=== PATIENT | female | born 1995 | race Caucasian/White ===

== ENCOUNTER 2017-10-31 08:31 | Emergency (ER) | payer MEDICAID, OTHER ==
[2017-10-31 08:53] VITALS: BP 102/73
--- NOTE | 2017-10-31 09:10 | ED Physician Documentation ---
History of Present Illness - Stated complaint Stated Complaint: FEVER - Chief complaint Chief Complaint: Heent - Additonal information Additional information: hx from pt 22 f has aspergers fever and sore throat since yesterday no cough NVD Review of Systems Constitutional: reports: Fever Ears: denies: Ear pain Throat: reports: Sore throat Respiratory: denies: Cough GI: denies: Vomiting, Diarrhea Skin: denies: Rash PD PAST MEDICAL HISTORY - Allergies Allergies/Adverse Reactions: Allergies Allergy/AdvReac Type Severity Reaction Status Date / Time No Known Drug Allergies Allergy Verified 10/31/17 08:53 PD ED PE NORMAL - Vitals Vital signs reviewed: Yes - General General: Alert and oriented X 3 - HEENT HEENT: PERRL, Ears normal, Moist mucous membranes, Pharynx benign - Neck Neck: Supple, no meningeal sign - Cardiac Cardiac: RRR - Respiratory Respiratory: No respiratory distress, Clear bilaterally - Abdomen Abdomen: Soft, Non tender, No organomegaly - Derm Derm: Normal color - Neuro Neuro: Alert and oriented X 3 Results - Vitals Vitals: Vital Signs - 24 hr 10/31/17 08:49 Temperature 36.2 C L Heart Rate 111 H Respiratory 20 Rate Blood Pressure 102/73 O2 Saturation 99 Oxygen O2 Source Room air - Labs Labs: Laboratory Tests 10/31/17 09:13 Group A Strep Rapid Negative Departure - Departure Disposition: 01 Home, Self Care Clinical Impression: Pharyngitis Qualifiers: Pharyngitis/tonsillitis etiology: unspecified etiology Qualified Code(s): J02.9 - Acute pharyngitis, unspecified Condition: Good Instructions: ED Pharyngitis Viral Report Pending Comments: The rapid strep test was negative A throat culture will also be run and we will call you if it is positive and antibiotics are needed Otherwise recommend motrin and tylenol for pain and fever Rest Plenty of fluids Forms: Activity restrictions
== END 2017-10-31 09:49 | disposition home or self-care (01) ==
LOC: ED 08:31
DX: J02.9 Acute pharyngitis, unspecified (principal)
CPT/HCPCS: 87070; 87430; 99282

== ENCOUNTER 2018-03-06 09:05 | Emergency (ER) | payer MEDICAID ==
--- NOTE | 2018-03-06 11:40 | ED Physician Documentation ---
PD HPI FEMALE - Stated complaint Stated Complaint: FEMALE - Chief complaint Chief Complaint: Abd Pain - History obtained from History obtained from: Patient - History of Present Illness Timing - onset: How many days ago (few) Timing - duration: Days Timing - details: Gradual onset, Still present Associated symptoms: Vaginal discharge, Dysuria. 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 : None - Present Medications Home Medications: Ambulatory Orders Medication Instructions Recorded Confirmed Fluconazole [Diflucan] 100 mg PO ONCE #2 tablet 03/06/18 Metronidazole [Flagyl] 500 mg PO BID #14 tablet 03/06/18 - Allergies Allergies/Adverse Reactions: Allergies Allergy/AdvReac Type Severity Reaction Status Date / Time No Known Drug Allergies Allergy Verified 03/06/18 09:52 - Social History Does the pt smoke?: No Smoking Status: Never smoker PD ED PE NORMAL - Vitals Vital signs reviewed: Yes - General General: Alert and oriented X 3, Well developed/nourished, Other (a bit anxious) - HEENT HEENT: Pharynx benign - Neck Neck: Supple, no meningeal sign, No adenopathy - Cardiac Cardiac: RRR, No murmur - Respiratory Respiratory: Clear bilaterally - Abdomen Abdomen: Soft, Non tender - 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 Was able to talk her through just vaginal swabs done with slightly parted labia. There was some whitish discharge noted. Labial area normal. ) - Rectal Rectal: Deferred - Back Back: No CVA TTP - Derm Derm: Normal color, Warm and dry Results - Vitals Vitals: Oxygen O2 Source Room air - Labs Labs: Microbiology 03/06/18 13:32 Wet Prep - Final Vaginal Laboratory Tests 03/06/18 03/06/18 03/06/18 12:22 12:22 13:32 Urine Color YELLOW Urine Clarity CLEAR Urine pH 6.0 Ur Specific [place] >=1.030 H >=1.030 H Urine Protein NEGATIVE Urine Glucose (UA) NEGATIVE Urine Ketones NEGATIVE Urine Occult Blood NEGATIVE Urine Nitrite NEGATIVE Urine Bilirubin NEGATIVE Urine Urobilinogen 1 (NORMAL) Ur Leukocyte Esterase NEGATIVE Ur Microscopic Review NOT INDICATED Urine Culture Comments NOT INDICATED Urine HCG, Qual NEGATIVE C.trachomatis RNA (TMA) NOT DETECTED Chlamydia/GC Comment SEE NOTE N.gonorrhoeae RNA (TMA) NOT DETECTED PD MEDICAL DECISION MAKING - ED course Complexity details: considered differential, d/w patient - Sepsis Event Vital Signs: Oxygen O2 Source Room air Departure - Departure Disposition: Home, Self Care Clinical Impression: Vaginal discharge, Bacterial vaginitis Condition: Stable Record reviewed to determine appropriate education?: Yes Instructions: ED Vaginosis Bacterial Prescriptions: Fluconazole [Diflucan] 100 mg PO ONCE #2 tablet Metronidazole [Flagyl] 500 mg PO BID #14 tablet Comments: The initial test of your vaginal discharge shows there to be a bacterial infection. There may be some element of yeast infection as well. We will treated with Flagyl antibiotic twice daily for a week. We will also give you an antifungal tablet to take initially in 2 days and then a repeat one at the end of the week of antibiotics. Drink lots of fluids. Tylenol or ibuprofen if needed for pains or discomfort. Follow-up with your primary care if this is not cleared up over the next several days to week. Discharge Date/Time: 03/06/18 14:30
[2018-03-06 12:31] LABS: BILIRUBIN,URINE NEGATIVE (NEGATIVE); GLUCOSE, URINE (UA) NEGATIVE (NEGATIVE); KETONES,URINE (UA) NEGATIVE (NEGATIVE); LEUKOCYTE ESTERASE, URINE NEGATIVE (NEGATIVE); NITRITE,URINE NEGATIVE (NEGATIVE); OCCULT BLOOD,URINE NEGATIVE (NEGATIVE); PROTEIN,URINE NEGATIVE (NEGATIVE); UROBILINOGEN,URINE 1 (NORMAL) E.U./dL (NORMAL)
[2018-03-06 12:35] LABS: CLARITY,URINE CLEAR (CLEAR); HCG UR QUAL NEGATIVE
[2018-03-06] MEDS ORDERED: metroNIDAZOLE 250 MG TABLET PO STA (14:07)
[2018-03-06 14:33] VITALS: BP 120/88
== END 2018-03-06 14:30 | disposition home or self-care (01) ==
LOC: ED 09:05
DX: N76.0 Acute vaginitis (principal)
CPT/HCPCS: 81003; 81025; 87210; 87491; 87591; 99283; A9270; 81001; 87086

== ENCOUNTER 2018-09-15 14:28 | Emergency (ER) | payer MEDICAID ==
[2018-09-15] MEDS ORDERED: DEXAMETHASONE 10 MG/ML VIAL PO STA (14:52)
[2018-09-15] MEDS ORDERED: guaiFENesin/CODEINE 5 ML UDC PO STA (14:52)
--- NOTE | 2018-09-15 14:53 | ED Physician Documentation ---
PD HPI URI - Stated complaint Stated Complaint: SORE THROAT/FEVER - Chief complaint Chief Complaint: Heent - History obtained from History obtained from: Patient, Family - History of Present Illness Timing - onset: Other (She is been sick for 3 days with cough, low-grade fevers, sore throat and difficulty swallowing. She has had some posttussive emesis. No sick contacts.) Review of Systems Constitutional: reports: Fever, Fatigue Nose: reports: Rhinorrhea / runny nose Throat: reports: Sore throat Respiratory: reports: Cough. 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 : None - Past Surgical History Past Surgical History: No - Present Medications Home Medications: Ambulatory Orders Medication Instructions Recorded Confirmed Fluconazole [Diflucan] 100 mg PO ONCE #2 tablet 03/06/18 Metronidazole [Flagyl] 500 mg PO BID #14 tablet 03/06/18 guaiFENesin/CODEINE [Robitussin AC] 5 - 10 ml PO Q6H PRN #120 ml 09/15/18 - Allergies Allergies/Adverse Reactions: Allergies Allergy/AdvReac Type Severity Reaction Status Date / Time No Known Drug Allergies Allergy Verified 09/15/18 14:35 - Social History Does the pt smoke?: No Smoking Status: Never smoker Does the pt drink ETOH?: Yes Does the pt have substance abuse?: No - Immunizations Immunizations are current?: Yes - POLST Patient has POLST: No PD ED PE NORMAL - Vitals Vital signs reviewed: Yes - General General: Alert and oriented X 3, No acute distress - HEENT HEENT: Pharynx benign - Neck Neck: Supple, no meningeal sign, No bony TTP, No adenopathy - Cardiac Cardiac: RRR, No murmur - Respiratory Respiratory: No respiratory distress, Clear bilaterally - Abdomen Abdomen: Non tender - Psych Psych: Normal mood, Normal affect Results - Vitals Vitals: Vital Signs - 24 hr 09/15/18 14:35 Temperature 36.8 C Heart Rate 98 Respiratory 16 Rate Blood Pressure 132/92 H O2 Saturation 97 Oxygen O2 Source Room air - Labs Labs: Laboratory Tests 09/15/18 09/15/18 14:40 14:40 Influenza A (Rapid) Negative Influenza B (Rapid) Negative Group A Strep Rapid Negative Departure - Departure Disposition: 01 Home, Self Care Clinical Impression: Viral URI with cough Condition: Good Record reviewed to determine appropriate education?: Yes Instructions: ED Upper Resp Infec No Abx Tx Prescriptions: guaiFENesin/CODEINE [Robitussin AC] 5 - 10 ml PO Q6H PRN #120 ml PRN Reason: Cough Comments: Recheck with your doctor midweek if not better, return for new or worsening symptoms. Your blood pressure was elevated today on check into the emergency department. This does not mean that you have hypertension, it is a common phenomenon to come to the emergency department and have elevated blood pressure. I recommend that you see your primary care physician within the week to have it rechecked when you are feeling better.
[2018-09-15 15:19] VITALS: BP 131/75
== END 2018-09-15 15:21 | disposition home or self-care (01) ==
LOC: ED 14:28
DX: J06.9 Acute upper respiratory infection, unspecified (principal); B97.89 Other viral agents as the cause of diseases classified elsewhere
CPT/HCPCS: 87070; 87275; 87276; 87430; 99283; A9270

== ENCOUNTER 2018-09-16 22:53 | Emergency (ER) | payer MEDICAID ==
[2018-09-16] MEDS ORDERED: IBUPROFEN 600 MG TABLET PO STA (23:38)
[2018-09-17] MEDS ORDERED: guaiFENesin/CODEINE 5 ML UDC PO STA (00:20)
[2018-09-17] MEDS ORDERED: BENZONATATE 100 MG CAPSULE PO STA (00:20)
[2018-09-17] MEDS ORDERED: DEXAMETHASONE 10 MG/ML VIAL PO STA (00:20)
[2018-09-17] MEDS ORDERED: ALBUTEROL NEB 2.5 MG/3 ML INH STA (00:20)
[2018-09-17 00:44] VITALS: BP 119/81
--- NOTE | 2018-09-17 00:46 | ED Physician Documentation ---
PD HPI URI - Stated complaint Stated Complaint: FEVER - Chief complaint Chief Complaint: Fever - History obtained from History obtained from: Patient, Family - History of Present Illness Timing - onset: How many days ago (4) Timing duration: Days (4) Timing details: Abrupt onset, Still present Associated symptoms: Fever, Chills, Nasal congestion, Dry cough, Chest pain (with coughing) Contributing factors: No: Sick contact, COPD / asthma Similar symptoms before: Has not had sx before Recently seen: Emergency Dept (yesterday and Dx with URi and given Rx for cough medication. Helps some but feeling some tightness in chest and still with cough that hurts in chest.) Review of Systems Constitutional: reports: Fever, Chills, Myalgias Nose: reports: Rhinorrhea / runny nose, Congestion Throat: denies: Sore throat Cardiac: reports: Chest pain / pressure (with coughing) Respiratory: reports: Dyspnea, Cough, Wheezing GI: denies: Vomiting, Diarrhea Skin: denies: Rash, Lesions Neurologic: reports: Generalized weakness. 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 HEENT: None Psych: Other Musculoskeletal: None Derm: None Other Past Medical History: Autism - Past Surgical History Past Surgical History: No HEENT: Other - Present Medications Home Medications: Ambulatory Orders Medication Instructions Recorded Confirmed guaiFENesin/CODEINE [Robitussin AC] 5 - 10 ml PO Q6H PRN #120 ml 09/15/18 Alprazolam [Xanax] 0.25 mg PO PRN PRN 09/16/18 09/16/18 Albuterol Sulf [Ventolin Hfa 1 - 2 puffs INH Q4HR PRN #1 inhaler 09/17/18 Inhaler] Benzonatate [Tessalon Perle] 100 mg PO TID PRN #20 capsule 09/17/18 Dexamethasone [Decadron] 4 mg PO DAILY #5 tablet 09/17/18 guaiFENesin/CODEINE [Robitussin AC] 7 ml PO Q6H PRN #240 ml 09/17/18 - Allergies Allergies/Adverse Reactions: Allergies Allergy/AdvReac Type Severity Reaction Status Date / Time No Known Drug Allergies Allergy Verified 09/16/18 23:04 - Social History Does the pt smoke?: No Smoking Status: Never smoker Does the pt drink ETOH?: Yes Does the pt have substance abuse?: No - Immunizations Immunizations are current?: Yes - POLST Patient has POLST: No PD ED PE NORMAL - Vitals Vital signs reviewed: Yes - General General: Alert and oriented X 3, No acute distress, Well developed/nourished - HEENT HEENT: Ears normal, Pharynx benign - Neck Neck: Supple, no meningeal sign, No adenopathy - Cardiac Cardiac: RRR, No murmur - Respiratory Respiratory: No: Clear bilaterally (some exp wheezing, more with cough.) - Abdomen Abdomen: Soft, Non tender - Derm Derm: Normal color, Warm and dry, No rash - Neuro Neuro: Alert and oriented X 3, No motor deficit, Normal speech Results - Vitals Vitals: Vital Signs - 24 hr 09/16/18 09/16/18 09/17/18 22:57 23:39 00:42 Temperature 38.6 C H 38.2 C H 38.2 C H Heart Rate 126 H 113 H 105 H Respiratory 22 18 21 Rate Blood Pressure 117/67 119/81 H O2 Saturation 97 96 09/17/18 00:45 Temperature Heart Rate 75 Respiratory 18 Rate Blood Pressure O2 Saturation Oxygen O2 Source Room air PD MEDICAL DECISION MAKING - ED course Complexity details: reviewed old records, considered differential (seems URI. consider flu. Having some wheezing and trouble breathing, so can give MDI and steroids. Dad says pt about out of the cough med, so can give Tessalon and more cough med. ), d/w patient, d/w family Departure - Departure Disposition: 01 Home, Self Care Clinical Impression: Viral URI with cough Condition: Stable Record reviewed to determine appropriate education?: Yes Instructions: ED Upper Resp Infec No Abx Tx Follow-Up: Lydia Siddiqui DO [Primary Care Provider] - Prescriptions: Albuterol Sulf [Ventolin Hfa Inhaler] 1 - 2 puffs INH Q4HR PRN #1 inhaler PRN Reason: Shortness Of Air/Wheezing Benzonatate [Tessalon Perle] 100 mg PO TID PRN #20 capsule PRN Reason: Cough Dexamethasone [Decadron] 4 mg PO DAILY #5 tablet guaiFENesin/CODEINE [Robitussin AC] 7 ml PO Q6H PRN #240 ml PRN Reason: Cough Comments: Stay well-hydrated. Tylenol or ibuprofen if needed for pains and fevers. Use the albuterol inhaler 2 puffs 4 times a day for the next week. Extra times if needed for wheezing and cough. Decadron steroid for inflammation of the bronchials and throat and these will help symptoms. Use is daily for the next 5 days. Tessalon if needed for cough. Add the codeine cough medicine if needed. Recheck if not improving over the next several days. Discharge Date/Time: 09/17/18 01:10
== END 2018-09-17 01:10 | disposition home or self-care (01) ==
LOC: ED 22:53
DX: J06.9 Acute upper respiratory infection, unspecified (principal)
CPT/HCPCS: 94640; 99283; A9270

== ENCOUNTER 2019-01-17 15:48 | Emergency (ER) | payer MEDICAID ==
[2019-01-17 16:30] LABS: BILIRUBIN,URINE NEGATIVE (NEGATIVE); GLUCOSE, URINE (UA) NEGATIVE (NEGATIVE); KETONES,URINE (UA) TRACE mg/dL (NEGATIVE); LEUKOCYTE ESTERASE, URINE NEGATIVE (NEGATIVE); NITRITE,URINE NEGATIVE (NEGATIVE); OCCULT BLOOD,URINE SMALL (NEGATIVE); PROTEIN,URINE TRACE mg/dL (NEGATIVE); UROBILINOGEN,URINE 1 (NORMAL) E.U./dL (NORMAL)
[2019-01-17 16:42] LABS: CLARITY,URINE HAZY (CLEAR); HCG UR QUAL NEGATIVE
[2019-01-17 16:43] LABS: BACTERIA,URINE Many /HPF (None Seen); RBC,URINE 0-5 /HPF (0-5); SQUAMOUS EPITHELIAL CELL,UR MANY Squamous (<= Few)
--- NOTE | 2019-01-17 17:06 | ED Physician Documentation ---
History of Present Illness - Stated complaint Stated Complaint: VOMITING - Chief complaint Chief Complaint: Abd Pain - History obtained from History obtained from: Patient - Additonal information Additional information: Patient is a 23-year-old female with history of autismAsperger's and ADHD presenting with her family with concern for worsening stress and anxiety over the past several days. Patient originally suffered a bug bite to the posterior aspect of her right lower leg that has now resolved. Patient denies pain, skin changes, swelling, or other complaints to the leg. However, her father assisted her with placing hydrocortisone cream on it as he and her mother have done previously. However, this time, the interaction caused anxiety and the patient. Patient and family deny any other inappropriate behavior or being unsafe at home. Patient also reports that she is experience some nausea and vomiting over the past several days without abdominal pain, but admits to little oral intake and otherwise using alcohol. Patient denies fever, urinary changes, stool changes or other complaints. No other improving or worsening factors noted. Review of Systems Constitutional: denies: Fever GI: reports: Nausea, Vomiting. 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 : None HEENT: None Psych: Other Musculoskeletal: None Derm: None - Past Surgical History Past Surgical History: No HEENT: Other - Present Medications Home Medications: Ambulatory Orders Medication Instructions Recorded Confirmed guaiFENesin/CODEINE [Robitussin AC] 5 - 10 ml PO Q6H PRN #120 ml 09/15/18 Alprazolam [Xanax] 0.25 mg PO PRN PRN 09/16/18 09/16/18 Benzonatate [Tessalon Perle] 100 mg PO TID PRN #20 capsule 09/17/18 RX: Albuterol Sulf [Ventolin Hfa 1 - 2 puffs INH Q4HR PRN #1 inhaler 09/17/18 Inhaler] dexAMETHasone [Decadron] 4 mg PO DAILY #5 tablet 09/17/18 guaiFENesin/CODEINE [Robitussin AC] 7 ml PO Q6H PRN #240 ml 09/17/18 - Allergies Allergies/Adverse Reactions: Allergies Allergy/AdvReac Type Severity Reaction Status Date / Time No Known Drug Allergies Allergy Verified 01/17/19 15:58 - Social History Does the pt smoke?: No Smoking Status: Never smoker Does the pt drink ETOH?: Yes Does the pt have substance abuse?: No - Immunizations Immunizations are current?: Yes - POLST Patient has POLST: No PD ED PE NORMAL - Vitals Vital signs reviewed: Yes - General General: Alert and oriented X 3, Well developed/nourished. No: No acute distress (Anxious) - HEENT HEENT: Atraumatic, Moist mucous membranes - Cardiac Cardiac: RRR, No murmur - Respiratory Respiratory: No respiratory distress, Clear bilaterally - Abdomen Abdomen: Normal bowel sounds, Soft, Non tender, Non distended - Derm Derm: Normal color, Warm and dry, No rash - Extremities Extremities: No deformity, No tenderness to palpate - Neuro Neuro: Alert and oriented X 3, No motor deficit, No sensory deficit - Psych Psych: Other (Anxious) Results - Vitals Vitals: Vital Signs - 24 hr 01/17/19 01/17/19 15:54 17:34 Temperature 36.4 C L 36.0 C L Heart Rate 100 88 Respiratory 19 18 Rate Blood Pressure 143/88 H 134/83 H O2 Saturation 96 97 Oxygen O2 Source Room air - Labs Labs: Laboratory Tests 01/17/19 16:17 Urine Color YELLOW Urine Clarity HAZY Urine pH 6.0 Ur Specific [place] >=1.030 H Urine Protein TRACE Urine Glucose (UA) NEGATIVE Urine Ketones TRACE Urine Occult Blood SMALL H Urine Nitrite NEGATIVE Urine Bilirubin NEGATIVE Urine Urobilinogen 1 (NORMAL) Ur Leukocyte Esterase NEGATIVE Urine RBC 0-5 Urine WBC 4-5 Ur Squamous Epith Cells MANY Squamous H Urine Bacteria Many H Ur Microscopic Review INDICATED Urine Culture Comments NOT INDICATED Urine HCG, Qual NEGATIVE PD MEDICAL DECISION MAKING - ED course Complexity details: considered differential, d/w patient, d/w family ED course: Patient appears to be struggling with anxiety at this time. She does admit to nausea and vomiting although has benign abdomen. Certainly, no acute or surgical abdomen present. Feel that the symptoms are likely reflective of her underlying anxiety, as well as her minimal oral intake combined with alcohol intake over the past few days. At this time, do not feel that she is at high risk for other intra-abdominal pathology, ovarian or pelvic pathology, systemic illness or other acute issues. Offered further evaluation, but patient also agrees that this is likely related to anxiety and declines. Do feel this is appropriate. Do not feel she requires screening lab work, urinalysis or other testing. Patient and family also declined anxiety medications. Patient and family feel that she is safe to discharge home. Discussed supportive cares, return precautions, appropriate follow-up. Departure - Departure Disposition: 01 Home, Self Care Clinical Impression: Anxiety Instructions: ED Stress React, ED Panic Attack Follow-Up: your,doctor [Other] - Within 3 Days Comments: Recommend rest, healthy diet, avoidance of alcohol and other drugs. Please follow-up with your primary care physician in next 2 to 3 days and return to ED sooner if experience worsening symptoms or have other concerns. Discharge Date/Time: 01/17/19 17:34
[2019-01-17 17:34] VITALS: BP 134/83
== END 2019-01-17 17:34 | disposition home or self-care (01) ==
LOC: ED 15:48
DX: F41.9 Anxiety disorder, unspecified (principal); F84.5 Asperger's syndrome; F90.9 Attention-deficit hyperactivity disorder, unspecified type
CPT/HCPCS: 80053; 81001; 81003; 81025; 83690; 85025; 87086; 99283

== ENCOUNTER 2019-01-18 05:13 | Emergency (ER) | payer MEDICAID ==
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
[2019-01-18 07:04] LABS: MUDS CUTOFF CONCENTRATIONS CUTOFF CONC BELOW:
[2019-01-18 07:06] LABS: CLARITY,URINE CLEAR (CLEAR); GLUCOSE, URINE (UA) NEGATIVE (NEGATIVE); KETONES,URINE (UA) >=80 mg/dL (NEGATIVE); LEUKOCYTE ESTERASE, URINE NEGATIVE (NEGATIVE); NITRITE,URINE NEGATIVE (NEGATIVE); OCCULT BLOOD,URINE TRACE-INTA (NEGATIVE); PROTEIN,URINE TRACE mg/dL (NEGATIVE); UROBILINOGEN,URINE 1 (NORMAL) E.U./dL (NORMAL)
[2019-01-18 07:09] LABS: BILIRUBIN,URINE NEGATIVE (NEGATIVE); HCG UR QUAL NEGATIVE; ICTOTEST,URINE NEGATIVE
[2019-01-18 07:14] LABS: BASOPHILS # (AUTO) 0.1 10^3/uL (0.0-0.1); BASOPHILS % (AUTO) 0.5 %; EOSINOPHILS # (AUTO) 0.1 10^3/uL (0.0-0.7); EOSINOPHILS % (AUTO) 0.3 %; HGB - HEMOGLOBIN 13.5 g/dL (12.0-16.0); LYMPHOCYTES # (AUTO) 4.8 10^3/uL (1.5-3.5); MEAN CORPUSCULAR HEMOGLOBIN 30.1 pg (27.0-31.0); MEAN CORPUSCULAR HGB CONC 33.8 g/dL (32.0-36.0); MEAN CORPUSCULAR VOLUME 89.3 fL (81.0-99.0); MEAN PLATELET VOLUME 10.1 fL (7.9-10.8); MONOCYTES # (AUTO) 1.1 10^3/uL (0.0-1.0); MONOCYTES % (AUTO) 7.1 %; NEUTROPHILS # (AUTO) 9.8 10^3/uL (1.5-6.6); NEUTROPHILS % (AUTO) 61.6 %; PLT - PLATELET COUNT 340 10^3/uL (130-450); RED BLOOD COUNT 4.48 10^6/uL (4.20-5.40)
[2019-01-18] MEDS ORDERED: LORazepam 0.5 MG TABLET PO STA (07:15)
[2019-01-18 07:16] LABS: AMPHETAMINE SCREEN,URINE NEGATIVE (NEGATIVE); BENZODIAZEPINES SCREEN, URINE POSITIVE (NEGATIVE); COCAINE SCREEN URINE NEGATIVE (NEGATIVE); METHADONE SCREEN, URINE NEGATIVE (NEGATIVE); METHAMPHETAMINES SCREEN, URINE NEGATIVE (NEGATIVE); OPIATE SCREEN, URINE NEGATIVE (NEGATIVE); OXYCODONE SCREEN, URINE NEGATIVE (NEGATIVE); PROPOXYPHENE SCREEN, URINE NEGATIVE (NEGATIVE); TRICYCLIC ANTIDEPRESSANT,URINE NEGATIVE (NEGATIVE)
[2019-01-18 07:29] LABS: ACETAMINOPHEN < 10 ug/mL (10-30); ALBUMIN 4.3 g/dL (3.2-5.5); ALBUMIN/GLOBULIN RATIO 1.1 (1.0-2.2); ALKALINE PHOSPHATASE 59 IU/L (42-121); ALT ALANINE AMINOTRANSFERASE 18 IU/L (10-60); AST ASPARTATE AMINOTRANSFERASE 21 IU/L (10-42); BILIRUBIN,TOTAL 1.1 mg/dL (0.2-1.0); BUN - BLOOD UREA NITROGEN 10 mg/dL (6-20); CALCIUM 9.2 mg/dL (8.5-10.3); CARBON DIOXIDE - CO2 20 mmol/L (21-32); CHLORIDE 104 mmol/L (101-111); CREATININE 0.7 mg/dL (0.4-1.0); GFR - MDRD 105 (>89); GLUCOSE 92 mg/dL (70-100); LIPASE 42 U/L (22-51); SALICYLATE < 6.0 mg/dL; SODIUM 140 mmol/L (135-145); TOTAL PROTEIN 8.1 g/dL (6.7-8.2)
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
[2019-01-18 11:14] VITALS: BP 134/87
== END 2019-01-18 11:00 | disposition home or self-care (01) ==
LOC: ED 05:13
DX: F41.9 Anxiety disorder, unspecified (principal); G47.00 Insomnia, unspecified; F43.10 Post-traumatic stress disorder, unspecified; Z62.810 Personal history of physical and sexual abuse in childhood; F84.5 Asperger's syndrome; F17.200 Nicotine dependence, unspecified, uncomplicated
CPT/HCPCS: 36415; 80053; 80306; 80307; 80320; 80329; 81003; 81025; 83690; 84443; 85025; 99283; A9270; 81001; 87086

== ENCOUNTER 2019-01-18 22:22 | Emergency (ER) | payer MEDICAID ==
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
[2019-01-18] MEDS ORDERED: LORazepam 1 MG TABLET PO STA (23:19)
[2019-01-18 23:32] LABS: GLUCOSE, URINE (UA) NEGATIVE (NEGATIVE); KETONES,URINE (UA) >=80 mg/dL (NEGATIVE); LEUKOCYTE ESTERASE, URINE TRACE (NEGATIVE); NITRITE,URINE NEGATIVE (NEGATIVE); OCCULT BLOOD,URINE TRACE-LYSE (NEGATIVE); PROTEIN,URINE NEGATIVE (NEGATIVE); UROBILINOGEN,URINE 2 E.U./dL (NORMAL)
[2019-01-18 23:33] LABS: CLARITY,URINE CLEAR (CLEAR)
[2019-01-18 23:34] LABS: BILIRUBIN,URINE NEGATIVE (NEGATIVE); HCG UR QUAL NEGATIVE; ICTOTEST,URINE NEGATIVE
[2019-01-18 23:39] LABS: BACTERIA,URINE Moderate /HPF (None Seen); CRYSTALS,URINE 3-5 Calcium Oxalate /LPF; MUCUS,URINE Moderate Strands; RBC,URINE 0-5 /HPF (0-5); SQUAMOUS EPITHELIAL CELL,UR MOD Squamous (<= Few)
[2019-01-18 23:46] LABS: BASOPHILS % (AUTO) 0.4 %; EOSINOPHILS % (AUTO) 0.3 %; LYMPHOCYTES # (AUTO) 2.4 10^3/uL (1.5-3.5); LYMPHOCYTES % (AUTO) 21.7 %; MEAN CORPUSCULAR HGB CONC 33.9 g/dL (32.0-36.0); MEAN CORPUSCULAR VOLUME 88.5 fL (81.0-99.0); MEAN PLATELET VOLUME 9.9 fL (7.9-10.8); MONOCYTES # (AUTO) 0.7 10^3/uL (0.0-1.0); MONOCYTES % (AUTO) 6.3 %; NEUTROPHILS # (AUTO) 7.7 10^3/uL (1.5-6.6); NEUTROPHILS % (AUTO) 70.7 %; PLT - PLATELET COUNT 316 10^3/uL (130-450); RED BLOOD COUNT 4.34 10^6/uL (4.20-5.40); WHITE BLOOD COUNT 10.9 x10^3/uL (4.8-10.8)
[2019-01-19] LABS: ACETAMINOPHEN < 10 ug/mL (10-30); BUN - BLOOD UREA NITROGEN 9 mg/dL (6-20); CALCIUM 9.3 mg/dL (8.5-10.3); CARBON DIOXIDE - CO2 20 mmol/L (21-32); CHLORIDE 104 mmol/L (101-111); CREATININE 0.7 mg/dL (0.4-1.0); GFR - MDRD 105 (>89); GLUCOSE 83 mg/dL (70-100); SALICYLATE < 6.0 mg/dL; SODIUM 139 mmol/L (135-145)
[2019-01-19] MEDS ORDERED: LORazepam 0.5 MG TABLET PO STA ×2 (05:06→05:46)
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
[2019-01-19 07:49] LABS: MUDS CUTOFF CONCENTRATIONS CUTOFF CONC BELOW:
[2019-01-19 08:01] LABS: AMPHETAMINE SCREEN,URINE NEGATIVE (NEGATIVE); BENZODIAZEPINES SCREEN, URINE POSITIVE (NEGATIVE); COCAINE SCREEN URINE NEGATIVE (NEGATIVE); METHADONE SCREEN, URINE NEGATIVE (NEGATIVE); METHAMPHETAMINES SCREEN, URINE NEGATIVE (NEGATIVE); OPIATE SCREEN, URINE NEGATIVE (NEGATIVE); OXYCODONE SCREEN, URINE NEGATIVE (NEGATIVE); PROPOXYPHENE SCREEN, URINE NEGATIVE (NEGATIVE); TRICYCLIC ANTIDEPRESSANT,URINE NEGATIVE (NEGATIVE)
[2019-01-19] MEDS ORDERED: LORazepam 1 MG TABLET PO STA ×2 (13:27→21:27)
--- NOTE | 2019-01-19 18:09 | ED Physician Documentation ---
ED Addendum - Addendum Addendum: 01/19/19 18:08 SW and MARCUS are evaluating the patient. Signed out to oncoming emergency department physician
[2019-01-19 23:27] VITALS: BP 126/85
== END 2019-01-19 23:20 | disposition home or self-care (01) ==
LOC: ED 22:22
DX: F41.9 Anxiety disorder, unspecified (principal); G47.00 Insomnia, unspecified; F43.10 Post-traumatic stress disorder, unspecified; Z62.810 Personal history of physical and sexual abuse in childhood; F84.5 Asperger's syndrome; F17.200 Nicotine dependence, unspecified, uncomplicated
CPT/HCPCS: 36415; 80048; 80053; 80306; 80307; 80320; 80329; 81001; 81003; 81025; 83690; 84443; 85025; 99283; A9270; J8499; 87086

== ENCOUNTER 2019-02-03 06:50 | Emergency (ER) | payer MEDICAID ==
[2019-02-03 06:57] VITALS: BP 119/74
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
== END 2019-02-03 08:32 | disposition home or self-care (01) ==
LOC: ED 06:50
DX: F43.10 Post-traumatic stress disorder, unspecified (principal); F17.200 Nicotine dependence, unspecified, uncomplicated
CPT/HCPCS: 99282; 99283

== ENCOUNTER 2019-02-15 20:32 | Outpatient (CLI) | payer MEDICAID | END 2019-02-15 20:33 | disposition EMS.NT | LOC: EMS 20:32 | PROVIDERS: ATTEND Surgery | DX: R45.89 Other symptoms and signs involving emotional state (principal); F41.9 Anxiety disorder, unspecified ==

== ENCOUNTER 2019-02-15 21:15 | Emergency (ER) | payer MEDICAID ==
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
[2019-02-15 23:07] LABS: BASOPHILS % (AUTO) 0.4 %; EOSINOPHILS # (AUTO) 0.1 10^3/uL (0.0-0.7); HGB - HEMOGLOBIN 13.6 g/dL (12.0-16.0); LYMPHOCYTES % (AUTO) 38.5 %; MEAN CORPUSCULAR HEMOGLOBIN 29.8 pg (27.0-31.0); MEAN CORPUSCULAR VOLUME 90.2 fL (81.0-99.0); MEAN PLATELET VOLUME 10.5 fL (7.9-10.8); MONOCYTES # (AUTO) 0.6 10^3/uL (0.0-1.0); MONOCYTES % (AUTO) 5.5 %; NEUTROPHILS # (AUTO) 5.7 10^3/uL (1.5-6.6); NEUTROPHILS % (AUTO) 54.3 %; PLT - PLATELET COUNT 314 10^3/uL (130-450); RED BLOOD COUNT 4.57 10^6/uL (4.20-5.40); RED CELL DISTRIBUTION WIDTH 12.1 % (12.0-15.0); WHITE BLOOD COUNT 10.5 x10^3/uL (4.8-10.8)
[2019-02-15 23:16] LABS: BILIRUBIN,URINE NEGATIVE (NEGATIVE); GLUCOSE, URINE (UA) NEGATIVE (NEGATIVE); KETONES,URINE (UA) TRACE mg/dL (NEGATIVE); LEUKOCYTE ESTERASE, URINE NEGATIVE (NEGATIVE); NITRITE,URINE NEGATIVE (NEGATIVE); OCCULT BLOOD,URINE NEGATIVE (NEGATIVE); PROTEIN,URINE NEGATIVE (NEGATIVE); UROBILINOGEN,URINE 1 (NORMAL) E.U./dL (NORMAL)
[2019-02-15 23:18] LABS: CLARITY,URINE CLEAR (CLEAR); HCG UR QUAL NEGATIVE; MUDS CUTOFF CONCENTRATIONS CUTOFF CONC BELOW:
[2019-02-15 23:29] LABS: AMPHETAMINE SCREEN,URINE NEGATIVE (NEGATIVE); BENZODIAZEPINES SCREEN, URINE POSITIVE (NEGATIVE); COCAINE SCREEN URINE NEGATIVE (NEGATIVE); METHADONE SCREEN, URINE NEGATIVE (NEGATIVE); METHAMPHETAMINES SCREEN, URINE NEGATIVE (NEGATIVE); OPIATE SCREEN, URINE NEGATIVE (NEGATIVE); OXYCODONE SCREEN, URINE NEGATIVE (NEGATIVE); PROPOXYPHENE SCREEN, URINE NEGATIVE (NEGATIVE); TRICYCLIC ANTIDEPRESSANT,URINE NEGATIVE (NEGATIVE)
[2019-02-15 23:37] LABS: ACETAMINOPHEN < 10 ug/mL (10-30); SALICYLATE < 6.0 mg/dL
[2019-02-15 23:39] LABS: BUN - BLOOD UREA NITROGEN 13 mg/dL (6-20); CALCIUM 9.3 mg/dL (8.5-10.3); CARBON DIOXIDE - CO2 20 mmol/L (21-32); CHLORIDE 106 mmol/L (101-111); CREATININE 0.7 mg/dL (0.4-1.0); GFR - MDRD 105 (>89); GLUCOSE 90 mg/dL (70-100); SODIUM 139 mmol/L (135-145)
[2019-02-16 10:27] VITALS: BP 117/70
== END 2019-02-16 10:27 | disposition home or self-care (01) ==
LOC: ED 21:15
DX: F41.9 Anxiety disorder, unspecified (principal); F43.10 Post-traumatic stress disorder, unspecified; F17.200 Nicotine dependence, unspecified, uncomplicated
CPT/HCPCS: 36415; 80048; 80306; 80307; 80320; 80329; 81001; 81003; 81025; 85025; 87086; 99283; 99284

== ENCOUNTER 2019-02-16 22:28 | Outpatient (CLI) | payer MEDICAID | END 2019-02-16 22:29 | disposition critical access hospital (66) | LOC: EMS 22:28 | PROVIDERS: ATTEND Surgery | DX: R45.89 Other symptoms and signs involving emotional state (principal); F41.9 Anxiety disorder, unspecified | CPT/HCPCS: A0425; A0429; A0999 ==

== ENCOUNTER 2019-02-16 22:44 | Emergency (ER) | payer MEDICAID ==
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
[2019-02-17 00:43] LABS: MUDS CUTOFF CONCENTRATIONS CUTOFF CONC BELOW:
[2019-02-17 01:03] LABS: AMPHETAMINE SCREEN,URINE NEGATIVE (NEGATIVE); BENZODIAZEPINES SCREEN, URINE POSITIVE (NEGATIVE); COCAINE SCREEN URINE NEGATIVE (NEGATIVE); METHADONE SCREEN, URINE NEGATIVE (NEGATIVE); METHAMPHETAMINES SCREEN, URINE NEGATIVE (NEGATIVE); OPIATE SCREEN, URINE NEGATIVE (NEGATIVE); OXYCODONE SCREEN, URINE NEGATIVE (NEGATIVE); PROPOXYPHENE SCREEN, URINE NEGATIVE (NEGATIVE); TRICYCLIC ANTIDEPRESSANT,URINE NEGATIVE (NEGATIVE)
[2019-02-17 01:06] LABS: ACETAMINOPHEN < 10 ug/mL (10-30); SALICYLATE < 6.0 mg/dL
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
[2019-02-17 09:23] VITALS: BP 120/81
[2019-02-17 10:53] LABS: BASOPHILS % (AUTO) 0.1 %; EOSINOPHILS # (AUTO) 0.1 10^3/uL (0.0-0.7); EOSINOPHILS % (AUTO) 1.1 %; HGB - HEMOGLOBIN 12.6 g/dL (12.0-16.0); LYMPHOCYTES # (AUTO) 2.5 10^3/uL (1.5-3.5); MEAN CORPUSCULAR HEMOGLOBIN 29.1 pg (27.0-31.0); MEAN CORPUSCULAR HGB CONC 32.3 g/dL (32.0-36.0); MEAN CORPUSCULAR VOLUME 90.1 fL (81.0-99.0); MEAN PLATELET VOLUME 10.5 fL (7.9-10.8); MONOCYTES # (AUTO) 0.5 10^3/uL (0.0-1.0); MONOCYTES % (AUTO) 6.7 %; NEUTROPHILS # (AUTO) 4.1 10^3/uL (1.5-6.6); NEUTROPHILS % (AUTO) 56.8 %; PLT - PLATELET COUNT 263 10^3/uL (130-450); RED BLOOD COUNT 4.33 10^6/uL (4.20-5.40); RED CELL DISTRIBUTION WIDTH 12.3 % (12.0-15.0); WHITE BLOOD COUNT 7.2 x10^3/uL (4.8-10.8)
[2019-02-17 11:13] LABS: ALBUMIN 3.8 g/dL (3.2-5.5); ALBUMIN/GLOBULIN RATIO 1.2 (1.0-2.2); BILIRUBIN,TOTAL 0.6 mg/dL (0.2-1.0); CREATININE 0.8 mg/dL (0.4-1.0); TOTAL PROTEIN 7.1 g/dL (6.7-8.2)
--- NOTE | 2019-02-17 12:19 | ED Physician Documentation ---
PD HPI MHE - Stated complaint Stated Complaint: ANXIETY - Chief complaint Chief Complaint: MHE - History obtained from History obtained from: Patient - Additional information Additional information: Hx of PTSD wants admission for stabilization feels better now and wants to go home. She has appointment to see provider at [facility] today. 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 : None HEENT: None Psych: Anxiety, Post traumatic stress disorder, Other Musculoskeletal: None Derm: None - Past Surgical History Past Surgical History: Yes General: Other HEENT: Other - Present Medications Home Medications: Ambulatory Orders Medication Instructions Recorded Confirmed Bcp 01/18/19 Lorazepam [Ativan] 1 mg PO TID PRN #10 tablet 01/19/19 02/15/19 FLUoxetine [PROzac] 1 cap PO DAILY 02/03/19 02/15/19 - Allergies Allergies/Adverse Reactions: Allergies Allergy/AdvReac Type Severity Reaction Status Date / Time No Known Drug Allergies Allergy Verified 02/15/19 21:22 - Social History Does the pt smoke?: Yes Smoking Status: Former smoker Does the pt drink ETOH?: No Does the pt have substance abuse?: No - Immunizations Immunizations are current?: Yes - POLST Patient has POLST: No Results - Vitals Vitals: Vital Signs - 24 hr 02/16/19 02/17/19 22:48 09:23 Temperature 36 C L Heart Rate 100 81 Respiratory 22 19 Rate Blood Pressure 135/84 H 120/81 H O2 Saturation 100 99 Oxygen O2 Source Room air - Labs Labs: Laboratory Tests 02/17/19 02/17/19 02/17/19 00:35 00:48 10:28 WBC 7.2 RBC 4.33 Hgb 12.6 Hct 39.0 MCV 90.1 MCH 29.1 MCHC 32.3 RDW 12.3 Plt Count 263 MPV 10.5 Neut # (Auto) 4.1 Lymph # (Auto) 2.5 [place] # (Auto) 0.5 Eos # (Auto) 0.1 Baso # (Auto) 0.0 Absolute Nucleated RBC 0.00 Nucleated RBC % 0.0 Sodium Potassium Chloride Carbon Dioxide Anion Gap BUN Creatinine Estimated GFR (MDRD) Glucose Calcium Total Bilirubin AST ALT Alkaline Phosphatase Total Protein Albumin Globulin Albumin/Globulin Ratio Lipase Salicylates < 6.0 Urine Opiates Screen NEGATIVE Ur Oxycodone Screen NEGATIVE Urine Methadone Screen NEGATIVE Ur Propoxyphene Screen NEGATIVE Acetaminophen < 10 L Ur Barbiturates Screen NEGATIVE Ur Tricyclics Screen NEGATIVE Ur Phencyclidine Scrn NEGATIVE Ur Amphetamine Screen NEGATIVE U Methamphetamines Scrn NEGATIVE U Benzodiazepines Scrn POSITIVE H Urine Cocaine Screen NEGATIVE U Cannabinoids Screen NEGATIVE Ethyl Alcohol < 5.0 02/17/19 10:28 WBC RBC Hgb Hct MCV MCH MCHC RDW Plt Count MPV Neut # (Auto) Lymph # (Auto) [place] # (Auto) Eos # (Auto) Baso # (Auto) Absolute Nucleated RBC Nucleated RBC % Sodium 137 Potassium 3.7 Chloride 103 Carbon Dioxide 21 Anion Gap 13.0 BUN 8 Creatinine 0.8 Estimated GFR (MDRD) 90 Glucose 125 H Calcium 9.0 Total Bilirubin 0.6 AST 21 ALT 23 Alkaline Phosphatase 60 Total Protein 7.1 Albumin 3.8 Globulin 3.3 Albumin/Globulin Ratio 1.2 Lipase 47 Salicylates Urine Opiates Screen Ur Oxycodone Screen Urine Methadone Screen Ur Propoxyphene Screen Acetaminophen Ur Barbiturates Screen Ur Tricyclics Screen Ur Phencyclidine Scrn Ur Amphetamine Screen U Methamphetamines Scrn U Benzodiazepines Scrn Urine Cocaine Screen U Cannabinoids Screen Ethyl Alcohol PD MEDICAL DECISION MAKING - ED course Complexity details: considered differential, d/w patient ED course: 23-year-old female with history of PTSD and Asperger's syndrome has had another visit to the emergency department with a panic attack and symptoms and the tele- psych provider recommended inpatient treatment and this is not available for the patient today. She does have an appointment to see her provider at 2:00 in the afternoon today and after evaluation by the social economist the patient is discharged to home to see her provider at 2 PM and to see a counselor on both Sunday and of this week. Departure - Departure Disposition: Home, Self Care Clinical Impression: Posttraumatic stress disorder, Anxiety Condition: Stable Instructions: ED Stress React, ED Panic Attack Follow-Up: Yamilet Muir PA [Primary Care Provider] - Comments: Follow up with your provider at [facility] today as planned at 2pm
== END 2019-02-17 12:27 | disposition home or self-care (01) ==
LOC: EDUNIT# → ED 22:44
DX: F41.0 Panic disorder [episodic paroxysmal anxiety] (principal); F43.10 Post-traumatic stress disorder, unspecified; Z62.810 Personal history of physical and sexual abuse in childhood; F84.5 Asperger's syndrome; Z87.891 Personal history of nicotine dependence
CPT/HCPCS: 36415; 80053; 80306; 80307; 80320; 80329; 83690; 85025; 99283; 99284

== ENCOUNTER 2019-06-07 09:31 | Emergency (ER) | payer MEDICAID ==
[2019-06-07 10:38] LABS: BILIRUBIN,URINE NEGATIVE (NEGATIVE); GLUCOSE, URINE (UA) NEGATIVE (NEGATIVE); KETONES,URINE (UA) NEGATIVE (NEGATIVE); LEUKOCYTE ESTERASE, URINE TRACE (NEGATIVE); NITRITE,URINE NEGATIVE (NEGATIVE); OCCULT BLOOD,URINE NEGATIVE (NEGATIVE); PH,URINE 5.5 PH (5.0-7.5); PROTEIN,URINE NEGATIVE (NEGATIVE); UROBILINOGEN,URINE 0.2 (NORMAL) E.U./dL (NORMAL)
--- NOTE | 2019-06-07 10:39 | ED Physician Documentation ---
PD HPI FEMALE - Stated complaint Stated Complaint: FEMALE - Chief complaint Chief Complaint: UTI - History obtained from History obtained from: Patient - History of Present Illness Timing - onset: Yesterday Timing - duration: Days (2) Timing - details: Abrupt onset, Still present Associated symptoms: No: Vaginal bleeding, Vaginal discharge (but having redness of labia and itching. Denies sexual activity. No condom use. No lotions nor creams.) Contributing factors: control. No: Condoms, Sexually active Similar symptoms before: Has not had sx before Review of Systems Constitutional: denies: Fever, Chills Nose: denies: Rhinorrhea / runny nose, Congestion Throat: denies: Sore throat Respiratory: denies: Cough GI: denies: Abdominal Pain, Nausea, Vomiting, Diarrhea : denies: Dysuria, Frequency, Vaginal bleeding, Irregular menses PD PAST MEDICAL HISTORY - Past Medical History Cardiovascular: None Respiratory: None Neuro: Other Endocrine/Autoimmune: None GI: None TREATMENT SPECIALIST: None : None HEENT: None Psych: Anxiety, Post traumatic stress disorder, Other Musculoskeletal: None Derm: None - Past Surgical History Past Surgical History: Yes General: Other HEENT: Other - Present Medications Home Medications: Ambulatory Orders Medication Instructions Recorded Confirmed Bcp 01/18/19 Lorazepam [Ativan] 1 mg PO TID PRN #10 tablet 01/19/19 02/15/19 FLUoxetine [PROzac] 1 cap PO DAILY 02/03/19 02/15/19 Clotrimazole/Betamethasone Crm 1 applic TOP BID #15 g 06/07/19 [Lotrisone Cream] Fluconazole [Diflucan] 150 mg PO ONCE #2 tablet 06/07/19 - Allergies Allergies/Adverse Reactions: Allergies Allergy/AdvReac Type Severity Reaction Status Date / Time No Known Drug Allergies Allergy Verified 06/07/19 09:41 - Social History Does the pt smoke?: Yes Smoking Status: Current some day smoker Does the pt drink ETOH?: Yes Does the pt have substance abuse?: No - Immunizations Immunizations are current?: Yes - POLST Patient has POLST: No PD ED PE NORMAL - Vitals Vital signs reviewed: Yes - General General: Alert and oriented X 3, No acute distress, Well developed/nourished - HEENT HEENT: Pharynx benign - Neck Neck: Supple, no meningeal sign, No adenopathy - Cardiac Cardiac: RRR, No murmur - Respiratory Respiratory: Clear bilaterally - Abdomen Abdomen: Soft, Non tender - Female Female : Shot Hole Shooter present, Other (some redness at inner labia. Introitus with some redness as well and tender. The vault has moderate white discharge, thicker, c/w likely yeast vaginitis. No cervical discharge. ) - Rectal Rectal: Deferred - Back Back: No CVA TTP - Derm Derm: Normal color Results - Vitals Vitals: Vital Signs - 24 hr 06/07/19 06/07/19 09:39 11:57 Temperature 36.6 C Heart Rate 80 67 Respiratory 12 16 Rate Blood Pressure 126/70 123/70 O2 Saturation 98 97 Oxygen O2 Source Room air - Labs Labs: Laboratory Tests 06/07/19 06/07/19 06/07/19 10:26 10:26 11:40 Urine Color YELLOW Urine Clarity CLEAR Urine pH 5.5 Ur Specific [place] 1.025 1.025 Urine Protein NEGATIVE Urine Glucose (UA) NEGATIVE Urine Ketones NEGATIVE Urine Occult Blood NEGATIVE Urine Nitrite NEGATIVE Urine Bilirubin NEGATIVE Urine Urobilinogen 0.2 (NORMAL) Ur Leukocyte Esterase TRACE H Urine RBC None Seen Urine WBC 4-5 Ur Squamous Epith Cells FEW Squamous Urine Bacteria Moderate H Urine Mucus Marked Strands Ur Microscopic Review INDICATED Urine Culture Comments INDICATED Urine HCG, Qual NEGATIVE C. glabrata (PCR) C. krusei (PCR) Gela species DNA Chlam trachomat DNA PCR NEGATIVE N.gonorrhoeae DNA (PCR) NEGATIVE T. vaginalis (PCR) NEGATIVE Bact Vaginosis (PCR) 06/07/19 11:40 Urine Color Urine Clarity Urine pH Ur Specific [place] Urine Protein Urine Glucose (UA) Urine Ketones Urine Occult Blood Urine Nitrite Urine Bilirubin Urine Urobilinogen Ur Leukocyte Esterase Urine RBC Urine WBC Ur Squamous Epith Cells Urine Bacteria Urine Mucus Ur Microscopic Review Urine Culture Comments Urine HCG, Qual C. glabrata (PCR) NEGATIVE C. krusei (PCR) NEGATIVE Gela species DNA NEGATIVE Chlam trachomat DNA PCR N.gonorrhoeae DNA (PCR) T. vaginalis (PCR) NEGATIVE Bact Vaginosis (PCR) NEGATIVE PD MEDICAL DECISION MAKING - ED course Complexity details: considered differential (looks like yeast vaginitis. Can get samples for BV and STD. ), d/w patient Departure - Departure Disposition: 01 Home, Self Care Clinical Impression: Yeast vaginitis Condition: Stable Record reviewed to determine appropriate education?: Yes Instructions: ED Vaginal Infec Fungal Gela Follow-Up: Yamilet Muir PA [Primary Care Provider] - Prescriptions: Clotrimazole/Betamethasone Crm [Lotrisone Cream] 1 applic TOP BID #15 g Fluconazole [Diflucan] 150 mg PO ONCE #2 tablet Comments: It does look like a yeast infection on exam. We did some swab cultures that will tell us if there is a bacterial infection as well. This will result in 1 or 2 days and will call you if there is bacterial infection too. Meanwhile we will treated as yeast vaginal infection with antifungal tablets today here and repeated in 3 days and 7 days from now. You can also topically use an antifungal/anti-inflammatory cream that I wrote a prescription for. Tylenol or ibuprofen if needed for pains. Recheck if not improving well over the next few days. Discharge Date/Time: 06/07/19 12:04
[2019-06-07 10:40] LABS: CLARITY,URINE CLEAR (CLEAR); HCG UR QUAL NEGATIVE
[2019-06-07 10:50] LABS: BACTERIA,URINE Moderate /HPF (None Seen); MUCUS,URINE Marked Strands; RBC,URINE None Seen /HPF (0-5); SQUAMOUS EPITHELIAL CELL,UR FEW Squamous (<= Few)
[2019-06-07] MEDS ORDERED: FLUCONAZOLE 100 MG TABLET PO STA (11:03)
[2019-06-07 11:58] VITALS: BP 123/70
[2019-06-07 17:47] LABS: CANDIDA GROUP DNA NEGATIVE (NEGATIVE); CANDIDA KRUSEI DNA NEGATIVE (NEGATIVE); TRICHOMONAS VAGINALIS DNA NEGATIVE (NEGATIVE)
[2019-06-07 21:46] LABS: TRICHOMONAS VAGINALIS DNA NEGATIVE (NEGATIVE)
== END 2019-06-07 12:04 | disposition home or self-care (01) ==
LOC: ED 09:31
DX: B37.3 Candidiasis of vulva and vagina (principal); F17.200 Nicotine dependence, unspecified, uncomplicated
CPT/HCPCS: 81001; 81025; 87086; 87481; 87491; 87591; 87661; 87801; 99283; 99284; A9270; 81003

== ENCOUNTER 2019-07-03 15:41 | Emergency (ER) | payer MEDICAID ==
[2019-07-03 16:05] LABS: RAPID STREP SCREEN Negative (Negative)
--- NOTE | 2019-07-03 16:08 | ED Physician Documentation ---
PD HPI HEENT - Stated complaint Stated Complaint: SORE THROAT - Chief complaint Chief Complaint: Heent - History obtained from History obtained from: Patient, Family - History of Present Illness Timing - onset: Other (2 days of sore throat with chills but no body aches or fever. No other respiratory symptoms.) Review of Systems Constitutional: reports: Chills. 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 : None HEENT: None Psych: Anxiety, Post traumatic stress disorder, Other Musculoskeletal: None Derm: None - Past Surgical History Past Surgical History: Yes General: Other HEENT: Other - Present Medications Home Medications: Ambulatory Orders Medication Instructions Recorded Confirmed Bcp 01/18/19 Lorazepam [Ativan] 1 mg PO TID PRN #10 tablet 01/19/19 02/15/19 FLUoxetine [PROzac] 1 cap PO DAILY 02/03/19 02/15/19 Clotrimazole/Betamethasone Crm 1 applic TOP BID #15 g 06/07/19 [Lotrisone Cream] Fluconazole [Diflucan] 150 mg PO ONCE #2 tablet 06/07/19 - Allergies Allergies/Adverse Reactions: Allergies Allergy/AdvReac Type Severity Reaction Status Date / Time No Known Drug Allergies Allergy Verified 07/03/19 15:44 - Social History Does the pt smoke?: Yes Smoking Status: Current every day smoker Does the pt drink ETOH?: Yes Does the pt have substance abuse?: No - Immunizations Immunizations are current?: Yes - POLST Patient has POLST: No PD ED PE NORMAL - Vitals Vital signs reviewed: Yes - General General: Alert and oriented X 3, No acute distress - HEENT HEENT: Ears normal, Other (Visualized portions of the oropharynx are normal) - Neck Neck: Supple, no meningeal sign, No bony TTP - Derm Derm: No rash Results - Vitals Vitals: Vital Signs - 24 hr 07/03/19 15:44 Temperature 36.6 C Heart Rate 76 Respiratory 16 Rate Blood Pressure 112/60 O2 Saturation 98 Oxygen O2 Source Room air - Labs Labs: Laboratory Tests 07/03/19 15:47 Group A Strep Rapid Negative Departure - Departure Disposition: Home, Self Care Clinical Impression: Viral pharyngitis Condition: Good Record reviewed to determine appropriate education?: Yes Instructions: ED Pharyngitis Viral Report Pending Comments: Ibuprofen as needed for pain, return for new or worsening symptoms. Follow-up with your doctor in 1 week if not better.
[2019-07-03] MEDS ORDERED: CHERRY SYRUP 10 ML UDC PO ONE (16:15)
[2019-07-03] MEDS ORDERED: DEXAMETHASONE 10 MG/ML VIAL PO STA (16:15)
[2019-07-03 16:25] VITALS: BP 116/74
== END 2019-07-03 16:26 | disposition home or self-care (01) ==
LOC: ED 15:41
DX: J02.8 Acute pharyngitis due to other specified organisms (principal); F17.200 Nicotine dependence, unspecified, uncomplicated
CPT/HCPCS: 87070; 87430; 99283; A9270

== ENCOUNTER 2020-04-13 06:07 | Outpatient (CLI) | payer MEDICAID | END 2020-04-13 06:08 | disposition critical access hospital (66) | LOC: EMS 06:07 | PROVIDERS: ATTEND Surgery | DX: R11.2 Nausea with vomiting, unspecified (principal); R19.7 Diarrhea, unspecified; R10.9 Unspecified abdominal pain | CPT/HCPCS: A0425; A0429 ==

== ENCOUNTER 2020-04-13 06:22 | Emergency (ER) | payer MEDICAID ==
[2020-04-13] MEDS ORDERED: LIDOCAINE VISCOUS 2% 15 ML UDC MM STA (06:35)
[2020-04-13] MEDS ORDERED: SODIUM CHLORIDE 0.9% 1,000 ML IV STA (06:35)
[2020-04-13] MEDS ORDERED: MAG HYDROX/AL HYDROX/SIMETH 30 ML UDC PO STA (06:36)
--- NOTE | 2020-04-13 06:39 | ED Physician Documentation ---
PD HPI NVD - Stated complaint Stated Complaint: N/V - Chief complaint Chief Complaint: Abd Pain - History obtained from History obtained from: Patient, EMS - History of Present Illness Timing - onset: How many months ago (1) Timing - duration: Months (1) Timing - details: Gradual onset, Still present, Waxing and waning Associated symptoms: Abdominal pain Contributing factors: Other (ibuprofen use) Improved by: Vomiting Similar symptoms before: Has not had sx before Recently seen: Not recently seen - Additonal information Additional information: 24-year-old female with a history of Asperger's and PTSD with anxiety has had abdominal pain for about 1 month. She has subsequently developed some diarrhea about 1 week ago and also began vomiting last night. She does take ibuprofen she sometimes takes this on an empty stomach. She has not noted any blood in her vomit or stool. She thinks her exposure to Covid is nil and she has no symptoms. 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 : None HEENT: None Psych: Anxiety, Post traumatic stress disorder, Other Musculoskeletal: None Derm: None - Past Surgical History Past Surgical History: Yes General: Other HEENT: Other - Present Medications Home Medications: Ambulatory Orders Medication Instructions Recorded Confirmed Bcp 01/18/19 Lorazepam [Ativan] 1 mg PO TID PRN #10 tablet 01/19/19 02/15/19 FLUoxetine [PROzac] 1 cap PO DAILY 02/03/19 02/15/19 Clotrimazole/Betamethasone Crm 1 applic TOP BID #15 g 06/07/19 [Lotrisone Cream] Fluconazole [Diflucan] 150 mg PO ONCE #2 tablet 06/07/19 - Allergies Allergies/Adverse Reactions: Allergies Allergy/AdvReac Type Severity Reaction Status Date / Time No Known Drug Allergies Allergy Verified 07/03/19 15:44 - Social History Does the pt smoke?: Yes Smoking Status: Current every day smoker Does the pt drink ETOH?: Yes Does the pt have substance abuse?: No - Immunizations Immunizations are current?: Yes - POLST Patient has POLST: No PD ED PE NORMAL - Vitals Vital signs reviewed: Yes (Hypertensive) - General General: Alert and oriented X 3, Well developed/nourished, Other (Anxious appearing) - HEENT HEENT: Atraumatic, PERRL, EOMI - Neck Neck: Supple, no meningeal sign, No bony TTP - Cardiac Cardiac: RRR, No murmur - Respiratory Respiratory: No respiratory distress, Clear bilaterally - Abdomen Abdomen: Normal bowel sounds, Soft, Non distended, No organomegaly, Other (Mild epigastric tenderness to deep palpation without guarding or rebound tenderness.) - Back Back: No CVA TTP, No spinal TTP - Derm Derm: Normal color, Warm and dry, No rash - Extremities Extremities: No deformity, No edema, No calf tenderness / cord - Neuro Neuro: Alert and oriented X 3, 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, No motor deficit, No sensory deficit, Normal speech Eye Opening: Spontaneous Motor: Obeys Commands Verbal: Oriented GCS Score: 15 - Psych Psych: Normal affect, Other (The patient appears anxious) Results - Vitals Vitals: Vital Signs - 24 hr 04/13/20 06:27 Temperature 36.3 C L Heart Rate 97 Respiratory 20 Rate Blood Pressure 139/99 H O2 Saturation 97 Oxygen O2 Source Room air Procedures - IVC sono (time) 0635 Bedside IVC sono: IVC measures (cm) (1.01), IVC collapsed c insp (cm) (complete), Dehydration (est 1-2 liter deficit) PD MEDICAL DECISION MAKING - ED course Complexity details: reviewed old records, reviewed results, re-evaluated patient, considered differential, d/w patient ED course: 24-year-old female with Asperger's syndrome presents to the emergency department this morning with epigastric abdominal pain and diarrhea for a week vomiting for a day and she is dehydrated on interrogation of the inferior vena cava. IV access is established patient is administered saline. She is also administered a GI cocktail consisting of viscous lidocaine 10 mL and Mylanta 30 mils. At shift change care is turned over to Dr. Willams.
[2020-04-13 07:17] LABS: BASOPHILS # (AUTO) 0.1 10^3/uL (0.0-0.1); BASOPHILS % (AUTO) 0.5 %; EOSINOPHILS # (AUTO) 0.1 10^3/uL (0.0-0.7); EOSINOPHILS % (AUTO) 0.9 %; HGB - HEMOGLOBIN 14.1 g/dL (12.0-16.0); LYMPHOCYTES # (AUTO) 4.3 10^3/uL (1.5-3.5); MEAN CORPUSCULAR HEMOGLOBIN 30.1 pg (27.0-31.0); MEAN CORPUSCULAR HGB CONC 34.1 g/dL (32.0-36.0); MEAN CORPUSCULAR VOLUME 88.5 fL (81.0-99.0); MEAN PLATELET VOLUME 9.5 fL (7.9-10.8); MONOCYTES % (AUTO) 7.9 %; NEUTROPHILS # (AUTO) 7.4 10^3/uL (1.5-6.6); PLT - PLATELET COUNT 393 10^3/uL (130-450); RED BLOOD COUNT 4.68 10^6/uL (4.20-5.40); RED CELL DISTRIBUTION WIDTH 13.5 % (12.0-15.0); WHITE BLOOD COUNT 12.9 x10^3/uL (4.8-10.8)
[2020-04-13 07:30] LABS: ALBUMIN 3.9 g/dL (3.2-5.5); BILIRUBIN,TOTAL 0.3 mg/dL (0.2-1.0); CALCIUM 8.7 mg/dL (8.5-10.3); CREATININE 0.7 mg/dL (0.4-1.0); TOTAL PROTEIN 7.8 g/dL (6.7-8.2)
[2020-04-13 08:23] LABS: BILIRUBIN,URINE NEGATIVE (NEGATIVE); CLARITY,URINE CLEAR (CLEAR); GLUCOSE, URINE (UA) NEGATIVE (NEGATIVE); KETONES,URINE (UA) NEGATIVE (NEGATIVE); LEUKOCYTE ESTERASE, URINE NEGATIVE (NEGATIVE); NITRITE,URINE NEGATIVE (NEGATIVE); OCCULT BLOOD,URINE SMALL (NEGATIVE); PROTEIN,URINE NEGATIVE (NEGATIVE); UROBILINOGEN,URINE 0.2 (NORMAL) E.U./dL (NORMAL)
[2020-04-13 08:25] LABS: HCG UR QUAL NEGATIVE
[2020-04-13 08:37] VITALS: BP 129/93
[2020-04-13 08:37] LABS: BACTERIA,URINE Few /HPF (None Seen); RBC,URINE 0-5 /HPF (0-5); SQUAMOUS EPITHELIAL CELL,UR FEW Squamous (<= Few)
== END 2020-04-13 08:58 | disposition home or self-care (01) ==
LOC: EDUNIT# → ED 06:22
DX: K29.70 Gastritis, unspecified, without bleeding (principal); E86.0 Dehydration; F84.5 Asperger's syndrome; F17.200 Nicotine dependence, unspecified, uncomplicated
CPT/HCPCS: 36415; 80053; 81001; 81025; 83690; 85025; 96360; 99283; 99284; A9270; 81003; 87086

== ENCOUNTER 2020-06-07 21:24 | Outpatient (CLI) | payer MEDICAID | END 2020-06-07 21:25 | disposition home or self-care (01) | LOC: COV 21:24 | PROVIDERS: ATTEND Family Medicine | DX: R05 Cough (principal); M79.10 Myalgia, unspecified site; R53.83 Other fatigue; R68.83 Chills (without fever); R07.0 Pain in throat; R09.81 Nasal congestion; J34.89 Other specified disorders of nose and nasal sinuses; R11.2 Nausea with vomiting, unspecified; Z20.828 Contact with and (suspected) exposure to other viral communicable diseases ==

== ENCOUNTER 2020-10-02 22:56 | Outpatient (CLI) | payer MEDICAID | END 2020-10-02 22:57 | disposition EMS.NT | LOC: EMS 22:56 | DX: F41.9 Anxiety disorder, unspecified (principal) ==

== ENCOUNTER 2021-02-10 16:59 | Outpatient (CLI) | payer MEDICAID | END 2021-02-10 17:00 | disposition home or self-care (01) | LOC: COV 16:59 | PROVIDERS: ATTEND Dentist Oral and Maxillofacial Surgery | DX: Z01.812 Encounter for preprocedural laboratory examination (principal); Z20.822 Contact with and (suspected) exposure to COVID-19 ==

== ENCOUNTER 2021-02-20 16:05 | Emergency (ER) | payer MEDICAID ==
--- NOTE | 2021-02-20 17:17 | ED Physician Documentation ---
PD HPI HEENT - Stated complaint Stated Complaint: TOOTH PX - Chief complaint Chief Complaint: Heent - History obtained from History obtained from: Patient, Family - History of Present Illness Timing - onset: How many months ago (2) Timing - duration: Months (2) Timing - details: Gradual onset, Still present, Waxing and waning Location: Tooth Improves: Medication Worsens: Temperatures, Everything Associated symptoms: Facial swelling. 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 She has been in to see the dentist at [facility] and they were unable to pull the tooth with local anesthetic and they attempted later to do this with nitrous and they were not able to do that either. They have set up time for the patient to have her tooth pulled with general anesthesia at the end of April. The patient has persistent pain and this is worse. They have made arrangements to see a local oral surgeon in [place] in 2 weeks. The patient has been taking both ibuprofen and acetaminophen in excessive quantities. 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 : None HEENT: None Psych: Anxiety, Post traumatic stress disorder, Other Musculoskeletal: None Derm: None - Past Surgical History Past Surgical History: Yes General: Other HEENT: Other - Present Medications Home Medications: Ambulatory Orders Medication Instructions Recorded Confirmed Bcp 01/18/19 Lorazepam [Ativan] 1 mg PO TID PRN #10 tablet 01/19/19 02/15/19 FLUoxetine [PROzac] 1 cap PO DAILY 02/03/19 02/15/19 Clotrimazole/Betamethasone Crm 1 applic TOP BID #15 g 06/07/19 [Lotrisone Cream] Fluconazole [Diflucan] 150 mg PO ONCE #2 tablet 06/07/19 Omeprazole 20 mg PO DAILY #30 tab 04/13/20 Ondansetron Odt [Zofran] 4 mg TL Q6H PRN #10 tablet 04/13/20 Amoxicillin 875 mg PO BID #14 tablet 02/20/21 Fluconazole [Diflucan] 1 tablet PO ONCE 1 Days #2 tablet 02/20/21 Oxycodone HCl/Acetaminophen 1 - 2 each PO Q6H PRN #14 tablet 02/20/21 [Percocet 5-325 mg Tablet] - Allergies Allergies/Adverse Reactions: Allergies Allergy/AdvReac Type Severity Reaction Status Date / Time No Known Drug Allergies Allergy Verified 02/20/21 16:17 - Social History Does the pt smoke?: Yes Smoking Status: Current every day smoker Does the pt drink ETOH?: Yes Does the pt have substance abuse?: No - Immunizations Immunizations are current?: Yes - POLST Patient has POLST: No PD ED PE NORMAL - Vitals Vital signs reviewed: Yes (normal ) - General General: Alert and oriented X 3, No acute distress, Well developed/nourished - HEENT HEENT: Atraumatic, PERRL, EOMI (there is a lower molar on the left that is sensitive to touch. there is pain to the buccal fold without fluctuance. Mild swelling over the side of the face. 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, No motor deficit, No sensory deficit, Normal speech Eye Opening: Spontaneous Motor: Obeys Commands Verbal: Oriented GCS Score: 15 - Psych Psych: Normal mood, Normal affect Results - Vitals Vitals: Vital Signs - 24 hr 02/20/21 16:07 Temperature 36.6 C Heart Rate 88 Respiratory 18 Rate Blood Pressure 132/74 H O2 Saturation 100 Oxygen O2 Source Room air PD MEDICAL DECISION MAKING - ED course Complexity details: considered differential, d/w patient, d/w family ED course: 25-year-old female with a bad left lower molar likely has a periosteal infection and she is placed onto amoxicillin we will provide some temporary pain med ication and she has follow-up with a local dentist. Departure - Departure Disposition: 01 Home, Self Care Clinical Impression: Dental abscess Condition: Stable Instructions: ED Abscess Dental Follow-Up: ZOEY PICHARDO ARNP [Primary Care Provider] - Prescriptions: Amoxicillin 875 mg PO BID #14 tablet Fluconazole [Diflucan] 1 tablet PO ONCE 1 Days #2 tablet Oxycodone HCl/Acetaminophen [Percocet 5-325 mg Tablet] 1 - 2 each PO Q6H PRN #14 tablet PRN Reason: pain
[2021-02-20 17:31] VITALS: BP 128/74
== END 2021-02-20 17:31 | disposition home or self-care (01) ==
LOC: ED 16:05
DX: K04.7 Periapical abscess without sinus (principal); F84.0 Autistic disorder; F43.10 Post-traumatic stress disorder, unspecified; F41.9 Anxiety disorder, unspecified; F17.200 Nicotine dependence, unspecified, uncomplicated
CPT/HCPCS: 99283; 99284

== ENCOUNTER 2021-02-26 22:20 | Emergency (ER) | payer MEDICAID ==
--- NOTE | 2021-02-26 22:36 | ED Physician Documentation ---
PD HPI NVD - Stated complaint Stated Complaint: VOMITING/DIARRHEA - Chief complaint Chief Complaint: Abd Pain - History obtained from History obtained from: Patient - History of Present Illness Timing - onset: Last night Timing - details: Gradual onset Pain level now: 3 Associated symptoms: Fever (Tmax 100.6), Abdominal pain, Hematochezia Contributing factors: Recent antibiotics Improved by: Laying still Worsened by: Eating, Palpation Recently seen: Emergency Dept - Additonal information Additional information: c/o increasingly frequent diarrhea since last night associated with cramping, generalized abdominal pain, fever to Tmax 100.6, nausea and vomiting, and small amount of BRBPR. She is not COVID vaccinated. She has had ongoing dental problems over past few months for which she took a course of amoxicillin in November, Clindamycin in December, Amoxicillin mid-January, and then was prescribed another course of amoxicillin last week from this ED; patient and parent say she did not take this most recent antibiotic prescription as she did not perceive any improvement with the previous antibiotics. Review of Systems Constitutional: reports: Fever, Myalgias Ears: reports: Ear pain Throat: reports: Sore throat Respiratory: reports: Reviewed and negative GI: reports: Abdominal Pain, Nausea, Vomiting, Diarrhea, Bloody / black stool. 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 : None HEENT: None Psych: Anxiety, Post traumatic stress disorder, Other Musculoskeletal: None Derm: None - Past Surgical History Past Surgical History: Yes General: Other HEENT: Other - Present Medications Home Medications: Ambulatory Orders Medication Instructions Recorded Confirmed Bcp 01/18/19 Lorazepam [Ativan] 1 mg PO TID PRN #10 tablet 01/19/19 02/15/19 FLUoxetine [PROzac] 1 cap PO DAILY 02/03/19 02/15/19 Clotrimazole/Betamethasone Crm 1 applic TOP BID #15 g 06/07/19 [Lotrisone Cream] Fluconazole [Diflucan] 150 mg PO ONCE #2 tablet 06/07/19 Omeprazole 20 mg PO DAILY #30 tab 04/13/20 Ondansetron Odt [Zofran] 4 mg TL Q6H PRN #10 tablet 04/13/20 Amoxicillin 875 mg PO BID #14 tablet 02/20/21 Fluconazole [Diflucan] 1 tablet PO ONCE 1 Days #2 tablet 02/20/21 Oxycodone HCl/Acetaminophen 1 - 2 each PO Q6H PRN #14 tablet 02/20/21 [Percocet 5-325 mg Tablet] Ondansetron Odt [Zofran] 4 mg TL Q6H PRN #10 tablet 02/27/21 Vancomycin [Vancocin] 125 mg PO QID #39 02/27/21 - Allergies Allergies/Adverse Reactions: Allergies Allergy/AdvReac Type Severity Reaction Status Date / Time No Known Drug Allergies Allergy Verified 02/26/21 22:28 - Social History Does the pt smoke?: Yes Smoking Status: Current every day smoker Does the pt drink ETOH?: Yes Does the pt have substance abuse?: No - Immunizations Immunizations are current?: Yes - POLST Patient has POLST: No PD ED PE NORMAL - Vitals Vital signs reviewed: Yes - General General: Alert and oriented X 3, No acute distress, Well developed/nourished (t) - HEENT HEENT: Other (tacky/pasty mucous membranes) - Cardiac Cardiac: RRR, No murmur - Respiratory Respiratory: No respiratory distress, Clear bilaterally - Abdomen Abdomen: Soft, Non distended, Other (mild/moderate TTP diffusely without rebound or guarding, more prominent across lower abdomen) - Back Back: No CVA TTP - Neuro Neuro: Alert and oriented X 3 Results - Vitals Vitals: Vital Signs - 24 hr 02/26/21 02/27/21 02/27/21 22:23 00:28 02:50 Temperature 36.4 C L 36.4 C L Heart Rate 106 H 82 94 Respiratory 14 18 16 Rate Blood Pressure 144/79 H 135/92 H 117/77 O2 Saturation 97 100 99 Oxygen O2 Source Room air - Labs Labs: Laboratory Tests 02/26/21 02/26/21 02/26/21 23:01 23:19 23:19 WBC 14.7 H RBC 4.48 Hgb 13.5 Hct 40.1 MCV 89.5 MCH 30.1 MCHC 33.7 RDW 12.5 Plt Count 339 MPV 9.5 Neut # (Auto) 12.2 H Lymph # (Auto) 1.5 Moody # (Auto) 0.9 Eos # (Auto) 0.1 Baso # (Auto) 0.1 Absolute Nucleated RBC 0.00 Nucleated RBC % 0.0 Sodium 134 L Potassium 3.6 Chloride 100 L Carbon Dioxide 19 L Anion Gap 15.0 H BUN 11 Creatinine 0.9 Estimated GFR (MDRD) 77 L Glucose 97 Calcium 9.2 Total Bilirubin 1.0 AST 20 ALT 20 Alkaline Phosphatase 93 Total Protein 8.6 H Albumin 4.5 Globulin 4.1 Albumin/Globulin Ratio 1.1 Lipase 40 Nasal Adenovirus (PCR) Nasal B. parapertussis DNA (PCR) Nasal Coronavir 229E PCR Nasal Coronavir HKU1 PCR Nasal Coronavir NL63 PCR Nasal Coronavir OC43 PCR Nasal Enterovir/Rhinovir PCR Nasal Influenza B PCR Nasal Influenza A PCR Nasal Parainfluen 1 PCR Nasal Parainfluen 2 PCR Nasal Parainfluen 3 PCR Nasal Parainfluen 4 PCR Nasal RSV (PCR) Nasal B.pertussis DNA PCR Nasal C.pneumoniae (PCR) Quinten Human Metapneumo PCR Nasal M.pneumoniae (PCR) Nasal SARS-CoV-2 (PCR) Stl C. diff Tox B Gene POSITIVE A* 02/26/21 23:28 WBC RBC Hgb Hct MCV MCH MCHC RDW Plt Count MPV Neut # (Auto) Lymph # (Auto) Moody # (Auto) Eos # (Auto) Baso # (Auto) Absolute Nucleated RBC Nucleated RBC % Sodium Potassium Chloride Carbon Dioxide Anion Gap BUN Creatinine Estimated GFR (MDRD) Glucose Calcium Total Bilirubin AST ALT Alkaline Phosphatase Total Protein Albumin Globulin Albumin/Globulin Ratio Lipase Nasal Adenovirus (PCR) NOT DETECTED Nasal B. parapertussis DNA (PCR) NOT DETECTED Nasal Coronavir 229E PCR NOT DETECTED Nasal Coronavir HKU1 PCR NOT DETECTED Nasal Coronavir NL63 PCR NOT DETECTED Nasal Coronavir OC43 PCR NOT DETECTED Nasal Enterovir/Rhinovir PCR NOT DETECTED Nasal Influenza B PCR NOT DETECTED Nasal Influenza A PCR NOT DETECTED Nasal Parainfluen 1 PCR NOT DETECTED Nasal Parainfluen 2 PCR NOT DETECTED Nasal Parainfluen 3 PCR NOT DETECTED Nasal Parainfluen 4 PCR NOT DETECTED Nasal RSV (PCR) NOT DETECTED Nasal B.pertussis DNA PCR NOT DETECTED Nasal C.pneumoniae (PCR) NOT DETECTED Quinten Human Metapneumo PCR NOT DETECTED Nasal M.pneumoniae (PCR) NOT DETECTED Nasal SARS-CoV-2 (PCR) NOT DETECTED Stl C. diff Tox B Gene - Rads (name of study) CT A/P with IV contrast Radiology: Prelim report reviewed, See rad report PD MEDICAL DECISION MAKING - ED course Complexity details: reviewed old records, reviewed results, re-evaluated patient, considered differential, d/w patient ED course: presents with abdominal pain, bloody stool, low-grade fevers (at home), and diarrhea. She has had three courses of antibiotics over past 3 months and tonights testing reveals mild leukocytosis, mild colitis on CT, and positive for clostridium difficilie. After 1 liter NS IV along with 4mg IV zofran, she reports significant improvement and tolerates PO without difficulty. On reevaluation she is in NAD with moist mucous membranes. She is given PO vancocin and rx for same, and rx for ondansetron. Departure - Departure Disposition: 01 Home, Self Care Clinical Impression: Clostridium difficile colitis Condition: Good Instructions: ED Gastroenteritis Bacterial Follow-Up: ZOEY PICHARDO ARNP [Primary Care Provider] - Prescriptions: Vancomycin [Vancocin] 125 mg PO QID #39 Ondansetron Odt [Zofran] 4 mg TL Q6H PRN #10 tablet PRN Reason: Nausea / Vomiting Discharge Date/Time: 02/27/21 02:51
[2021-02-26] MEDS ORDERED: SODIUM CHLORIDE 0.9% 1,000 ML IV STA (23:01)
[2021-02-26] MEDS ORDERED: ONDANSETRON 4 MG/2 ML VIAL IVP STA (23:01)
[2021-02-26 23:25] LABS: BASOPHILS # (AUTO) 0.1 10^3/uL (0.0-0.1); BASOPHILS % (AUTO) 0.3 %; EOSINOPHILS # (AUTO) 0.1 10^3/uL (0.0-0.7); EOSINOPHILS % (AUTO) 0.5 %; HCT - HEMATOCRIT 40.1 % (37.0-47.0); HGB - HEMOGLOBIN 13.5 g/dL (12.0-16.0); LYMPHOCYTES # (AUTO) 1.5 10^3/uL (1.5-3.5); LYMPHOCYTES % (AUTO) 9.9 %; MEAN CORPUSCULAR HEMOGLOBIN 30.1 pg (27.0-31.0); MEAN CORPUSCULAR HGB CONC 33.7 g/dL (32.0-36.0); MEAN CORPUSCULAR VOLUME 89.5 fL (81.0-99.0); MEAN PLATELET VOLUME 9.5 fL (7.9-10.8); MONOCYTES # (AUTO) 0.9 10^3/uL (0.0-1.0); MONOCYTES % (AUTO) 6.1 %; NEUTROPHILS # (AUTO) 12.2 10^3/uL (1.5-6.6); NEUTROPHILS % (AUTO) 82.9 %; PLT - PLATELET COUNT 339 10^3/uL (130-450); RED BLOOD COUNT 4.48 10^6/uL (4.20-5.40); RED CELL DISTRIBUTION WIDTH 12.5 % (12.0-15.0); WHITE BLOOD COUNT 14.7 x10^3/uL (4.8-10.8)
[2021-02-26 23:36] LABS: ALBUMIN 4.5 g/dL (3.2-5.5); ALBUMIN/GLOBULIN RATIO 1.1 (1.0-2.2); CALCIUM 9.2 mg/dL (8.5-10.3); CREATININE 0.9 mg/dL (0.4-1.0); POTASSIUM 3.6 mmol/L (3.5-5.0); TOTAL PROTEIN 8.6 g/dL (6.7-8.2)
[2021-02-27] MEDS ORDERED: IOPAMIDOL-300 50 ML VIAL ONE (00:03)
[2021-02-27 01:13] LABS: B. PARAPERTUSSIS- RESP PCR PAN NOT DETECTED; B. PERTUSSIS- RESP PCR PANEL NOT DETECTED; C. PNEUMONIAE- RESP PCR PANEL NOT DETECTED; CORONAVIRUS 229E-RESP PCR NOT DETECTED; CORONAVIRUS HKU1-RESP PCR NOT DETECTED; CORONAVIRUS NL63-RESP PCR NOT DETECTED; CORONAVIRUS OC43-RESP PCR NOT DETECTED; HUMAN METAPNEUMOVIRUS NOT DETECTED; INFLUENZA A- RESP PCR PANEL NOT DETECTED; INFLUENZA B - RESP PCR PANEL NOT DETECTED; M. PNEUMONIAE- RESP PCR PANEL NOT DETECTED; PARAINFLUENZA VIRUS 1 NOT DETECTED; PARAINFLUENZA VIRUS 2 NOT DETECTED; PARAINFLUENZA VIRUS 3 NOT DETECTED; PARAINFLUENZA VIRUS 4 NOT DETECTED; RHINOVIRUS/ENTEROVIRUS NOT DETECTED; RSV- RESP PCR PANEL NOT DETECTED; SARS-CoV-2 -RESP PCR PANEL NOT DETECTED
[2021-02-27] MEDS ORDERED: IOPAMIDOL-300 50 ML VIAL IVP ONE (01:29)
[2021-02-27] MEDS ORDERED: VANCOMYCIN 125 MG CAPSULE PO STA (02:27)
[2021-02-27] MEDS ORDERED: ONDANSETRON ODT 4 MG Prepack 2 TL PRN (02:29)
[2021-02-27] MEDS ORDERED: ACETAMINOPHEN 325 MG TABLET PO STA (02:30)
[2021-02-27 02:51] VITALS: BP 117/77
--- NOTE | 2021-02-27 10:50 | CT Report ---
PROCEDURE: Abdomen/Pelvis W INDICATIONS: abdominal pain, fever, tenderness CONTRAST: IV CONTRAST: Isovue 300 ml: 100 PO CONTRAST: *NO PO CONTRAST TECHNIQUE: After the administration of 100 cc Isovue-300 intravenous contrast, 5 mm thick sections acquired from the diaphragms to the symphysis. 5 mm thick coronal and sagittal reformats were acquired. For radi ation dose reduction, the following was used: automated exposure control, adjustment of mA and/or kV according to patient size. COMPARISON: None. FINDINGS: Image quality: Excellent. ABDOMEN: Lung bases: Lung bases are clear. Heart size is normal. Solid organs: Liver and spleen are normal in size and enhancement. Gallbladder normal. Biliary sys tem is non dilated. Pancreas enhances normally. No adrenal nodules. Kidneys demonstrate normal siz e and enhancement, without hydronephrosis. Peritoneum and bowel: Small bowel obstruction. Fluid layers throughout the colon. There is hyperemia and mild mucosal thickening in the sigmoid colon and rectum. No free fluid or air. Nodes and vessels: No retroperitoneal or mesenteric adenopathy by size criteria. Aorta and inferior vena cava are normal in size. Miscellaneous: No ventral hernias. PELVIS: Genitourinary: Bladder wall thickness is normal. Mildly retroverted uterus Miscellaneous: No inguinal hernias or adenopathy. Bones: No suspicious bony lesions. No vertebral body compression fractures. IMPRESSION: Mild infectious or inflammatory proctocolitis. Note: No significant discrepancy in the preliminary report. Reviewed by: Jose Martin Norwood on 02/27/2021 9:48 AM IOANA Approved by: Jose Martin Norwood on 02/27/2021 9:48 AM IOANA Station ID: [id number]
== END 2021-02-27 02:51 | disposition home or self-care (01) ==
LOC: ED 22:20
DX: A04.72 Enterocolitis due to Clostridium difficile, not specified as recurrent (principal); Z20.822 Contact with and (suspected) exposure to COVID-19; F17.200 Nicotine dependence, unspecified, uncomplicated
CPT/HCPCS: 0202U; 36415; 74177; 80053; 83690; 85025; 87493; 96374; 99284; A9270; J8499; Q9967; 81599; 87045; 87046

== ENCOUNTER 2021-02-28 08:13 | Emergency (ER) | payer MEDICAID ==
[2021-02-28 08:27] VITALS: BP 143/87
--- NOTE | 2021-02-28 09:12 | ED Physician Documentation ---
PD HPI NVD - Stated complaint Stated Complaint: BLOODY STOOL - Chief complaint Chief Complaint: Abd Pain - History obtained from History obtained from: Patient - History of Present Illness Timing - onset: Today Timing - duration: Hours Timing - details: Abrupt onset, Still present Associated symptoms: Abdominal pain, Hematochezia Contributing factors: Recent antibiotics Improved by: BM Similar symptoms before: Diagnosis (C. Diff colitis) Recently seen: Emergency Dept - Additonal information Additional information: 25-year-old female has been on a number of courses of antibiotic for a dental infection and she has now developed bloody diarrhea and abdominal cramping. She was seen in the emergency department 2 days ago and diagnosed with C. difficile colitis. Showing up both on the CAT scan and in the stool specimen. The patient has been put on vancomycin and she has a reduction in the amount of diarrhea that she has had but this morning she had a mucousy bloody stool and t his was quite unusual looking to her and her mother and she has come to the emergency department for evaluation. She states that she is otherwise feeling improved. Review of Systems Constitutional: reports: Fever (resolved) Ears: denies: Ear pain Nose: denies: Congestion Throat: denies: Sore throat Cardiac: denies: Chest pain / pressure Respiratory: denies: Cough GI: reports: Abdominal Pain, Diarrhea, Bloody / black stool. 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 HEENT: None Psych: Anxiety, Post traumatic stress disorder, Other Musculoskeletal: None Derm: None - Past Surgical History Past Surgical History: Yes General: Other HEENT: Other - Present Medications Home Medications: Ambulatory Orders Medication Instructions Recorded Confirmed Bcp 01/18/19 Lorazepam [Ativan] 1 mg PO TID PRN #10 tablet 01/19/19 02/15/19 FLUoxetine [PROzac] 1 cap PO DAILY 02/03/19 02/15/19 Clotrimazole/Betamethasone Crm 1 applic TOP BID #15 g 06/07/19 [Lotrisone Cream] Fluconazole [Diflucan] 150 mg PO ONCE #2 tablet 06/07/19 Omeprazole 20 mg PO DAILY #30 tab 04/13/20 Ondansetron Odt [Zofran] 4 mg TL Q6H PRN #10 tablet 04/13/20 Amoxicillin 875 mg PO BID #14 tablet 02/20/21 Fluconazole [Diflucan] 1 tablet PO ONCE 1 Days #2 tablet 02/20/21 Oxycodone HCl/Acetaminophen 1 - 2 each PO Q6H PRN #14 tablet 02/20/21 [Percocet 5-325 mg Tablet] Ondansetron Odt [Zofran] 4 mg TL Q6H PRN #10 tablet 02/27/21 Vancomycin [Vancocin] 125 mg PO QID #39 02/27/21 - Allergies Allergies/Adverse Reactions: Allergies Allergy/AdvReac Type Severity Reaction Status Date / Time No Known Drug Allergies Allergy Verified 02/26/21 22:28 - Social History Does the pt smoke?: Yes Smoking Status: Current every day smoker Does the pt drink ETOH?: Yes Does the pt have substance abuse?: No - Immunizations Immunizations are current?: Yes - POLST Patient has POLST: No PD ED PE NORMAL - Vitals Vital signs reviewed: Yes (hypertensive ) - General General: No acute distress, Well developed/nourished, Other (pleasant 25 y/o female in no distres) - HEENT HEENT: Atraumatic, PERRL, EOMI - Neck Neck: Supple, no meningeal sign, No bony TTP - Cardiac Cardiac: RRR, No murmur - Respiratory Respiratory: No respiratory distress, Clear bilaterally - Abdomen Abdomen: Normal bowel sounds, Soft, Non distended, No organomegaly, Other (mild general tenderness without garding) - Back Back: No CVA TTP, No spinal TTP - Derm Derm: Normal color, Warm and dry, No rash - Extremities Extremities: No deformity, No edema - Neuro Neuro: Alert and oriented X 3, pit recorder 2-12 intact, No motor deficit Eye Opening: Spontaneous Motor: Obeys Commands Verbal: Oriented GCS Score: 15 - Psych Psych: Normal mood, Normal affect Results - Vitals Vitals: Vital Signs - 24 hr 02/28/21 08:23 Temperature 36.5 C Heart Rate 95 Respiratory 16 Rate Blood Pressure 143/87 H O2 Saturation 98 Oxygen O2 Source Room air PD MEDICAL DECISION MAKING - ED course Complexity details: considered differential, d/w patient, d/w family ED course: 25-year-old high functioning autistic female with C. difficile colitis has been placed on vancomycin orally and she is improving. She has had a mucousy bowel movement this morning and this concerned the family she is brought to the emergency department she is otherwise feeling improved. I discussed the case with the mother as well and she would like to take her daughter home. We did not do any further diagnostic testing today. Departure - Departure Disposition: Home, Self Care Clinical Impression: Clostridium difficile colitis Condition: Stable Instructions: Clostridium Difficile Toxin Stool Follow-Up: ZOEY PICHARDO ARNP [Primary Care Provider] - Comments: Symptoms of C. difficile colitis or pseudomembranous colitis will include production of mucousy bloody stool and abdominal cramping. These symptoms should improve day by day. Additional hydration is recommended.
== END 2021-02-28 09:24 | disposition home or self-care (01) ==
LOC: ED 08:13
DX: A04.72 Enterocolitis due to Clostridium difficile, not specified as recurrent (principal); F17.200 Nicotine dependence, unspecified, uncomplicated
CPT/HCPCS: 99281; 99282

== ENCOUNTER 2021-03-28 11:46 | Outpatient (CLI) | payer MEDICARE, MEDICAID | END 2021-03-28 11:47 | disposition EMS.NT | LOC: EMS 11:46 | DX: Z03.89 Encounter for observation for other suspected diseases and conditions ruled out (principal) ==

== ENCOUNTER 2021-03-30 05:29 | Outpatient (CLI) | payer MEDICARE, MEDICAID | END 2021-03-30 05:30 | disposition critical access hospital (66) | LOC: EMS 05:29 | DX: R19.7 Diarrhea, unspecified (principal); R06.02 Shortness of breath; R44.8 Other symptoms and signs involving general sensations and perceptions; Z20.822 Contact with and (suspected) exposure to COVID-19 | CPT/HCPCS: A0425; A0429 ==

== ENCOUNTER 2021-03-30 05:46 | Emergency (ER) | payer MEDICARE, MEDICAID ==
--- NOTE | 2021-03-30 06:41 | ED Physician Documentation ---
History of Present Illness - Stated complaint Stated Complaint: SOA - Chief complaint Chief Complaint: Resp - History obtained from History obtained from: Patient - Additonal information Additional information: 25yF with pmh anxiety, autism, recent bout of colitis s/p antibiotics, PSH dental surgery 2 days ago, p/w acute onset SOA, throat tightness, and R arm tingling this am at about 4:30am. patient states she has day-night reversal right now and slept all day yesterday until 9pm then was awake all night. she had diarrhea while watching television and then became SOA, with chest tightness, sensation that she "was going to ", prompting her to call EMS. patient has had panic attacks in the past but felt this was much worse. Of note, her father has active covid. patient is hoping to get the Chiasma vaccine this upcoming week but would like to have covid test. denies fever, cough, nausea/vomiting. denies leg swelling or hemoptysis. Review of Systems Ten Systems: 10 systems reviewed and negative Constitutional: denies: Fever, Chills, Myalgias Cardiac: reports: Palpitations. denies: Chest pain / pressure Respiratory: reports: Dyspnea. denies: Cough GI: reports: Diarrhea. 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 : None HEENT: None Psych: Anxiety, Post traumatic stress disorder, Other Musculoskeletal: None Derm: None Other Past Medical History: autism - Past Surgical History Past Surgical History: Yes General: Other HEENT: Other - Present Medications Home Medications: Ambulatory Orders Medication Instructions Recorded Confirmed Bcp 01/18/19 Lorazepam [Ativan] 1 mg PO TID PRN #10 tablet 01/19/19 02/15/19 Clotrimazole/Betamethasone Crm 1 applic TOP BID #15 g 06/07/19 [Lotrisone Cream] Omeprazole 20 mg PO DAILY #30 tab 04/13/20 Fluconazole [Diflucan] 1 tablet PO ONCE 1 Days #2 tablet 02/20/21 Oxycodone HCl/Acetaminophen 1 - 2 each PO Q6H PRN #14 tablet 02/20/21 [Percocet 5-325 mg Tablet] Fluoxetine HCl [Prozac] 40 mg PO DAILY 03/30/21 03/30/21 busPIRone [Buspar] 15 mg PO TID 03/30/21 03/30/21 cloNIDine [Catapres] 0.1 mg PO DAILY 03/30/21 03/30/21 - Allergies Allergies/Adverse Reactions: Allergies Allergy/AdvReac Type Severity Reaction Status Date / Time No Known Drug Allergies Allergy Verified 03/30/21 05:52 - Social History Does the pt smoke?: Yes Smoking Status: Current every day smoker Does the pt drink ETOH?: Yes Does the pt have substance abuse?: No - Immunizations Immunizations are current?: Yes - POLST Patient has POLST: No PD ED PE NORMAL - Vitals Vital signs reviewed: Yes - General General: Alert and oriented X 3, No acute distress, Well developed/nourished - HEENT HEENT: Atraumatic, PERRL, EOMI, Moist mucous membranes, Pharynx benign - Neck Neck: Supple, no meningeal sign - Cardiac Cardiac: RRR, No murmur - Respiratory Respiratory: No respiratory distress, Clear bilaterally - Abdomen Abdomen: Non tender, Non distended - Derm Derm: Normal color, Warm and dry - Extremities Extremities: No deformity - Neuro Neuro: Alert and oriented X 3 - Psych Psych: Other (mild pressured speech. anxious affect) Results - Vitals Vitals: Vital Signs - 24 hr 03/30/21 03/30/21 03/30/21 05:52 05:55 06:20 Temperature 36.4 C L 36.4 C L Heart Rate 89 89 88 Respiratory 18 18 16 Rate Blood Pressure 92/52 L 92/52 L 102/61 O2 Saturation 98 98 98 Oxygen O2 Source Room air - EKG (time done) 0642 Rate: Rate (enter#) (97) Rhythm: NSR Briggs: Normal Intervals: Normal DC QRS: Normal Ischemia: Normal ST segments PD MEDICAL DECISION MAKING - ED course ED course: 25yF presents with acute SOA after having diarrhea this morning. Symptoms have resolved here in the emergency department though she is endorsing mild headache but declining tylenol. ekg noncontributory. covid test sent upon request. low suspicion for PE at this time given normal vitals, physical exam, and resolution of symptoms after acute episode. strict return precautions discussed. patient will f/u with her primary doctor. Departure - Departure Disposition: 01 Home, Self Care Clinical Impression: Diarrhea, Shortness of breath Condition: Good Instructions: ED Dyspnea Shortness of Breath Comments: You were seen in the emergency department for diarrhea and shortness of breath. Your vital signs, physical exam, and ekg were normal. A covid test was sent which will result in 2-3 days. You should quarantine at home until the results are back. Please return to the emergency department if you cough up blood, have leg swelling, experience new or worsening symptoms or have other concerns. Plan to f/u with your primary doctor and oral surgeon.
[2021-03-30 07:00] VITALS: BP 102/57
== END 2021-03-30 07:43 | disposition home or self-care (01) ==
LOC: EDUNIT# → EDBD → ED 05:46
DX: R06.02 Shortness of breath (principal); R19.7 Diarrhea, unspecified; R51.9 Headache, unspecified; Z20.822 Contact with and (suspected) exposure to COVID-19; F41.9 Anxiety disorder, unspecified; F84.0 Autistic disorder; Z98.818 Other dental procedure status; F17.200 Nicotine dependence, unspecified, uncomplicated
CPT/HCPCS: 93005; 99283; 99284; U0004

== ENCOUNTER 2021-03-31 20:28 | Emergency (ER) | payer MEDICARE, MEDICAID ==
[2021-03-31 20:43] VITALS: BP 104/64
--- NOTE | 2021-03-31 21:14 | ED Physician Documentation ---
History of Present Illness - Stated complaint Stated Complaint: DIARRHEA - Chief complaint Chief Complaint: Abd Pain - History obtained from History obtained from: Patient - Additonal information Additional information: 25yF with [facility] cdiff presents sent in by pmd for c diff testing. patient had 11 bouts of diarrhea today, and has had abdominal cramping and diarrhea prior to this. nonbloody at present, but did have blood earlier in the week. denies nausea, fever, urinary sx. father has active covid-19 and she is unvaccinated. denies soa or cough. covid test pending. Review of Systems Ten Systems: 10 systems reviewed and negative Constitutional: denies: Fever, Chills Cardiac: denies: Chest pain / pressure Respiratory: denies: Dyspnea, Cough GI: reports: Abdominal Pain, Diarrhea. 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 : None HEENT: None Psych: Anxiety, Post traumatic stress disorder, Other Musculoskeletal: None Derm: None - Past Surgical History Past Surgical History: Yes General: Other HEENT: Other - Present Medications Home Medications: Ambulatory Orders Medication Instructions Recorded Confirmed Bcp 01/18/19 Fluoxetine HCl [Prozac] 40 mg PO DAILY 03/30/21 03/31/21 busPIRone [Buspar] 15 mg PO TID 03/30/21 03/31/21 cloNIDine [Catapres] 0.1 mg PO DAILY 03/30/21 03/31/21 Omeprazole 20 mg PO DAILY PRN 03/31/21 03/31/21 QUEtiapine [SEROquel] 25 mg PO BID 03/31/21 03/31/21 - Allergies Allergies/Adverse Reactions: Allergies Allergy/AdvReac Type Severity Reaction Status Date / Time acetaminophen [From Percocet] AdvReac Respiratory Verified 03/31/21 20:43 diazepam [From Valium] AdvReac Hallucinati Verified 03/31/21 20:43 ons oxycodone [From Percocet] AdvReac Respiratory Verified 03/31/21 20:43 zolpidem [From Ambien] AdvReac Hallucinati Verified 03/31/21 20:43 ons - Social History Does the pt smoke?: Yes Smoking Status: Current every day smoker Does the pt drink ETOH?: Yes Does the pt have substance abuse?: No - Immunizations Immunizations are current?: Yes - POLST Patient has POLST: No PD ED PE NORMAL - Vitals Vital signs reviewed: Yes - General General: Alert and oriented X 3, No acute distress, Well developed/nourished - HEENT HEENT: Atraumatic, PERRL, EOMI - Neck Neck: Supple, no meningeal sign - Cardiac Cardiac: RRR - Respiratory Respiratory: No respiratory distress, Clear bilaterally - Abdomen Abdomen: Non tender, Non distended - Derm Derm: Normal color, Warm and dry - Extremities Extremities: No deformity - Neuro Neuro: Alert and oriented X 3 - Psych Psych: Normal mood, Normal affect Results - Vitals Vitals: Vital Signs - 24 hr 03/31/21 20:38 Temperature 36.4 C L Heart Rate 86 Respiratory 16 Rate Blood Pressure 104/64 O2 Saturation 97 Oxygen O2 Source Room air PD MEDICAL DECISION MAKING - ED course ED course: Well appearing 25-year-old woman presents sent in by her physician for c diff test, however the stool sample she provided was too solid to run. DDX includes covid-19 given she is unvaccinated and her father has active covid. nasal swab pending. return precautions discussed. plan to quarantine until result. symptomatic care discussed. Departure - Departure Disposition: 01 Home, Self Care Clinical Impression: Diarrhea, Abdominal cramping Condition: Good Instructions: ED Diarrhea Viral Comments: You were seen in the emergency department for diarrhea and abdominal pain. If you have a liquid stool then please save the sample so it can be tested for c diff. Please quarantine at home until your covid result comes back. return to the emergency department if you have new or worsening symptoms or other concerns. Discharge Date/Time: 03/31/21 22:22
== END 2021-03-31 22:22 | disposition home or self-care (01) ==
LOC: ED 20:28
DX: R19.7 Diarrhea, unspecified (principal); R10.9 Unspecified abdominal pain; Z87.19 Personal history of other diseases of the digestive system; F17.200 Nicotine dependence, unspecified, uncomplicated
CPT/HCPCS: 87493; 99283

== ENCOUNTER 2021-08-09 19:37 | Outpatient (CLI) | payer MEDICARE, MEDICAID | END 2021-08-09 19:38 | disposition critical access hospital (66) | LOC: EMS 19:37 | DX: K30 Functional dyspepsia (principal); R11.0 Nausea | CPT/HCPCS: A0425; A0429 ==

== ENCOUNTER 2021-08-09 19:54 | Emergency (ER) | payer MEDICARE, MEDICAID ==
[2021-08-09 20:56] LABS: BASOPHILS % (AUTO) 0.5 %; EOSINOPHILS # (AUTO) 0.2 10^3/uL (0.0-0.7); EOSINOPHILS % (AUTO) 2.1 %; HCT - HEMATOCRIT 40.7 % (37.0-47.0); HGB - HEMOGLOBIN 13.3 g/dL (12.0-16.0); LYMPHOCYTES # (AUTO) 3.2 10^3/uL (1.5-3.5); LYMPHOCYTES % (AUTO) 39.6 %; MEAN CORPUSCULAR HEMOGLOBIN 27.5 pg (27.0-31.0); MEAN CORPUSCULAR HGB CONC 32.7 g/dL (32.0-36.0); MEAN CORPUSCULAR VOLUME 84.1 fL (81.0-99.0); MEAN PLATELET VOLUME 9.2 fL (7.9-10.8); MONOCYTES # (AUTO) 0.5 10^3/uL (0.0-1.0); MONOCYTES % (AUTO) 6.4 %; NEUTROPHILS # (AUTO) 4.1 10^3/uL (1.5-6.6); PLT - PLATELET COUNT 390 10^3/uL (130-450); RED BLOOD COUNT 4.84 10^6/uL (4.20-5.40); RED CELL DISTRIBUTION WIDTH 13.6 % (12.0-15.0); WHITE BLOOD COUNT 8.1 x10^3/uL (4.8-10.8)
[2021-08-09 21:17] LABS: ALBUMIN 3.5 g/dL (3.2-5.5); ALBUMIN/GLOBULIN RATIO 0.9 (1.0-2.2); BILIRUBIN,TOTAL 0.2 mg/dL (0.2-1.0); CALCIUM 8.1 mg/dL (8.5-10.3); CREATININE 0.8 mg/dL (0.4-1.0); POTASSIUM 3.7 mmol/L (3.5-5.0); TOTAL PROTEIN 7.3 g/dL (6.7-8.2)
--- NOTE | 2021-08-09 22:42 | ED Physician Documentation ---
PD HPI ABD PAIN - Stated complaint Stated Complaint: HBD/UPSET STOMACH - Chief complaint Chief Complaint: Abd Pain - History obtained from History obtained from: Patient - History of Present Illness Timing - onset: How many days ago (1) Timing - duration: Days (1) Timing - details: Gradual onset Pain level max: 7 Pain level now: 7 Quality: Aching, Pain Radiation: No: Chest, , Lower back, Left flank, Left shoulder, Right flank, Right shoulder, Upper back Improved by: Laying still Worsened by: Palpation Associated symptoms: Nausea. No: Fever, Vomiting, Hematemesis, Diarrhea, Constipation, Melena, Hematochezia, Dysuria - Additional information Additional information: Patient is a 25-year-old female who presents to the emergency department complaining of left lower quadrant abdominal pain. She states that she had a colonoscopy yesterday at [facility] in [place]. She states that they could only complete about half of the colonoscopy. She states that she had reactions to the anesthesia. She states that today she has developed left lower quadrant abdominal pain that radiates to her epigastrium. She states that she has been drinking Peyman's hard lemonade today. Nothing makes the pain better or worse. She had the colonoscopy performed for rectal bleeding. 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 HEENT: None Psych: Anxiety, Post traumatic stress disorder, Other Musculoskeletal: None Derm: None - Past Surgical History Past Surgical History: Yes General: Other HEENT: Other - Present Medications Home Medications: Ambulatory Orders Medication Instructions Recorded Confirmed Bcp 01/18/19 Fluoxetine HCl [Prozac] 40 mg PO DAILY 03/30/21 03/31/21 busPIRone [Buspar] 15 mg PO TID 03/30/21 03/31/21 cloNIDine [Catapres] 0.1 mg PO DAILY 03/30/21 03/31/21 Omeprazole 20 mg PO DAILY PRN 03/31/21 03/31/21 QUEtiapine [SEROquel] 25 mg PO BID 03/31/21 03/31/21 - Allergies Allergies/Adverse Reactions: Allergies Allergy/AdvReac Type Severity Reaction Status Date / Time acetaminophen [From Percocet] AdvReac Respiratory Verified 08/09/21 19:57 diazepam [From Valium] AdvReac Hallucinati Verified 08/09/21 19:57 ons oxycodone [From Percocet] AdvReac Respiratory Verified 08/09/21 19:57 zolpidem [From Ambien] AdvReac Hallucinati Verified 08/09/21 19:57 ons - Living Situation Living Situation: reports: With family Living Arrangement: reports: At home - Social History Does the pt smoke?: Yes Smoking Status: Current every day smoker Does the pt drink ETOH?: Yes Does the pt have substance abuse?: No - Family History Family history: reports: Non contributory - Immunizations Immunizations are current?: Yes - POLST Patient has POLST: No PD ED PE NORMAL - Vitals Vital signs reviewed: Yes - General General: Alert and oriented X 3, No acute distress - HEENT HEENT: Moist mucous membranes - Neck Neck: Supple, no meningeal sign - Cardiac Cardiac: RRR, Strong equal pulses - Respiratory Respiratory: No respiratory distress, Clear bilaterally - Abdomen Abdomen: Soft, Non distended, Other (Tenderness to palpation left lower quadrant without peritoneal signs.) - Back Back: No spinal TTP - Derm Derm: Warm and dry - Extremities Extremities: No edema - Neuro Neuro: Alert and oriented X 3 - Psych Psych: Normal mood, Normal affect Results - Vitals Vitals: Vital Signs - 24 hr 08/09/21 08/09/21 08/09/21 19:57 20:06 22:06 Temperature 36.4 C L Heart Rate 87 91 95 Respiratory 15 15 15 Rate Blood Pressure 125/84 H 123/82 H 130/90 H O2 Saturation 97 98 99 Oxygen O2 Source Room air - Labs Labs: Laboratory Tests 08/09/21 08/09/21 08/09/21 20:52 20:52 20:52 WBC 8.1 RBC 4.84 Hgb 13.3 Hct 40.7 MCV 84.1 MCH 27.5 MCHC 32.7 RDW 13.6 Plt Count 390 MPV 9.2 Neut # (Auto) 4.1 Lymph # (Auto) 3.2 [place] # (Auto) 0.5 Eos # (Auto) 0.2 Baso # (Auto) 0.0 Absolute Nucleated RBC 0.00 Nucleated RBC % 0.0 Sodium 137 Potassium 3.7 Chloride 105 Carbon Dioxide 23 Anion Gap 9.0 BUN 6 Creatinine 0.8 Estimated GFR (MDRD) 88 L Glucose 104 H Calcium 8.1 L Total Bilirubin 0.2 AST 19 ALT 16 Alkaline Phosphatase 107 Total Protein 7.3 Albumin 3.5 Globulin 3.8 Albumin/Globulin Ratio 0.9 L Lipase 53 H Ethyl Alcohol 139.9 PD MEDICAL DECISION MAKING - ED course Complexity details: reviewed results, re-evaluated patient, considered differential, d/w patient ED course: Patient is a 25-year-old female with left lower quadrant and epigastric abdominal pain after colonoscopy yesterday and after alcohol use today. The CT s canner here is down for repairs and was supposed to be up by IR approximately 10 PM, however they have now revised the estimate to after 1 AM. Therefore we will send the patient to [facility] for an outpatient CT scan to rule out perforation. The patient will be signed out to Dr. Johnson, see her note for further care of this patient. If the CT scan is negative, the patient will likely be able to be discharged home. This document was made in part using voice recognition software. While efforts are made to proofread this document, sound alike and grammatical errors may occur. Departure - Departure Clinical Impression: Abdominal pain Qualifiers: Abdominal location: left lower quadrant Qualified Code(s): R10.32 - Left lower quadrant pain Alcohol intoxication Qualifiers: Complication of substance-induced condition: uncomplicated Qualified Code(s): F10.920 - Alcohol use, unspecified with intoxication, uncomplicated Condition: Stable
[2021-08-10 02:10] LABS: BILIRUBIN,URINE NEGATIVE (NEGATIVE); GLUCOSE, URINE (UA) NEGATIVE (NEGATIVE); KETONES,URINE (UA) NEGATIVE (NEGATIVE); LEUKOCYTE ESTERASE, URINE TRACE (NEGATIVE); NITRITE,URINE NEGATIVE (NEGATIVE); OCCULT BLOOD,URINE SMALL (NEGATIVE); PH,URINE 5.5 PH (5.0-7.5); PROTEIN,URINE NEGATIVE (NEGATIVE); UROBILINOGEN,URINE 0.2 (NORMAL) E.U./dL (NORMAL)
[2021-08-10 02:11] LABS: CLARITY,URINE CLEAR (CLEAR)
[2021-08-10 02:18] LABS: BACTERIA,URINE Few /HPF (None Seen); RBC,URINE 0-5 /HPF (0-5); SQUAMOUS EPITHELIAL CELL,UR MANY Squamous (<= Few)
[2021-08-10 03:02] VITALS: BP 120/75
[2021-08-10] MEDS ORDERED: IBUPROFEN 400 MG TABLET PO STA (04:35)
--- NOTE | 2021-08-10 04:35 | ED Physician Documentation ---
ED Addendum - Addendum Addendum: 08/10/21 04:34 Patient now awake, ambulating normally, tolerating po, clinically sober. abdominal pain resolved. CT unremarkable. plan to dc home with return precautions and outpatient f/u with pmd. Disposition home. Condition good Impression 1. alcohol abuse 2. abdominal pain
== END 2021-08-10 05:35 | disposition home or self-care (01) ==
LOC: EDUNIT# → ED 19:54
DX: R10.32 Left lower quadrant pain (principal); F10.10 Alcohol abuse, uncomplicated; Y90.6 Blood alcohol level of 120-199 mg/100 ml; F17.200 Nicotine dependence, unspecified, uncomplicated
CPT/HCPCS: 36415; 80053; 81001; 83690; 85025; 99282; 99284; A9270; G0480; 80320; 81003; 87086

== ENCOUNTER 2021-08-09 23:16 | Outpatient (CLI) | payer MEDICARE, MEDICAID | END 2021-08-09 23:17 | disposition short-term general hospital (02) | LOC: EMS 23:16 | PROVIDERS: ATTEND Emergency Medicine | DX: R10.32 Left lower quadrant pain (principal) | CPT/HCPCS: A0425; A0428 ==

== ENCOUNTER 2021-08-10 00:23 | Outpatient (CLI) | payer MEDICARE, MEDICAID | END 2021-08-10 00:24 | disposition short-term general hospital (02) | LOC: EMS 00:23 | PROVIDERS: ATTEND Emergency Medicine | DX: R10.32 Left lower quadrant pain (principal) | CPT/HCPCS: A0425; A0428 ==

== ENCOUNTER 2022-03-04 12:12 | Outpatient (CLI) | payer MEDICARE, MEDICAID | END 2022-03-04 12:13 | disposition EMS.NT | LOC: EMS 12:12 | DX: R10.9 Unspecified abdominal pain (principal) ==

== ENCOUNTER 2022-05-09 12:02 | Emergency (ER) | payer MEDICARE, MEDICAID ==
--- NOTE | 2022-05-09 14:04 | ED Physician Documentation ---
PD HPI NVD - Stated complaint Stated Complaint: BLOOD IN STOOL - Chief complaint Chief Complaint: Abd Pain - History obtained from History obtained from: Patient - History of Present Illness Timing - onset: How many days ago (few days of mucous "jelly like" stool with blood tinges and causing burning feeling at rectum. Lower abd cramping. Has had this in episodes in the past 2 years with initially C.Diff. and recurrence. These were treated and cleared per patient. Seen by GI for colonoscopy but had sz, so not completed.) Timing - duration: Days (current episode of symptoms for past several days.) Timing - details: Gradual onset, Still present Associated symptoms: Abdominal pain (lower abd cramping), Hematochezia (small streaks of blood with mucous. She took picture of toilet bowl and shows it to me.). No: Fever, Melena, Near syncope / syncope, Loss of appetite Review of Systems Constitutional: denies: Fever, Chills, Myalgias Nose: denies: Rhinorrhea / runny nose, Congestion Throat: denies: Sore throat Respiratory: denies: Cough GI: reports: Abdominal Pain, Nausea, Diarrhea. 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 Estradiol 1 tab PO DAILY 08/10/21 08/10/21 [Nortrel 1-35 28 Tablet] Dicyclomine [Bentyl] 10 mg PO BID PRN #20 cap 05/09/22 L.acid/L.casei/B.bif/B.bethany/Fos 1 each PO BID 15 Days #30 cap 05/09/22 [Probiotic Blend Capsule] Loperamide HCl [Imodium A-D] 2 mg PO Q6H PRN #20 tablet 05/09/22 - Allergies Allergies/Adverse Reactions: Allergies Allergy/AdvReac Type Severity Reaction Status Date / Time acetaminophen [From Percocet] AdvReac Respiratory Verified 05/09/22 12:14 diazepam [From Valium] AdvReac Hallucinati Verified 05/09/22 12:14 ons oxycodone [From Percocet] AdvReac Respiratory Verified 05/09/22 12:14 zolpidem [From Ambien] AdvReac Hallucinati Verified 05/09/22 12:14 ons - Social History Does the pt smoke?: Yes Smoking Status: Current every day smoker Does the pt drink ETOH?: Yes Does the pt have substance abuse?: No - Immunizations Immunizations are current?: Yes - POLST Patient has POLST: No PD ED PE NORMAL - Vitals Vital signs reviewed: Yes - General General: Alert and oriented X 3, No acute distress (mostly anxious and not in pain perse. ), Well developed/nourished - Neck Neck: Supple, no meningeal sign, No adenopathy - Cardiac Cardiac: RRR, No murmur - Respiratory Respiratory: Clear bilaterally - Abdomen Abdomen: Normal bowel sounds, Soft, Non distended, No organomegaly, Other (mild tender lower abd without guarding nor percussion tenderness. ) - Female Female : Deferred - Rectal Rectal: Deferred - Derm Derm: Normal color, Warm and dry - Extremities Extremities: Normal ROM s pain - Neuro Neuro: Alert and oriented X 3, Normal speech Results - Vitals Vitals: Vital Signs - 24 hr 05/09/22 05/09/22 05/09/22 12:09 14:24 16:00 Temperature 37.2 C Heart Rate 54 L 102 H 86 Respiratory 18 19 16 Rate Blood Pressure 150/103 H 154/112 H 150/97 H O2 Saturation 94 99 99 Oxygen O2 Source Room air - Labs Labs: Laboratory Tests 05/09/22 05/09/22 05/09/22 12:26 12:26 15:05 WBC 15.9 H RBC 4.85 Hgb 13.7 Hct 41.5 MCV 85.6 MCH 28.2 MCHC 33.0 RDW 12.3 Plt Count 427 MPV 9.6 Neut # (Auto) 10.5 H Lymph # (Auto) 4.4 H [place] # (Auto) 0.8 Eos # (Auto) 0.1 Baso # (Auto) 0.0 Absolute Nucleated RBC 0.00 Nucleated RBC % 0.0 Sodium Potassium Chloride Carbon Dioxide Anion Gap BUN Creatinine Estimated GFR (MDRD) Glucose Calcium Total Bilirubin AST ALT Alkaline Phosphatase C-Reactive Protein Total Protein Albumin Globulin Albumin/Globulin Ratio Lipase Urine Color Urine Clarity Urine pH Ur Specific [place] Urine Protein Urine Glucose (UA) Urine Ketones Urine Occult Blood Urine Nitrite Urine Bilirubin Urine Urobilinogen Ur Leukocyte Esterase Urine RBC Urine WBC Ur Squamous Epith Cells Urine Bacteria Urine Mucus Ur Microscopic Review Urine Culture Comments Urine HCG, Qual Stool Leukocytes, Qual NEGATIVE Stl C. diff Tox B Gene NEGATIVE 05/09/22 05/09/22 15:05 15:21 WBC RBC Hgb Hct MCV MCH MCHC RDW Plt Count MPV Neut # (Auto) Lymph # (Auto) [place] # (Auto) Eos # (Auto) Baso # (Auto) Absolute Nucleated RBC Nucleated RBC % Sodium 136 Potassium 3.5 Chloride 105 Carbon Dioxide 20 L Anion Gap 11.0 BUN 8 Creatinine 0.8 Estimated GFR (MDRD) 87 L Glucose 94 Calcium 9.0 Total Bilirubin 0.5 AST 18 ALT 17 Alkaline Phosphatase 119 C-Reactive Protein 1.5 H Total Protein 8.1 Albumin 4.0 Globulin 4.1 Albumin/Globulin Ratio 1.0 Lipase 44 Urine Color YELLOW Urine Clarity HAZY Urine pH 6.0 Ur Specific [place] >=1.030 H Urine Protein NEGATIVE Urine Glucose (UA) NEGATIVE Urine Ketones NEGATIVE Urine Occult Blood MODERATE H Urine Nitrite NEGATIVE Urine Bilirubin NEGATIVE Urine Urobilinogen 0.2 (NORMAL) Ur Leukocyte Esterase TRACE H Urine RBC 6-10 H Urine WBC 11-25 H Ur Squamous Epith Cells MOD Squamous H Urine Bacteria Moderate H Urine Mucus Few Strands Ur Microscopic Review INDICATED Urine Culture Comments NOT INDICATED Urine HCG, Qual NEGATIVE Stool Leukocytes, Qual Stl C. diff Tox B Gene PD MEDICAL DECISION MAKING - ED course Complexity details: reviewed results, considered differential (colitis sounding symptoms. prior c.Diff so will test for that and stool culture. Also consider crohns/UC, as did not have complete colonscopy for diagnosis in the past. consider malabsoprtion as well. ), d/w patient Departure - Departure Disposition: 01 Home, Self Care Clinical Impression: Abdominal cramping Diarrhea Qualifiers: Diarrhea type: unspecified type Qualified Code(s): R19.7 - Diarrhea, unspecified Condition: Stable Record reviewed to determine appropriate education?: Yes Prescriptions: Dicyclomine [Bentyl] 10 mg PO BID PRN #20 cap PRN Reason: Abdominal Pain Loperamide HCl [Imodium A-D] 2 mg PO Q6H PRN #20 tablet PRN Reason: Diarrhea L.acid/L.casei/B.bif/B.bethany/Fos [Probiotic Blend Capsule] 1 each PO BID 15 Days #30 cap Comments: We are doing some stool culture and tests to look for signs of infection such as C. difficile or inflammatory causes such as colitis. These tests are still pending and should result either later today or within the next 1 to 2 days. We can try to call you with the positive test. Follow-up with your primary care regarding recheck and reevaluate in a few days, call for an appointment. For now we will treat with medication to help with the diarrhea and cramps. This will include a probiotic medication twice daily as well as medication for antidiarrhea called Imodium. You can also use dicyclomine which is an antispasmodic for the intestine to reduce cramping. This can be taken twice daily if needed. Can also use Tylenol every 4-6 hours if needed for pains. Again the stool study results should come back in a day or so and will help decide if there is an infection or inflammatory process that we can target better. I sent your prescriptions to [email or web address] in [place]. Discharge Date/Time: 05/09/22 16:32
[2022-05-09] MEDS ORDERED: LOPERAMIDE 2 MG CAPSULE PO STA (14:56)
[2022-05-09] MEDS ORDERED: ACETAMINOPHEN 325 MG TABLET PO STA (14:56)
[2022-05-09 15:18] LABS: BASOPHILS % (AUTO) 0.3 %; EOSINOPHILS # (AUTO) 0.1 10^3/uL (0.0-0.7); EOSINOPHILS % (AUTO) 0.8 %; HCT - HEMATOCRIT 41.5 % (37.0-47.0); HGB - HEMOGLOBIN 13.7 g/dL (12.0-16.0); LYMPHOCYTES # (AUTO) 4.4 10^3/uL (1.5-3.5); LYMPHOCYTES % (AUTO) 27.5 %; MEAN CORPUSCULAR HEMOGLOBIN 28.2 pg (27.0-31.0); MEAN CORPUSCULAR VOLUME 85.6 fL (81.0-99.0); MEAN PLATELET VOLUME 9.6 fL (7.9-10.8); MONOCYTES # (AUTO) 0.8 10^3/uL (0.0-1.0); MONOCYTES % (AUTO) 5.2 %; NEUTROPHILS # (AUTO) 10.5 10^3/uL (1.5-6.6); NEUTROPHILS % (AUTO) 65.9 %; PLT - PLATELET COUNT 427 10^3/uL (130-450); RED BLOOD COUNT 4.85 10^6/uL (4.20-5.40); RED CELL DISTRIBUTION WIDTH 12.3 % (12.0-15.0); WHITE BLOOD COUNT 15.9 x10^3/uL (4.8-10.8)
[2022-05-09 15:36] LABS: BILIRUBIN,TOTAL 0.5 mg/dL (0.2-1.0); CREATININE 0.8 mg/dL (0.4-1.0); CRP - C-REACTIVE PROTEIN 1.5 mg/dL (0-1.0); POTASSIUM 3.5 mmol/L (3.5-5.0); TOTAL PROTEIN 8.1 g/dL (6.7-8.2)
[2022-05-09 15:40] LABS: BILIRUBIN,URINE NEGATIVE (NEGATIVE); GLUCOSE, URINE (UA) NEGATIVE (NEGATIVE); KETONES,URINE (UA) NEGATIVE (NEGATIVE); LEUKOCYTE ESTERASE, URINE TRACE (NEGATIVE); NITRITE,URINE NEGATIVE (NEGATIVE); OCCULT BLOOD,URINE MODERATE (NEGATIVE); PROTEIN,URINE NEGATIVE (NEGATIVE); UROBILINOGEN,URINE 0.2 (NORMAL) E.U./dL (NORMAL)
[2022-05-09 15:43] LABS: CLARITY,URINE HAZY (CLEAR); HCG UR QUAL NEGATIVE
[2022-05-09 15:50] LABS: BACTERIA,URINE Moderate /HPF (None Seen); MUCUS,URINE Few Strands; SQUAMOUS EPITHELIAL CELL,UR MOD Squamous (<= Few)
[2022-05-09 16:20] VITALS: BP 150/97
== END 2022-05-09 16:32 | disposition home or self-care (01) ==
LOC: ED 12:02
DX: R10.9 Unspecified abdominal pain (principal); R19.7 Diarrhea, unspecified; F17.200 Nicotine dependence, unspecified, uncomplicated
CPT/HCPCS: 36415; 80053; 81001; 81025; 82705; 83630; 83690; 83993; 85025; 86140; 87045; 87046; 87427; 87493; 99283; 99284; A9270; 81003; 87086

== ENCOUNTER 2022-05-25 09:46 | Outpatient (CLI) | payer MEDICARE, MEDICAID | END 2022-05-25 09:47 | disposition critical access hospital (66) | LOC: EMS 09:46 | DX: R10.11 Right upper quadrant pain (principal); R11.10 Vomiting, unspecified; R19.7 Diarrhea, unspecified | CPT/HCPCS: A0425; A0429 ==

== ENCOUNTER 2022-05-25 10:03 | Emergency (ER) | payer MEDICARE, MEDICAID ==
[2022-05-25 10:48] LABS: BASOPHILS # (AUTO) 0.1 10^3/uL (0.0-0.1); BASOPHILS % (AUTO) 0.5 %; EOSINOPHILS # (AUTO) 0.1 10^3/uL (0.0-0.7); EOSINOPHILS % (AUTO) 1.2 %; HCT - HEMATOCRIT 39.5 % (37.0-47.0); HGB - HEMOGLOBIN 13.1 g/dL (12.0-16.0); LYMPHOCYTES # (AUTO) 3.5 10^3/uL (1.5-3.5); LYMPHOCYTES % (AUTO) 32.2 %; MEAN CORPUSCULAR HEMOGLOBIN 28.6 pg (27.0-31.0); MEAN CORPUSCULAR HGB CONC 33.2 g/dL (32.0-36.0); MEAN CORPUSCULAR VOLUME 86.2 fL (81.0-99.0); MEAN PLATELET VOLUME 9.7 fL (7.9-10.8); MONOCYTES # (AUTO) 0.7 10^3/uL (0.0-1.0); MONOCYTES % (AUTO) 6.5 %; NEUTROPHILS # (AUTO) 6.5 10^3/uL (1.5-6.6); NEUTROPHILS % (AUTO) 59.2 %; PLT - PLATELET COUNT 395 10^3/uL (130-450); RED BLOOD COUNT 4.58 10^6/uL (4.20-5.40); RED CELL DISTRIBUTION WIDTH 12.4 % (12.0-15.0); WHITE BLOOD COUNT 10.9 x10^3/uL (4.8-10.8)
[2022-05-25 11:02] LABS: ALBUMIN 3.8 g/dL (3.2-5.5); BILIRUBIN,TOTAL 0.3 mg/dL (0.2-1.0); CALCIUM 8.9 mg/dL (8.5-10.3); CREATININE 0.7 mg/dL (0.4-1.0); POTASSIUM 3.6 mmol/L (3.5-5.0); TOTAL PROTEIN 7.7 g/dL (6.7-8.2)
[2022-05-25] MEDS ORDERED: DICYCLOMINE 10 MG CAPSULE PO STA (11:13)
[2022-05-25] MEDS ORDERED: PANTOPRAZOLE 40 MG VIAL IVP STA (11:14)
[2022-05-25] MEDS ORDERED: KETOROLAC 30 MG/ML VIAL IVP STA (11:14)
[2022-05-25] MEDS ORDERED: ONDANSETRON 4 MG/2 ML VIAL IVP STA (11:14)
--- NOTE | 2022-05-25 11:15 | ED Physician Documentation ---
History of Present Illness - Stated complaint Stated Complaint: ABD PX - Chief complaint Chief Complaint: Abd Pain - History obtained from History obtained from: Patient - History of Present Illness Pain level max: 7 Pain level now: 6 - Additonal information Additional information: Patient is a 26-year-old female who has had ongoing abdominal issues for the past several months. No clear cause found. She states that this pain started a few days ago and is continued despite ibuprofen. Worse with eating and drinking. Nothing makes it better. Had vomiting x1. Has had nausea as well. No fevers. Cough, congestion. She had a colonoscopy several months ago but was limited, it sounds like the patient may have had a seizure during the colonoscopy. Review of Systems Constitutional: denies: Fever, Chills Respiratory: denies: Cough GI: reports: Nausea, Vomiting. 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 Estradiol 1 tab PO DAILY 08/10/21 08/10/21 [Nortrel 1-35 28 Tablet] Dicyclomine [Bentyl] 10 mg PO BID PRN #20 cap 05/09/22 L.acid/L.casei/B.bif/B.bethany/Fos 1 each PO BID 15 Days #30 cap 05/09/22 [Probiotic Blend Capsule] Loperamide HCl [Imodium A-D] 2 mg PO Q6H PRN #20 tablet 05/09/22 - Allergies Allergies/Adverse Reactions: Allergies Allergy/AdvReac Type Severity Reaction Status Date / Time acetaminophen [From Percocet] AdvReac Respiratory Verified 05/25/22 10:10 diazepam [From Valium] AdvReac Hallucinati Verified 05/25/22 10:10 ons oxycodone [From Percocet] AdvReac Respiratory Verified 05/25/22 10:10 zolpidem [From Ambien] AdvReac Hallucinati Verified 05/25/22 10:10 ons - Social History Does the pt smoke?: Yes Smoking Status: Current every day smoker Does the pt drink ETOH?: Yes Does the pt have substance abuse?: No - Immunizations Immunizations are current?: Yes - POLST Patient has POLST: No PD ED PE NORMAL - Vitals Vital signs reviewed: Yes - General General: Alert and oriented X 3, No acute distress - HEENT HEENT: PERRL, Moist mucous membranes - Neck Neck: Supple, no meningeal sign - Cardiac Cardiac: RRR, Strong equal pulses - Respiratory Respiratory: No respiratory distress, Clear bilaterally - Abdomen Abdomen: Soft, Non distended, Other (Tender palpation right upper quadrant and right lower quadrant. No peritoneal signs.) - Back Back: No CVA TTP - Derm Derm: Warm and dry, No rash - Extremities Extremities: No edema, No calf tenderness / cord - Neuro Neuro: Alert and oriented X 3 - Psych Psych: Normal mood, Normal affect Results - Vitals Vitals: Vital Signs - 24 hr 05/25/22 05/25/22 05/25/22 10:06 12:10 14:00 Temperature 36.6 C 36.6 C Heart Rate 79 80 82 Respiratory 16 16 16 Rate Blood Pressure 120/75 120/72 122/74 O2 Saturation 99 100 98 05/25/22 15:53 Temperature 36.6 C Heart Rate 88 Respiratory 16 Rate Blood Pressure 123/78 O2 Saturation 96 Oxygen O2 Source Room air - Labs Labs: Laboratory Tests 05/25/22 05/25/22 05/25/22 10:42 10:42 11:45 WBC 10.9 H RBC 4.58 Hgb 13.1 Hct 39.5 MCV 86.2 MCH 28.6 MCHC 33.2 RDW 12.4 Plt Count 395 MPV 9.7 Neut # (Auto) 6.5 Lymph # (Auto) 3.5 [place] # (Auto) 0.7 Eos # (Auto) 0.1 Baso # (Auto) 0.1 Absolute Nucleated RBC 0.00 Nucleated RBC % 0.0 Sodium 140 Potassium 3.6 Chloride 105 Carbon Dioxide 24 Anion Gap 11.0 BUN 9 Creatinine 0.7 Estimated GFR (MDRD) 102 Glucose 88 Calcium 8.9 Total Bilirubin 0.3 AST 15 ALT 19 Alkaline Phosphatase 101 Total Protein 7.7 Albumin 3.8 Globulin 3.9 Albumin/Globulin Ratio 1.0 Lipase 42 Urine Color YELLOW Urine Clarity HAZY Urine pH 6.0 Ur Specific [place] 1.020 Urine Protein NEGATIVE Urine Glucose (UA) NEGATIVE Urine Ketones NEGATIVE Urine Occult Blood MODERATE H Urine Nitrite NEGATIVE Urine Bilirubin NEGATIVE Urine Urobilinogen 0.2 (NORMAL) Ur Leukocyte Esterase SMALL H Urine RBC 0-5 Urine WBC 6-10 H Ur Squamous Epith Cells MANY Squamous H Urine Bacteria Rare Ur Microscopic Review INDICATED Urine Culture Comments NOT INDICATED Urine HCG, Qual NEGATIVE - Rads (name of study) RUQ US Radiology: Final report received, EMP read contemporaneously, See rad report Ct abd pelvis Radiology: Final report received, EMP read contemporaneously, See rad report PD MEDICAL DECISION MAKING - ED course Complexity details: reviewed results, re-evaluated patient (Soft nontender nondistended on serial exam), considered differential, d/w patient ED course: Patient with a 2 cm gallstone on ultrasound. No evidence of cholecystitis. No acute findings on abdomen pelvis CT. Eating and drinking without difficulty. Pain well controlled. Unclear etiology of her symptoms. Possible biliary colic? We will have her follow-up with her doctor for further care. Patient is well-appearing, nontoxic. Afebrile. Patient counseled regarding signs and symptoms for which I believe and urgent re-evaluation would be necessary. Patient with good understanding of and agreement to plan and is comfortable going home at this time This document was made in part using voice recognition software. While efforts are made to proofread this document, sound alike and grammatical errors may occur. Departure - Departure Disposition: 01 Home, Self Care Clinical Impression: Abdominal pain Qualifiers: Abdominal location: unspecified location Qualified Code(s): R10.9 - Unspecified abdominal pain Gallstone Qualifiers: Cholecystitis presence: without cholecystitis Biliary obstruction: without biliary obstruction Qualified Code(s): K80.20 - Calculus of gallbladder without cholecystitis without obstruction Condition: Good Instructions: ED Abdominal Pain Female Non-Specific Abdominal Pain, ED Gallstone W Biliary Colic Follow-Up: your,doctor in 1 week [Other] Comments: The cause of your pain is unclear today. You do have a 2 cm gallstone, but this is not obstructed or infected. Please follow-up with your doctor for further testing such as a HIDA scan to see if this is potentially causing your symptoms. If it is causing your symptoms, your doctor will need to refer you to a surgeon for cholecystectomy. Return if you worsen. Your CT scan does not show any acute abnormalities. Discharge Date/Time: 05/25/22 15:53
[2022-05-25] MEDS ORDERED: SUCRALFATE 1 GM/10 ML UDC PO STA (11:36)
[2022-05-25] MEDS ORDERED: MAG HYDROX/AL HYDROX/SIMETH 30 ML UDC PO STA (11:36)
[2022-05-25] MEDS ORDERED: ONDANSETRON ODT 4 MG TABLET TL STA ×2 (11:36→15:43)
[2022-05-25] MEDS ORDERED: PANTOPRAZOLE 40 MG TABLET PO STA (11:36)
[2022-05-25 11:55] LABS: BILIRUBIN,URINE NEGATIVE (NEGATIVE); GLUCOSE, URINE (UA) NEGATIVE (NEGATIVE); KETONES,URINE (UA) NEGATIVE (NEGATIVE); LEUKOCYTE ESTERASE, URINE SMALL (NEGATIVE); NITRITE,URINE NEGATIVE (NEGATIVE); OCCULT BLOOD,URINE MODERATE (NEGATIVE); PROTEIN,URINE NEGATIVE (NEGATIVE); UROBILINOGEN,URINE 0.2 (NORMAL) E.U./dL (NORMAL)
[2022-05-25 11:56] LABS: CLARITY,URINE HAZY (CLEAR); HCG UR QUAL NEGATIVE
[2022-05-25 12:07] LABS: RBC,URINE 0-5 /HPF (0-5); SQUAMOUS EPITHELIAL CELL,UR MANY Squamous (<= Few)
[2022-05-25 12:08] LABS: BACTERIA,URINE Rare /HPF (None Seen)
--- NOTE | 2022-05-25 13:02 | Ultrasound Report ---
PROCEDURE: Abdomen Limited INDICATIONS: RUQ abd pain TECHNIQUE: Real-time focused scanning was performed of the abdomen, with image documentation. COMPARISON: Correlation is made with the prior abdomen and pelvis CT, 02/27/2021. FINDINGS: The liver demonstrates normal size. The liver demonstrates moderately increased echogeni city, which limits ultrasound sensitivity for detection of masses. There is a 2 cm gallstone seen. The gallbladder wall does not appear thickened. There is no specific pericholecystic fluid. The sonographic Kong's sign is negative. No biliary ductal dilatation is seen. The common bile duct measures 4 mm. The pancreas is not seen. The visualized right kidney is unremarkable. IMPRESSION: A gallstone can be seen within the gallbladder, without additional sonographic signs of cholecystitis . No biliary dilatation is seen. Increased liver echogenicity is seen. This is nonspecific, yet it is most commonly attributed to fatt y infiltration. Note: Concordant preliminary findings given by the corporate staff accountant upon the completion of the examination to Dr. Shell at 12:50 PM Reviewed by: Dae Cole MD on 05/25/2022 12:01 PM [place] Approved by: Dae Cole MD on 05/25/2022 12:01 PM [facility] Station ID: [id number]
[2022-05-25] MEDS ORDERED: iohexoL-300 100 ML VIAL ONE (13:13)
[2022-05-25] MEDS ORDERED: NALBUPHINE 10 MG/ML AMP IVP STA (13:26)
[2022-05-25] MEDS ORDERED: iohexoL-300 100 ML VIAL IVP ONE (14:44)
--- NOTE | 2022-05-25 14:54 | CT Report ---
PROCEDURE: ABDOMEN/PELVIS W INDICATIONS: diffuse abd pain CONTRAST: Omni 300 100ml TECHNIQUE: After the administration of IV contrast, 5 mm thick sections acquired from the diaphragms to the symp hysis. 5 mm thick coronal and sagittal reformats were acquired. For radiation dose reduction, the f ollowing was used: automated exposure control, adjustment of mA and/or kV according to patient size. COMPARISON: 02/27/2021. Correlation is also made with the accompanying abdominal ultrasound, 05/25/20. FINDINGS: Image quality: Excellent. ABDOMEN: Lung bases: Lung bases are clear. Heart size is normal. Solid organs: Liver and spleen are normal in size and enhancement. An accessory splenule is inciden tally noted along the hilum of the primary spleen. Gallbladder wall does not appear thickened. The known gallstone that is seen by ultrasound is now seen by CT. Biliary system is non dilated. Panc reas enhances normally. No adrenal nodules. Kidneys demonstrate normal size and enhancement, withou t hydronephrosis. Peritoneum and bowel: Bowel loops demonstrate normal wall thickness and caliber. No free fluid or a ir. A normal appendix is seen. Nodes and vessels: No retroperitoneal or mesenteric adenopathy by size criteria. Aorta and inferior vena cava are normal in size. Miscellaneous: No ventral hernias. PELVIS: Genitourinary: Bladder wall thickness is normal. The uterus demonstrates an unremarkable appearance for age. No adnexal masses are seen. Miscellaneous: No inguinal hernias or adenopathy. Bones: No suspicious bony lesions. No vertebral body compression fractures. IMPRESSION: No acute abnormality is identified. Normal appendix. Nonvisualization of the known gallstone. Additional findings: Accessory splenule Reviewed by: Dae Cole MD on 05/25/2022 1:53 PM [facility] Approved by: Dae Cole MD on 05/25/2022 1:53 PM [facility] Station ID: [id number]
[2022-05-25 15:54] VITALS: BP 123/78
== END 2022-05-25 15:53 | disposition home or self-care (01) ==
LOC: EDUNIT# → ED 10:03
DX: R10.9 Unspecified abdominal pain (principal); K80.20 Calculus of gallbladder without cholecystitis without obstruction; F17.200 Nicotine dependence, unspecified, uncomplicated
CPT/HCPCS: 36415; 74177; 76705; 80053; 81001; 81025; 83690; 85025; 96374; 99282; 99284; A9270; J2300; Q0162; Q9967; 81003; 87086

== ENCOUNTER 2022-09-10 22:37 | Outpatient (CLI) | payer MEDICARE, MEDICAID | END 2022-09-10 23:59 | disposition EMS.NT | LOC: EMS 22:37 | DX: R19.7 Diarrhea, unspecified (principal) ==

== ENCOUNTER 2022-09-11 10:37 | Emergency (ER) | payer MEDICARE, MEDICAID ==
[2022-09-11 10:45] VITALS: BP 120/53
--- OUTSIDE RECORDS SUMMARY | 2022-09-11 11:06 | EXTERNAL MEDICAL SUMMARY RPT | Continuity of Care Document ---
:1995 Author Organization [facility] Address [address] [place] [address] Phone Care Team Providers Name Role Phone Unavailable Unavailable Unavailable Yesi Barrios Unavailable Unavailable Allergies No information. Encounters No information. Functional Status No information. Immunizations No information. Medications No information. Problems No information. Procedures No information. Results/Labs test date author facility value unit interpret ation Result panel 1 (unknown) (no (unknown) (unknown) (no value) (units (unk nown) date) unknown) (unknown) (no (unknown) (unknown) 07/04/22 (units (unkno wn) date) unknown) (unknown) (no (unknown) (unknown) [id number] (units (unkno wn) date) unknown) (unknown) (no (unknown) (unknown) Age/Sex: 26 / F (units (unknown) date) Date of Service: unknown) (unknown) (no (unknown) (unknown) Allergic (units (unkno wn) date) rhinitis (2007) unknown) (unknown) (no (unknown) (unknown) Allergies (units (unkn own) date) unknown) (unknown) (no (unknown) (unknown) [place], [place] (units ( unknown) date) [id number] unknown) (unknown) (no (unknown) (unknown) Anxiety () (units (unknown) date) unknown) (unknown) (no (unknown) (unknown) Asperger's (units (unk nown) date) disorder unknown) (09/19/16) (unknown) (no (unknown) (unknown) Attending Dr: (units ( unknown) date) Jonna Payne unknown) (unknown) (no (unknown) (unknown) Autism () (units (unknown) date) unknown) (unknown) (no (unknown) (unknown) C. difficile (units (u nknown) date) colitis (01/2021) unknown) (unknown) (no (unknown) (unknown) Chickenpox (units (unk nown) date) (1996) unknown) (unknown) (no (unknown) (unknown) : 1995 (units (unknown) date) Acct:[id number] unknown) (unknown) (no (unknown) (unknown) Dept at (units (unkno wn) date) . unknown) (unknown) (no (unknown) (unknown) Diarrhea (units (unkno wn) date) unknown) (unknown) (no (unknown) (unknown) Documented By: (units (unknown) date) Jonna Payne unknownJessica BRUNSON 07/04/22 1304 (unknown) (no (unknown) (unknown) Draft (units (unkno wn) date) unknown) (unknown) (no (unknown) (unknown) Family History (units (unknown) date) (Reviewed unknown) 08/08/21 @ 08:02 by Mateo Arboleda MD) (unknown) (no (unknown) (unknown) Father No (units (unkn own) date) problems noted. unknown) (unknown) (no (unknown) (unknown) Grandfather (units (un known) date) Cancer unknown) (unknown) (no (unknown) (unknown) Hallucinating (units ( unknown) date) unknown) (unknown) (no (unknown) (unknown) Hallucinations (units (unknown) date) and sleep walking unknown) (unknown) (no (unknown) (unknown) History of (units (unk nown) date) Clostridioides unknown) difficile colitis (unknown) (no (unknown) (unknown) History of oral (units (unknown) date) surgery (2007) unknown) (unknown) (no (unknown) (unknown) Intake Clinical (units (unknown) date) Staff unknown) (unknown) (no (unknown) (unknown) Intake performed (units (unknown) date) by: Suzy Kerr unknown) (unknown) (no (unknown) (unknown) Intake (units (unkno wn) date) unknown) (unknown) (no (unknown) (unknown) [facility] (units (unknown) date) unknown) (unknown) (no (unknown) (unknown) Loc: [facility] (units (unkno wn) date) unknown) (unknown) (no (unknown) (unknown) Medical History (units (unknown) date) (Reviewed unknown) 08/08/21 @ 08:02 by Mateo Arboleda MD) (unknown) (no (unknown) (unknown) Mother No (units (unkn own) date) problems noted. unknown) (unknown) (no (unknown) (unknown) Mucous in stools (units (unknown) date) unknown) (unknown) (no (unknown) (unknown) PFSH (units (unkno wn) date) unknown) (unknown) (no (unknown) (unknown) PTSD (units (unkno wn) date) (post-traumatic unknown) stress disorder) (unknown) (no (unknown) (unknown) Patient: (units (unkno wn) date) Samantha Donnelly R unknown) MR#: [id number] (unknown) (no (unknown) (unknown) Reason For Visit (units (unknown) date) unknown) (unknown) (no (unknown) (unknown) Signed By: (units (unk nown) date) unknown) (unknown) (no (unknown) (unknown) Smoking Status: (units (unknown) date) Former smoker unknown) (unknown) (no (unknown) (unknown) Social History (units (unknown) date) unknown) (unknown) (no (unknown) (unknown) Surgery Office (units (unknown) date) Visit unknown) (unknown) (no (unknown) (unknown) Surgical History (units (unknown) date) (Reviewed unknown) 08/08/21 @ 08:02 by Mateo Arboleda MD) (unknown) (no (unknown) (unknown) This note may (units ( unknown) date) have been all or unknown) partially generated using voice recognition (unknown) (no (unknown) (unknown) Tobacco Status (units (unknown) date) unknown) (unknown) (no (unknown) (unknown) Tobacco: How (units (u nknown) date) many years used: unknown) 1 (very occasional) (unknown) (no (unknown) (unknown) Visit Reasons: (units (unknown) date) [employer]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 (units (unknown) date) If there are any unknown) questions, please contact the Medical Records (unknown) (no (unknown) (unknown) household (units (unkn own) date) members: family unknown) (unknown) (no (unknown) (unknown) may occur. (units (unk nown) date) Occasional unknown) wrong-word or 'sound-alike' substitutions may have (unknown) (no (unknown) (unknown) occurred due to (units (unknown) date) the inherent unknown) limitations of voice recognition software. Please (unknown) (no (unknown) (unknown) read the note (units ( unknown) date) carefully and unknown) recognize, using context, where these substitutions (unknown) (no (unknown) (unknown) second hand (units (un known) date) exposure: Yes unknown) (unknown) (no (unknown) (unknown) software. (units (unkn own) date) Although every unknown) effort is made to edit content, surgical instruments inspector errors (unknown) (no (unknown) (unknown) substance use (units ( unknown) date) type: does not unknown) use (unknown) (no (unknown) (unknown) zolpidem [From (units (unknown) date) Ambien] Adverse unknown) Reaction (Severe, Verified 05/29/22 09:13) Result panel 2 (unknown) (no (unknown) (unknown) (no value) (units (unk nown) date) unknown) (unknown) (no (unknown) (unknown) #60 caps (units (unkno wn) date) 05/29/22 [Rx unknown) Confirmed 07/04/22] (unknown) (no (unknown) (unknown) 07/04/22 (units (unkno wn) date) unknown) (unknown) (no (unknown) (unknown) 13:14 (units (unkno wn) date) unknown) (unknown) (no (unknown) (unknown) [id number] (units (unkno wn) date) unknown) (unknown) (no (unknown) (unknown) Age/Sex: 26 / F (units (unknown) date) Date of Service: unknown) (unknown) (no (unknown) (unknown) Allergic (units (unkno wn) date) rhinitis (2007) unknown) (unknown) (no (unknown) (unknown) Allergies (units (unkn own) date) unknown) (unknown) (no (unknown) (unknown) [place], [place] (units ( unknown) date) [id number] unknown) (unknown) (no (unknown) (unknown) Anxiety () (units (unknown) date) unknown) (unknown) (no (unknown) (unknown) Asperger's (units (unk nown) date) disorder unknown) (09/19/16) (unknown) (no (unknown) (unknown) Attending Dr: (units ( unknown) date) Jonna Payne unknown) (unknown) (no (unknown) (unknown) Autism () (units (unknown) date) unknown) (unknown) (no (unknown) (unknown) BMI 32.2 (units (unkno wn) date) unknown) (unknown) (no (unknown) (unknown) BP 118/76 (units (unkn own) date) unknown) (unknown) (no (unknown) (unknown) Blood Pressure (units (unknown) date) Location Lt unknown) brachial (unknown) (no (unknown) (unknown) C. difficile (units (u nknown) date) colitis (01/2021) unknown) (unknown) (no (unknown) (unknown) Chickenpox (units (unk nown) date) (1996) unknown) (unknown) (no (unknown) (unknown) Confirmed (units (unkn own) date) 07/04/22] unknown) (unknown) (no (unknown) (unknown) : 1995 (units (unknown) date) Acct:[id number] unknown) (unknown) (no (unknown) (unknown) Dept at (units (unkno wn) date) . unknown) (unknown) (no (unknown) (unknown) Diarrhea (units (unkno wn) date) unknown) (unknown) (no (unknown) (unknown) Documented By: (units (unknown) date) Jonna Payne unknownJessica BRUNSON 07/04/22 1304 (unknown) (no (unknown) (unknown) Draft (units (unkno wn) date) unknown) (unknown) (no (unknown) (unknown) Family History (units (unknown) date) (Reviewed unknown) 07/04/22 @ 13:15 by Suzy Kerr RN) (unknown) (no (unknown) (unknown) Father No (units (unkn own) date) problems noted. unknown) (unknown) (no (unknown) (unknown) Grandfather (units (un known) date) Cancer unknown) (unknown) (no (unknown) (unknown) Hallucinating (units ( unknown) date) unknown) (unknown) (no (unknown) (unknown) Hallucinations (units (unknown) date) and sleep walking unknown) (unknown) (no (unknown) (unknown) Height 5 ft 4 in (units (unknown) date) unknown) (unknown) (no (unknown) (unknown) History of (units (unk nown) date) Clostridioides unknown) difficile colitis (unknown) (no (unknown) (unknown) History of oral (units (unknown) date) surgery (2007) unknown) (unknown) (no (unknown) (unknown) Intake Clinical (units (unknown) date) Staff unknown) (unknown) (no (unknown) (unknown) Intake performed (units (unknown) date) by: Suzy Kerr unknown) (unknown) (no (unknown) (unknown) Intake (units (unkno wn) date) unknown) (unknown) (no (unknown) (unknown) [facility] (units (unknown) date) unknown) (unknown) (no (unknown) (unknown) Loc: [facility] (units (unkno wn) date) unknown) (unknown) (no (unknown) (unknown) Medical History (units (unknown) date) (Reviewed unknown) 07/04/22 @ 13:15 by Suzy Kerr RN) (unknown) (no (unknown) (unknown) Medications (units (un known) date) unknown) (unknown) (no (unknown) (unknown) Mother No (units (unkn own) date) problems noted. unknown) (unknown) (no (unknown) (unknown) Mucous in stools (units (unknown) date) unknown) (unknown) (no (unknown) (unknown) Oxygen Delivery (units (unknown) date) Method room air unknown) (unknown) (no (unknown) (unknown) PFSH (units (unkno wn) date) unknown) (unknown) (no (unknown) (unknown) PTSD (units (unkno wn) date) (post-traumatic unknown) stress disorder) (unknown) (no (unknown) (unknown) Patient: (units (unkno wn) date) Samantha Donnelly R unknown) MR#: [id number] (unknown) (no (unknown) (unknown) Position Sitting (units (unknown) date) unknown) (unknown) (no (unknown) (unknown) Pulse 97 H (units (unk nown) date) unknown) (unknown) (no (unknown) (unknown) Pulse Oximetry (units (unknown) date) (%) 99 unknown) (unknown) (no (unknown) (unknown) Pulse Source (units (u nknown) date) Monitor unknown) (unknown) (no (unknown) (unknown) Reason For Visit (units (unknown) date) unknown) (unknown) (no (unknown) (unknown) Signed By: (units (unk nown) date) unknown) (unknown) (no (unknown) (unknown) Smoking Status: (units (unknown) date) Former smoker unknown) (unknown) (no (unknown) (unknown) Social History (units (unknown) date) (Reviewed unknown) 07/04/22 @ 13:15 by Suzy Kerr RN) (unknown) (no (unknown) (unknown) Surgery Office (units (unknown) date) Visit unknown) (unknown) (no (unknown) (unknown) Surgical History (units (unknown) date) (Reviewed unknown) 07/04/22 @ 13:15 by Suzy Kerr RN) (unknown) (no (unknown) (unknown) Temp 98.0 F (units (un known) date) unknown) (unknown) (no (unknown) (unknown) Temp Source (units (un known) date) Temporal Artery unknown) Scan (unknown) (no (unknown) (unknown) This note may (units ( unknown) date) have been all or unknown) partially generated using voice recognition (unknown) (no (unknown) (unknown) Tobacco Status (units (unknown) date) unknown) (unknown) (no (unknown) (unknown) Tobacco: How (units (u nknown) date) many years used: unknown) 1 (very occasional) (unknown) (no (unknown) (unknown) Visit Reasons: (units (unknown) date) [employer]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 unknown) by Izabella (unknown) (no (unknown) (unknown) Vitals (units (unkno wn) date) unknown) (unknown) (no (unknown) (unknown) Weight 188 lb (units ( unknown) date) unknown) (unknown) (no (unknown) (unknown) alcohol intake: (units (unknown) date) current unknown) (unknown) (no (unknown) (unknown) constipation (units (u nknown) date) #238 grams unknown) 05/29/22 [Rx Confirmed 07/04/22] (unknown) (no (unknown) (unknown) diazepam [From (units (unknown) date) Valium] Allergy unknown) (Intermediate, Verified 07/04/22 13:07) (unknown) (no (unknown) (unknown) docusate sodium (units (unknown) date) 100 mg capsule unknown) (Colace) 100 - 200 mg PO DAILY PRN constipation (unknown) (no (unknown) (unknown) have occurred. (units (unknown) date) If there are any unknown) questions, please contact the Medical Records (unknown) (no (unknown) (unknown) household (units (unkn own) date) members: family unknown) (unknown) (no (unknown) (unknown) ibuprofen 200 mg (units (unknown) date) tablet 200 mg PO unknown) Q6H PRN 05/29/22 [History Confirmed 07/04/22] (unknown) (no (unknown) (unknown) may occur. (units (unk nown) date) Occasional unknown) wrong-word or 'sound-alike' substitutions may have (unknown) (no (unknown) (unknown) occurred due to (units (unknown) date) the inherent unknown) limitations of voice recognition software. Please (unknown) (no (unknown) (unknown) ondansetron HCl (units (unknown) date) 4 mg tablet 4 mg unknown) PO DAILY PRN nausea #30 tabs 05/29/22 [Rx (unknown) (no (unknown) (unknown) polyethylene (units (u nknown) date) glycol 3350 17 unknown) gram/dose oral powder (Miralax) 17 g PO DAILY PRN (unknown) (no (unknown) (unknown) read the note (units ( unknown) date) carefully and unknown) recognize, using context, where these substitutions (unknown) (no (unknown) (unknown) second hand (units (un known) date) exposure: Yes unknown) (unknown) (no (unknown) (unknown) software. (units (unkn own) date) Although every unknown) effort is made to edit content, surgical instruments inspector errors (unknown) (no (unknown) (unknown) substance use (units ( unknown) date) type: does not unknown) use (unknown) (no (unknown) (unknown) zolpidem [From (units (unknown) date) Ambien] Adverse unknown) Reaction (Severe, Verified 07/04/22 13:07) Result panel 3 (unknown) (no (unknown) (unknown) (no value) (units (unk nown) date) unknown) (unknown) (no (unknown) (unknown) #60 caps 05/29/22 (units (unknown) date) [Rx Confirmed unknown) 07/04/22] (unknown) (no (unknown) (unknown) (1) Calculus of (units (unknown) date) gallbladder: unknown) (unknown) (no (unknown) (unknown) 07/04/22 (units (unkno wn) date) unknown) (unknown) (no (unknown) (unknown) 13:14 (units (unkno wn) date) unknown) (unknown) (no (unknown) (unknown) [id number] (units (unkno wn) date) unknown) (unknown) (no (unknown) (unknown) Age/Sex: 26 / F (units (unknown) date) Date of Service: unknown) (unknown) (no (unknown) (unknown) Allergic rhinitis (units (unknown) date) (2007) unknown) (unknown) (no (unknown) (unknown) Allergies (units (unkn own) date) unknown) (unknown) (no (unknown) (unknown) [place], [place] (units ( unknown) date) [id number] unknown) (unknown) (no (unknown) (unknown) Anxiety (-1998) (units (unknown) date) unknown) (unknown) (no (unknown) (unknown) Asperger's (units (unk nown) date) disorder unknown) (03/21/17) (unknown) (no (unknown) (unknown) Assessment + Plan (units (unknown) date) unknown) (unknown) (no (unknown) (unknown) At this time it (units (unknown) date) is not totally unknown) clear that any of her pains are actually related (unknown) (no (unknown) (unknown) Attending Dr: (units ( unknown) date) Jonna Payne unknown) (unknown) (no (unknown) (unknown) Autism (-1998) (units (unknown) date) unknown) (unknown) (no (unknown) (unknown) BMI 32.2 (units (unkno wn) date) unknown) (unknown) (no (unknown) (unknown) BP 118/76 (units (unkn own) date) unknown) (unknown) (no (unknown) (unknown) Blood Pressure (units (unknown) date) Location Lt unknown) brachial (unknown) (no (unknown) (unknown) C. difficile (units (u nknown) date) colitis (01/2021) unknown) (unknown) (no (unknown) (unknown) Chickenpox (1996) (units (unknown) date) unknown) (unknown) (no (unknown) (unknown) Cholecystitis (units ( unknown) date) presence: without unknown) cholecystitis Biliary obstruction: (unknown) (no (unknown) (unknown) Confirmed (units (unkn own) date) 07/04/22] unknown) (unknown) (no (unknown) (unknown) : 1995 (units (unknown) date) Acct:[id number] unknown) (unknown) (no (unknown) (unknown) Dept at (units (unkno wn) date) . unknown) (unknown) (no (unknown) (unknown) Diarrhea (units (unkno wn) date) unknown) (unknown) (no (unknown) (unknown) Documented By: (units (unknown) date) Jonna Payne unknownJessica BRUNSON 07/04/22 1304 (unknown) (no (unknown) (unknown) Draft (units (unkno wn) date) unknown) (unknown) (no (unknown) (unknown) Family History (units (unknown) date) (Reviewed 07/04/22 unknown) @ 13:15 by Suzy Kerr RN) (unknown) (no (unknown) (unknown) Father No (units (unkn own) date) problems noted. unknown) (unknown) (no (unknown) (unknown) Grandfather (units (un known) date) Cancer unknown) (unknown) (no (unknown) (unknown) Hallucinating (units ( unknown) date) unknown) (unknown) (no (unknown) (unknown) Hallucinations (units (unknown) date) and sleep walking unknown) (unknown) (no (unknown) (unknown) Height 5 ft 4 in (units (unknown) date) unknown) (unknown) (no (unknown) (unknown) History of (units (unk nown) date) Clostridioides unknown) difficile colitis (unknown) (no (unknown) (unknown) History of oral (units (unknown) date) surgery (2007) unknown) (unknown) (no (unknown) (unknown) I did discuss and (units (unknown) date) encouraged Bailey unknown) to continue to try to take the fiber. I (unknown) (no (unknown) (unknown) Intake Clinical (units (unknown) date) Staff unknown) (unknown) (no (unknown) (unknown) Intake performed (units (unknown) date) by: Suzy Kerr unknown) (unknown) (no (unknown) (unknown) Intake (units (unkno wn) date) unknown) (unknown) (no (unknown) (unknown) [facility] (units (unknown) date) unknown) (unknown) (no (unknown) (unknown) Loc: [facility] (units (unkno wn) date) unknown) (unknown) (no (unknown) (unknown) Medical History (units (unknown) date) (Reviewed 07/04/22 unknown) @ 13:15 by Suzy Kerr RN) (unknown) (no (unknown) (unknown) Medications (units (un known) date) unknown) (unknown) (no (unknown) (unknown) Mother No (units (unkn own) date) problems noted. unknown) (unknown) (no (unknown) (unknown) Mucous in stools (units (unknown) date) unknown) (unknown) (no (unknown) (unknown) Oxygen Delivery (units (unknown) date) Method room air unknown) (unknown) (no (unknown) (unknown) PFSH (units (unkno wn) date) unknown) (unknown) (no (unknown) (unknown) PTSD (units (unkno wn) date) (post-traumatic unknown) stress disorder) (unknown) (no (unknown) (unknown) Patient: (units (unkno wn) date) Samantha Donnelly R unknown) MR#: [id number] (unknown) (no (unknown) (unknown) Plan (units (unkno wn) date) unknown) (unknown) (no (unknown) (unknown) Position Sitting (units (unknown) date) unknown) (unknown) (no (unknown) (unknown) Pulse 97 H (units (unk nown) date) unknown) (unknown) (no (unknown) (unknown) Pulse Oximetry (units (unknown) date) (%) 99 unknown) (unknown) (no (unknown) (unknown) Pulse Source (units (u nknown) date) Monitor unknown) (unknown) (no (unknown) (unknown) Qualifiers: (units (un known) date) unknown) (unknown) (no (unknown) (unknown) Reason For Visit (units (unknown) date) unknown) (unknown) (no (unknown) (unknown) Signed By: (units (unk nown) date) unknown) (unknown) (no (unknown) (unknown) Smoking Status: (units (unknown) date) Former smoker unknown) (unknown) (no (unknown) (unknown) Social History (units (unknown) date) (Reviewed 07/04/22 unknown) @ 13:15 by Suzy Kerr RN) (unknown) (no (unknown) (unknown) Status: Acute (units ( unknown) date) unknown) (unknown) (no (unknown) (unknown) Surgery Office (units (unknown) date) Visit unknown) (unknown) (no (unknown) (unknown) Surgical History (units (unknown) date) (Reviewed 07/04/22 unknown) @ 13:15 by Suzy Kerr RN) (unknown) (no (unknown) (unknown) Temp 98.0 F (units (un known) date) unknown) (unknown) (no (unknown) (unknown) Temp Source (units (un known) date) Temporal Artery unknown) Scan (unknown) (no (unknown) (unknown) This note may (units ( unknown) date) have been all or unknown) partially generated using voice recognition (unknown) (no (unknown) (unknown) Tobacco Status (units (unknown) date) unknown) (unknown) (no (unknown) (unknown) Tobacco: How many (units (unknown) date) years used: 1 unknown) (very occasional) (unknown) (no (unknown) (unknown) Visit Reasons: [employer] (units (unknown) date)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 by unknown) Salari (unknown) (no (unknown) (unknown) Vitals (units (unkno wn) date) unknown) (unknown) (no (unknown) (unknown) Weight 188 lb (units ( unknown) date) unknown) (unknown) (no (unknown) (unknown) able to do that (units (unknown) date) and becomes unknown) confident that the gallstone is causing her symptoms (unknown) (no (unknown) (unknown) alcohol intake: (units (unknown) date) current unknown) (unknown) (no (unknown) (unknown) an onset later in (units (unknown) date) the day but she is unknown) not able to correlate any certain types of (unknown) (no (unknown) (unknown) clear that the (units (unknown) date) pain she is unknown) experiencing is related to her gallstone. However (unknown) (no (unknown) (unknown) constipation #238 (units (unknown) date) grams 05/29/22 [Rx unknown) Confirmed 07/04/22] (unknown) (no (unknown) (unknown) continue to (units (un known) date) monitor the pain unknown) and see if she can start to correlate some of the (unknown) (no (unknown) (unknown) diazepam [From (units (unknown) date) Valium] Allergy unknown) (Intermediate, Verified 07/04/22 13:07) (unknown) (no (unknown) (unknown) docusate sodium (units (unknown) date) 100 mg capsule unknown) (Colace) 100 - 200 mg PO DAILY PRN constipation (unknown) (no (unknown) (unknown) education and (units ( unknown) date) some handouts I unknown) think the best course of action is for Bailey to (unknown) (no (unknown) (unknown) food or any (units (un known) date) really specific unknown) timing surrounding the pain. Given this and the (unknown) (no (unknown) (unknown) gallbladder (units (un known) date) symptoms. Her pain unknown) is in the right upper quadrant and tends to have (unknown) (no (unknown) (unknown) going to be due (units (unknown) date) to a gallstone but unknown) it is possible that the right upper quadrant (unknown) (no (unknown) (unknown) have occurred. If (units (unknown) date) there are any unknown) questions, please contact the Medical Records (unknown) (no (unknown) (unknown) household (units (unkn own) date) members: family unknown) (unknown) (no (unknown) (unknown) ibuprofen 200 mg (units (unknown) date) tablet 200 mg PO unknown) Q6H PRN 05/29/22 [History Confirmed 07/04/22] (unknown) (no (unknown) (unknown) lack of any sign (units (unknown) date) of cholecystitis unknown) on her imaging studies it is simply not 100% (unknown) (no (unknown) (unknown) may occur. (units (unk nown) date) Occasional unknown) wrong-word or 'sound-alike' substitutions may have (unknown) (no (unknown) (unknown) occurred due to (units (unknown) date) the inherent unknown) limitations of voice recognition software. Please (unknown) (no (unknown) (unknown) ondansetron HCl 4 (units (unknown) date) mg tablet 4 mg PO unknown) DAILY PRN nausea #30 tabs 05/29/22 [Rx (unknown) (no (unknown) (unknown) pain that she (units ( unknown) date) felt around the unknown) time of Thanksgiving is related. After providing (unknown) (no (unknown) (unknown) polyethylene (units (u nknown) date) glycol 3350 17 unknown) gram/dose oral powder (Miralax) 17 g PO DAILY PRN (unknown) (no (unknown) (unknown) read the note (units ( unknown) date) carefully and unknown) recognize, using context, where these substitutions (unknown) (no (unknown) (unknown) second hand (units (un known) date) exposure: Yes unknown) (unknown) (no (unknown) (unknown) she can return to (units (unknown) date) the office and unknown) discuss laparoscopic cholecystectomy at that (unknown) (no (unknown) (unknown) software. 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 I do not think all of her symptoms (unknown) (no (unknown) (unknown) think this will (units (unknown) date) help with bowel unknown) movements and other various pains. (unknown) (no (unknown) (unknown) time. She and her (units (unknown) date) mom are okay with unknown) that plan. (unknown) (no (unknown) (unknown) to the gallstone. (units (unknown) date) I did spend a good unknown) amount of time discussing typical (unknown) (no (unknown) (unknown) typical (units (unkno wn) date) gallbladder unknown) symptoms with the pain that she is experiencing. If she is (unknown) (no (unknown) (unknown) with the bowel (units (unknown) date) movements in the unknown) mucus and other various abdominal pains are (unknown) (no (unknown) (unknown) without biliary (units (unknown) date) obstruction unknown) Qualified Code(s): K80.20 - Calculus of gallbladder (unknown) (no (unknown) (unknown) without (units (unkno wn) date) cholecystitis unknown) without obstruction (unknown) (no (unknown) (unknown) zolpidem [From (units (unknown) date) Ambien] Adverse unknown) Reaction (Severe, Verified 07/04/22 13:07) Result panel 4 (unknown) (no (unknown) (unknown) (no value) (units (unk nown) date) unknown) (unknown) (no (unknown) (unknown) #60 caps 05/29/22 (units (unknown) date) [Rx Confirmed unknown) 07/04/22] (unknown) (no (unknown) (unknown) (1) Calculus of (units (unknown) date) gallbladder: unknown) (unknown) (no (unknown) (unknown) 07/04/22 (units (unkno wn) date) unknown) (unknown) (no (unknown) (unknown) 13:14 (units (unkno wn) date) unknown) (unknown) (no (unknown) (unknown) [id number] (units (unkno wn) date) unknown) (unknown) (no (unknown) (unknown) Age/Sex: 26 / F (units (unknown) date) Date of Service: unknown) (unknown) (no (unknown) (unknown) Allergic rhinitis (units (unknown) date) (2007) unknown) (unknown) (no (unknown) (unknown) Allergies (units (unkn own) date) unknown) (unknown) (no (unknown) (unknown) [place], [place] (units ( unknown) date) [id number] unknown) (unknown) (no (unknown) (unknown) Anxiety () (units (unknown) date) unknown) (unknown) (no (unknown) (unknown) Asperger's (units (unk nown) date) disorder unknown) (09/19/16) (unknown) (no (unknown) (unknown) Assessment + Plan (units (unknown) date) unknown) (unknown) (no (unknown) (unknown) At this time it (units (unknown) date) is not totally unknown) clear that any of her pains are actually related (unknown) (no (unknown) (unknown) Attending Dr: (units ( unknown) date) Jonna Payne unknown) (unknown) (no (unknown) (unknown) Autism () (units (unknown) date) unknown) (unknown) (no (unknown) (unknown) BMI 32.2 (units (unkno wn) date) unknown) (unknown) (no (unknown) (unknown) BP 118/76 (units (unkn own) date) unknown) (unknown) (no (unknown) (unknown) Blood Pressure (units (unknown) date) Location Lt unknown) brachial (unknown) (no (unknown) (unknown) C. difficile (units (u nknown) date) colitis (01/2021) unknown) (unknown) (no (unknown) (unknown) Chickenpox (1996) (units (unknown) date) unknown) (unknown) (no (unknown) (unknown) Cholecystitis (units ( unknown) date) presence: without unknown) cholecystitis Biliary obstruction: (unknown) (no (unknown) (unknown) Confirmed (units (unkn own) date) 07/04/22] unknown) (unknown) (no (unknown) (unknown) : 1995 (units (unknown) date) Acct:[id number] unknown) (unknown) (no (unknown) (unknown) Dept at (units (unkno wn) date) . unknown) (unknown) (no (unknown) (unknown) Diarrhea (units (unkno wn) date) unknown) (unknown) (no (unknown) (unknown) Documented By: (units (unknown) date) Jonna Payne unknownJessica BRUNSON 07/04/22 1304 (unknown) (no (unknown) (unknown) Draft (units (unkno wn) date) unknown) (unknown) (no (unknown) (unknown) Family History (units (unknown) date) (Reviewed 07/04/22 unknown) @ 13:15 by Suzy Kerr RN) (unknown) (no (unknown) (unknown) Father No (units (unkn own) date) problems noted. unknown) (unknown) (no (unknown) (unknown) Grandfather (units (un known) date) Cancer unknown) (unknown) (no (unknown) (unknown) Hallucinating (units ( unknown) date) unknown) (unknown) (no (unknown) (unknown) Hallucinations (units (unknown) date) and sleep walking unknown) (unknown) (no (unknown) (unknown) Height 5 ft 4 in (units (unknown) date) unknown) (unknown) (no (unknown) (unknown) History of (units (unk nown) date) Clostridioides unknown) difficile colitis (unknown) (no (unknown) (unknown) History of oral (units (unknown) date) surgery (2007) unknown) (unknown) (no (unknown) (unknown) I did discuss and (units (unknown) date) encouraged Samantha unknown) to continue to try to take the fiber. I (unknown) (no (unknown) (unknown) Intake Clinical (units (unknown) date) Staff unknown) (unknown) (no (unknown) (unknown) Intake performed (units (unknown) date) by: Suzy Kerr unknown) (unknown) (no (unknown) (unknown) Intake (units (unkno wn) date) unknown) (unknown) (no (unknown) (unknown) [facility] (units (unknown) date) unknown) (unknown) (no (unknown) (unknown) Loc: [facility] (units (unkno wn) date) unknown) (unknown) (no (unknown) (unknown) Medical History (units (unknown) date) (Reviewed 07/04/22 unknown) @ 13:15 by Suzy Kerr RN) (unknown) (no (unknown) (unknown) Medications (units (un known) date) unknown) (unknown) (no (unknown) (unknown) Mother No (units (unkn own) date) problems noted. unknown) (unknown) (no (unknown) (unknown) Mucous in stools (units (unknown) date) unknown) (unknown) (no (unknown) (unknown) Oxygen Delivery (units (unknown) date) Method room air unknown) (unknown) (no (unknown) (unknown) PFSH (units (unkno wn) date) unknown) (unknown) (no (unknown) (unknown) PTSD (units (unkno wn) date) (post-traumatic unknown) stress disorder) (unknown) (no (unknown) (unknown) Patient: (units (unkno wn) date) Samantha Donnelly R unknown) MR#: [id number] (unknown) (no (unknown) (unknown) Plan (units (unkno wn) date) unknown) (unknown) (no (unknown) (unknown) Position Sitting (units (unknown) date) unknown) (unknown) (no (unknown) (unknown) Pulse 97 H (units (unk nown) date) unknown) (unknown) (no (unknown) (unknown) Pulse Oximetry (units (unknown) date) (%) 99 unknown) (unknown) (no (unknown) (unknown) Pulse Source (units (u nknown) date) Monitor unknown) (unknown) (no (unknown) (unknown) Qualifiers: (units (un known) date) unknown) (unknown) (no (unknown) (unknown) Reason For Visit (units (unknown) date) unknown) (unknown) (no (unknown) (unknown) Signed By: (units (unk nown) date) unknown) (unknown) (no (unknown) (unknown) Smoking Status: (units (unknown) date) Former smoker unknown) (unknown) (no (unknown) (unknown) Social History (units (unknown) date) (Reviewed 07/04/22 unknown) @ 13:15 by Suzy Kerr RN) (unknown) (no (unknown) (unknown) Status: Acute (units ( unknown) date) unknown) (unknown) (no (unknown) (unknown) Surgery Office (units (unknown) date) Visit unknown) (unknown) (no (unknown) (unknown) Surgical History (units (unknown) date) (Reviewed 07/04/22 unknown) @ 13:15 by Suzy Kerr RN) (unknown) (no (unknown) (unknown) Temp 98.0 F (units (un known) date) unknown) (unknown) (no (unknown) (unknown) Temp Source (units (un known) date) Temporal Artery unknown) Scan (unknown) (no (unknown) (unknown) This note may (units ( unknown) date) have been all or unknown) partially generated using voice recognition (unknown) (no (unknown) (unknown) Tobacco Status (units (unknown) date) unknown) (unknown) (no (unknown) (unknown) Tobacco: How many (units (unknown) date) years used: 1 unknown) (very occasional) (unknown) (no (unknown) (unknown) Visit Reasons: [facility] (units (unknown) date)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 by unknown) Izabella (unknown) (no (unknown) (unknown) Vitals (units (unkno wn) date) unknown) (unknown) (no (unknown) (unknown) Weight 188 lb (units ( unknown) date) unknown) (unknown) (no (unknown) (unknown) able to do that (units (unknown) date) and becomes unknown) confident that the gallstone is causing her symptoms (unknown) (no (unknown) (unknown) alcohol intake: (units (unknown) date) current unknown) (unknown) (no (unknown) (unknown) an onset later in (units (unknown) date) the day but she is unknown) not able to correlate any certain types of (unknown) (no (unknown) (unknown) clear that the (units (unknown) date) pain she is unknown) experiencing is related to her gallstone. However (unknown) (no (unknown) (unknown) constipation #238 (units (unknown) date) grams 05/29/22 [Rx unknown) Confirmed 07/04/22] (unknown) (no (unknown) (unknown) continue to (units (un known) date) monitor the pain unknown) and see if she can start to correlate some of the (unknown) (no (unknown) (unknown) diazepam [From (units (unknown) date) Valium] Allergy unknown) (Intermediate, Verified 07/04/22 13:07) (unknown) (no (unknown) (unknown) docusate sodium (units (unknown) date) 100 mg capsule unknown) (Colace) 100 - 200 mg PO DAILY PRN constipation (unknown) (no (unknown) (unknown) education and (units ( unknown) date) some handouts I unknown) think the best course of action is for Bailey to (unknown) (no (unknown) (unknown) food or any (units (un known) date) really specific unknown) timing surrounding the pain. Given this and the (unknown) (no (unknown) (unknown) gallbladder (units (un known) date) symptoms. Her pain unknown) is in the right upper quadrant and tends to have (unknown) (no (unknown) (unknown) going to be due (units (unknown) date) to a gallstone but unknown) it is possible that the right upper quadrant (unknown) (no (unknown) (unknown) have occurred. If (units (unknown) date) there are any unknown) questions, please contact the Medical Records (unknown) (no (unknown) (unknown) household (units (unkn own) date) members: family unknown) (unknown) (no (unknown) (unknown) ibuprofen 200 mg (units (unknown) date) tablet 200 mg PO unknown) Q6H PRN 05/29/22 [History Confirmed 07/04/22] (unknown) (no (unknown) (unknown) lack of any sign (units (unknown) date) of cholecystitis unknown) on her imaging studies it is simply not 100% (unknown) (no (unknown) (unknown) may occur. (units (unk nown) date) Occasional unknown) wrong-word or 'sound-alike' substitutions may have (unknown) (no (unknown) (unknown) occurred due to (units (unknown) date) the inherent unknown) limitations of voice recognition software. Please (unknown) (no (unknown) (unknown) ondansetron HCl 4 (units (unknown) date) mg tablet 4 mg PO unknown) DAILY PRN nausea #30 tabs 05/29/22 [Rx (unknown) (no (unknown) (unknown) pain that she (units ( unknown) date) felt around the unknown) time of Thanksgiving is related. After providing (unknown) (no (unknown) (unknown) polyethylene (units (u nknown) date) glycol 3350 17 unknown) gram/dose oral powder (Miralax) 17 g PO DAILY PRN (unknown) (no (unknown) (unknown) read the note (units ( unknown) date) carefully and unknown) recognize, using context, where these substitutions (unknown) (no (unknown) (unknown) second hand (units (un known) date) exposure: Yes unknown) (unknown) (no (unknown) (unknown) she can return to (units (unknown) date) the office and unknown) discuss laparoscopic cholecystectomy at that (unknown) (no (unknown) (unknown) software. 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 I do not think all of her symptoms (unknown) (no (unknown) (unknown) think this will (units (unknown) date) help with bowel unknown) movements and other various pains. (unknown) (no (unknown) (unknown) time. She and her (units (unknown) date) mom are okay with unknown) that plan. (unknown) (no (unknown) (unknown) to the gallstone. (units (unknown) date) I did spend a good unknown) amount of time discussing typical (unknown) (no (unknown) (unknown) typical (units (unkno wn) date) gallbladder unknown) symptoms with the pain that she is experiencing. If she is (unknown) (no (unknown) (unknown) with the bowel (units (unknown) date) movements in the unknown) mucus and other various abdominal pains are (unknown) (no (unknown) (unknown) without biliary (units (unknown) date) obstruction unknown) Qualified Code(s): K80.20 - Calculus of gallbladder (unknown) (no (unknown) (unknown) without (units (unkno wn) date) cholecystitis unknown) without obstruction (unknown) (no (unknown) (unknown) zolpidem [From (units (unknown) date) Ambien] Adverse unknown) Reaction (Severe, Verified 07/04/22 13:07) Result panel 5 (unknown) (no (unknown) (unknown) (no value) (units (unk nown) date) unknown) (unknown) (no (unknown) (unknown) #60 caps 05/29/22 (units (unknown) date) [Rx Confirmed unknown) 07/04/22] (unknown) (no (unknown) (unknown) (1) Calculus of (units (unknown) date) gallbladder: unknown) (unknown) (no (unknown) (unknown) 07/04/22 (units (unkno wn) date) unknown) (unknown) (no (unknown) (unknown) 13:14 (units (unkno wn) date) unknown) (unknown) (no (unknown) (unknown) [id number] (units (unkno wn) date) unknown) (unknown) (no (unknown) (unknown) Age/Sex: 26 / F (units (unknown) date) Date of Service: unknown) (unknown) (no (unknown) (unknown) Allergic rhinitis (units (unknown) date) (2007) unknown) (unknown) (no (unknown) (unknown) Allergies (units (unkn own) date) unknown) (unknown) (no (unknown) (unknown) Bailey is a (units (un known) date) 26-year-old unknown) autistic female who presents to my office today having (unknown) (no (unknown) (unknown) [place], [place] (units ( unknown) date) [id number] unknown) (unknown) (no (unknown) (unknown) Anxiety (-1998) (units (unknown) date) unknown) (unknown) (no (unknown) (unknown) Asperger's (units (unk nown) date) disorder unknown) (09/19/16) (unknown) (no (unknown) (unknown) Assessment + Plan (units (unknown) date) unknown) (unknown) (no (unknown) (unknown) At this time it (units (unknown) date) is not totally unknown) clear that any of her pains are actually related (unknown) (no (unknown) (unknown) Attending Dr: (units ( unknown) date) Jonna Payne unknown) (unknown) (no (unknown) (unknown) Autism (-1998) (units (unknown) date) unknown) (unknown) (no (unknown) (unknown) BMI 32.2 (units (unkno wn) date) unknown) (unknown) (no (unknown) (unknown) BP 118/76 (units (unkn own) date) unknown) (unknown) (no (unknown) (unknown) Blood Pressure (units (unknown) date) Location Lt unknown) brachial (unknown) (no (unknown) (unknown) C. difficile (units (u nknown) date) colitis (01/2021) unknown) (unknown) (no (unknown) (unknown) Chickenpox (1996) (units (unknown) date) unknown) (unknown) (no (unknown) (unknown) Chief Complaint (units (unknown) date) unknown) (unknown) (no (unknown) (unknown) Chief Complaint: (units (unknown) date) Abdominal pain, unknown) gallstone (unknown) (no (unknown) (unknown) Cholecystitis (units ( unknown) date) presence: without unknown) cholecystitis Biliary obstruction: (unknown) (no (unknown) (unknown) Confirmed (units (unkn own) date) 07/04/22] unknown) (unknown) (no (unknown) (unknown) : 1995 (units (unknown) date) Acct:[id number] unknown) (unknown) (no (unknown) (unknown) Dept at (units (unkno wn) date) . unknown) (unknown) (no (unknown) (unknown) Details: (units (unkno wn) date) unknown) (unknown) (no (unknown) (unknown) Diarrhea (units (unkno wn) date) unknown) (unknown) (no (unknown) (unknown) Documented By: (units (unknown) date) Jonna Payne MD 07/04/22 1304 (unknown) (no (unknown) (unknown) Draft (units (unkno wn) date) unknown) (unknown) (no (unknown) (unknown) Family History (units (unknown) date) (Reviewed 07/04/22 unknown) @ 13:15 by Suzy Kerr RN) (unknown) (no (unknown) (unknown) Father No (units (unkn own) date) problems noted. unknown) (unknown) (no (unknown) (unknown) August 2021 by (units (unknown) date) Dr. Randolph unknown) (unknown) (no (unknown) (unknown) Grandfather (units (un known) date) Cancer unknown) (unknown) (no (unknown) (unknown) HPI (units (unkno wn) date) unknown) (unknown) (no (unknown) (unknown) Hallucinating (units ( unknown) date) unknown) (unknown) (no (unknown) (unknown) Hallucinations (units (unknown) date) and sleep walking unknown) (unknown) (no (unknown) (unknown) Height 5 ft 4 in (units (unknown) date) unknown) (unknown) (no (unknown) (unknown) History of (units (unk nown) date) Clostridioides unknown) difficile colitis (unknown) (no (unknown) (unknown) History of oral (units (unknown) date) surgery (2007) unknown) (unknown) (no (unknown) (unknown) I did discuss and (units (unknown) date) encouraged Samantha unknown) to continue to try to take the fiber. I (unknown) (no (unknown) (unknown) Intake Clinical (units (unknown) date) Staff unknown) (unknown) (no (unknown) (unknown) Intake performed (units (unknown) date) by: Suzy Kerr unknown) (unknown) (no (unknown) (unknown) Intake (units (unkno wn) date) unknown) (unknown) (no (unknown) (unknown) [facility] (units (unknown) date) unknown) (unknown) (no (unknown) (unknown) Loc: [facility] (units (unkno wn) date) unknown) (unknown) (no (unknown) (unknown) Medical History (units (unknown) date) (Reviewed 07/04/22 unknown) @ 13:15 by Suzy Kerr RN) (unknown) (no (unknown) (unknown) Medications (units (un known) date) unknown) (unknown) (no (unknown) (unknown) Mother No (units (unkn own) date) problems noted. unknown) (unknown) (no (unknown) (unknown) Mucous in stools (units (unknown) date) unknown) (unknown) (no (unknown) (unknown) Oxygen Delivery (units (unknown) date) Method room air unknown) (unknown) (no (unknown) (unknown) PFSH (units (unkno wn) date) unknown) (unknown) (no (unknown) (unknown) PTSD (units (unkno wn) date) (post-traumatic unknown) stress disorder) (unknown) (no (unknown) (unknown) Patient: (units (unkno wn) date) Samantha Donnelly R unknown) MR#: [id number] (unknown) (no (unknown) (unknown) Plan (units (unkno wn) date) unknown) (unknown) (no (unknown) (unknown) Position Sitting (units (unknown) date) unknown) (unknown) (no (unknown) (unknown) Pulse 97 H (units (unk nown) date) unknown) (unknown) (no (unknown) (unknown) Pulse Oximetry (units (unknown) date) (%) 99 unknown) (unknown) (no (unknown) (unknown) Pulse Source (units (u nknown) date) Monitor unknown) (unknown) (no (unknown) (unknown) Qualifiers: (units (un known) date) unknown) (unknown) (no (unknown) (unknown) Reason For Visit (units (unknown) date) unknown) (unknown) (no (unknown) (unknown) Signed By: (units (unk nown) date) unknown) (unknown) (no (unknown) (unknown) Smoking Status: (units (unknown) date) Former smoker unknown) (unknown) (no (unknown) (unknown) Social History (units (unknown) date) (Reviewed 07/04/22 unknown) @ 13:15 by Suzy Kerr RN) (unknown) (no (unknown) (unknown) Status: Acute (units ( unknown) date) unknown) (unknown) (no (unknown) (unknown) Surgery Office (units (unknown) date) Visit unknown) (unknown) (no (unknown) (unknown) Surgical History (units (unknown) date) (Reviewed 07/04/22 unknown) @ 13:15 by Suzy Kerr RN) (unknown) (no (unknown) (unknown) Temp 98.0 F (units (un known) date) unknown) (unknown) (no (unknown) (unknown) Temp Source (units (un known) date) Temporal Artery unknown) Scan (unknown) (no (unknown) (unknown) This note may (units ( unknown) date) have been all or unknown) partially generated using voice recognition (unknown) (no (unknown) (unknown) Tobacco Status (units (unknown) date) unknown) (unknown) (no (unknown) (unknown) Tobacco: How many (units (unknown) date) years used: 1 unknown) (very occasional) (unknown) (no (unknown) (unknown) Visit Reasons: [facility] [facility]OUGHER (units (unknown) date)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 by unknown) Salari (unknown) (no (unknown) (unknown) Vitals (units (unkno wn) date) unknown) (unknown) (no (unknown) (unknown) Weight 188 lb (units ( unknown) date) unknown) (unknown) (no (unknown) (unknown) able to do that (units (unknown) date) and becomes unknown) confident that the gallstone is causing her symptoms (unknown) (no (unknown) (unknown) addition her neck (units (unknown) date) and her head and unknown) back was hurting as well she was having (unknown) (no (unknown) (unknown) alcohol intake: (units (unknown) date) current unknown) (unknown) (no (unknown) (unknown) an onset later in (units (unknown) date) the day but she is unknown) not able to correlate any certain types of (unknown) (no (unknown) (unknown) at being said it (units (unknown) date) most certainly unknown) could be. I do not think all of her symptoms (unknown) (no (unknown) (unknown) been referred by (units (unknown) date) her primary care unknown) physician. Three days before Thanksgiving she (unknown) (no (unknown) (unknown) bloody stools but (units (unknown) date) this is not new unknown) for her. In fact she had a colonoscopy in (unknown) (no (unknown) (unknown) clear that the (units (unknown) date) pain she is unknown) experiencing is related to her gallstone. However th (unknown) (no (unknown) (unknown) constipation #238 (units (unknown) date) grams 05/29/22 [Rx unknown) Confirmed 07/04/22] (unknown) (no (unknown) (unknown) continue to (units (un known) date) monitor the pain unknown) and see if she can start to correlate some of the (unknown) (no (unknown) (unknown) diazepam [From (units (unknown) date) Valium] Allergy unknown) (Intermediate, Verified 07/04/22 13:07) (unknown) (no (unknown) (unknown) docusate sodium (units (unknown) date) 100 mg capsule unknown) (Colace) 100 - 200 mg PO DAILY PRN constipation (unknown) (no (unknown) (unknown) education and (units ( unknown) date) some handouts I unknown) think the best course of action is for Bailey to (unknown) (no (unknown) (unknown) experienced (units (un known) date) severe abdominal unknown) pain on her right side. She relates that in (unknown) (no (unknown) (unknown) food or any (units (un known) date) really specific unknown) timing surrounding the pain. Given this and the (unknown) (no (unknown) (unknown) gallbladder (units (un known) date) symptoms. Her pain unknown) is in the right upper quadrant and tends to have (unknown) (no (unknown) (unknown) going to be due (units (unknown) date) to a gallstone but unknown) it is possible that the right upper quadrant (unknown) (no (unknown) (unknown) have occurred. If (units (unknown) date) there are any unknown) questions, please contact the Medical Records (unknown) (no (unknown) (unknown) household (units (unkn own) date) members: family unknown) (unknown) (no (unknown) (unknown) ibuprofen 200 mg (units (unknown) date) tablet 200 mg PO unknown) Q6H PRN 05/29/22 [History Confirmed 07/04/22] (unknown) (no (unknown) (unknown) lack of any sign (units (unknown) date) of cholecystitis unknown) on her imaging studies it is simply not 100% (unknown) (no (unknown) (unknown) may occur. (units (unk nown) date) Occasional unknown) wrong-word or 'sound-alike' substitutions may have (unknown) (no (unknown) (unknown) occurred due to (units (unknown) date) the inherent unknown) limitations of voice recognition software. Please (unknown) (no (unknown) (unknown) ondansetron HCl 4 (units (unknown) date) mg tablet 4 mg PO unknown) DAILY PRN nausea #30 tabs 05/29/22 [Rx (unknown) (no (unknown) (unknown) pain that she (units ( unknown) date) felt around the unknown) time of Thanksgiving is related. After providing (unknown) (no (unknown) (unknown) polyethylene (units (u nknown) date) glycol 3350 17 unknown) gram/dose oral powder (Miralax) 17 g PO DAILY PRN (unknown) (no (unknown) (unknown) read the note (units ( unknown) date) carefully and unknown) recognize, using context, where these substitutions (unknown) (no (unknown) (unknown) second hand (units (un known) date) exposure: Yes unknown) (unknown) (no (unknown) (unknown) she can return to (units (unknown) date) the office and unknown) discuss laparoscopic cholecystectomy at that (unknown) (no (unknown) (unknown) software. (units (unkn own) date) Although every unknown) effort is made to edit content, surgical instruments inspector errors (unknown) (no (unknown) (unknown) substance use (units ( unknown) date) type: does not use unknown) (unknown) (no (unknown) (unknown) think this will (units (unknown) date) help with bowel unknown) movements and other various abdominal pains. (unknown) (no (unknown) (unknown) time. She and her (units (unknown) date) mom are okay with unknown) that plan. (unknown) (no (unknown) (unknown) to the gallstone. (units (unknown) date) I did spend a good unknown) amount of time discussing typical (unknown) (no (unknown) (unknown) typical (units (unkno wn) date) gallbladder unknown) symptoms with the pain that she is experiencing. If she is (unknown) (no (unknown) (unknown) with the bowel (units (unknown) date) movements in the unknown) mucus and other various abdominal pains are (unknown) (no (unknown) (unknown) without biliary (units (unknown) date) obstruction unknown) Qualified Code(s): K80.20 - Calculus of gallbladder (unknown) (no (unknown) (unknown) without (units (unkno wn) date) cholecystitis unknown) without obstruction (unknown) (no (unknown) (unknown) zolpidem [From (units (unknown) date) Ambien] Adverse unknown) Reaction (Severe, Verified 07/04/22 13:07) Result panel 6 (unknown) (no (unknown) (unknown) (no value) (units (unk nown) date) unknown) (unknown) (no (unknown) (unknown) #60 caps 05/29/22 (units (unknown) date) [Rx Confirmed unknown) 07/04/22] (unknown) (no (unknown) (unknown) (1) Calculus of (units (unknown) date) gallbladder: unknown) (unknown) (no (unknown) (unknown) 07/04/22 1500 (units ( unknown) date) unknown) (unknown) (no (unknown) (unknown) 07/04/22 (units (unkno wn) date) unknown) (unknown) (no (unknown) (unknown) 13:14 (units (unkno wn) date) unknown) (unknown) (no (unknown) (unknown) [id number] (units (unkno wn) date) unknown) (unknown) (no (unknown) (unknown) After providing (units (unknown) date) education and some unknown) handouts I think the best course of action is (unknown) (no (unknown) (unknown) Age/Sex: 26 / F (units (unknown) date) Date of Service: unknown) (unknown) (no (unknown) (unknown) Samantha is a (units (unk nown) date) 26-year-old autistic unknown) female who presents to my office today with her (unknown) (no (unknown) (unknown) Allergic rhinitis (units (unknown) date) (2008) unknown) (unknown) (no (unknown) (unknown) Allergies (units (unkn own) date) unknown) (unknown) (no (unknown) (unknown) [place] [address] (unit s (unknown) date) unknown) (unknown) (no (unknown) (unknown) Anxiety () (units (unknown) date) unknown) (unknown) (no (unknown) (unknown) Asperger's disorder (unit s (unknown) date) (09/19/16) unknown) (unknown) (no (unknown) (unknown) Assessment + Plan (units (unknown) date) unknown) (unknown) (no (unknown) (unknown) At this time it is (units (unknown) date) not totally clear unknown) that any of her pains are actually related (unknown) (no (unknown) (unknown) Attending Dr: (units ( unknown) date) Jonna Payne MD unknown) (unknown) (no (unknown) (unknown) Attitude: avoids (units (unknown) date) eye contact unknown) (unknown) (no (unknown) (unknown) Autism () (units (unknown) date) unknown) (unknown) (no (unknown) (unknown) BMI 32.2 (units (unkno wn) date) unknown) (unknown) (no (unknown) (unknown) BP 118/76 (units (unkn own) date) unknown) (unknown) (no (unknown) (unknown) Blood Pressure (units (unknown) date) Location Lt brachial unknown) (unknown) (no (unknown) (unknown) C. difficile (units (u nknown) date) colitis (01/2021) unknown) (unknown) (no (unknown) (unknown) Cardio (units (unkno wn) date) unknown) (unknown) (no (unknown) (unknown) Chickenpox (1996) (units (unknown) date) unknown) (unknown) (no (unknown) (unknown) Chief Complaint (units (unknown) date) unknown) (unknown) (no (unknown) (unknown) Chief Complaint: (units (unknown) date) Abdominal pain, unknown) gallstone (unknown) (no (unknown) (unknown) Cholecystitis (units ( unknown) date) presence: without unknown) cholecystitis Biliary obstruction: (unknown) (no (unknown) (unknown) Confirmed 07/04/22] (unit s (unknown) date) unknown) (unknown) (no (unknown) (unknown) Const (units (unkno wn) date) unknown) (unknown) (no (unknown) (unknown) : 1995 (units (unknown) date) Acct:[id number] unknown) (unknown) (no (unknown) (unknown) Dept at (units (unkno wn) date) . unknown) (unknown) (no (unknown) (unknown) Details: (units (unkno wn) date) unknown) (unknown) (no (unknown) (unknown) Diarrhea (units (unkno wn) date) unknown) (unknown) (no (unknown) (unknown) Documented By: (units (unknown) date) Jonna Payne MD unknown) 07/04/22 1304 (unknown) (no (unknown) (unknown) Effort + (units (unkno wn) date) Inspection: normal unknown) respiratory effort and able to speak in complete (unknown) (no (unknown) (unknown) Exam (units (unkno wn) date) unknown) (unknown) (no (unknown) (unknown) Family History (units (unknown) date) (Reviewed 07/04/22 @ unknown) 13:15 by Suzy Kerr RN) (unknown) (no (unknown) (unknown) Father No problems (units (unknown) date) noted. unknown) (unknown) (no (unknown) (unknown) GI (units (unkno wn) date) unknown) (unknown) (no (unknown) (unknown) General: (units (unkno wn) date) cooperative, healthy unknown) appearing, comfortable and no acute distress (unknown) (no (unknown) (unknown) Grandfather (units (un known) date) Cancer unknown) (unknown) (no (unknown) (unknown) HENMT (units (unkno wn) date) unknown) (unknown) (no (unknown) (unknown) HPI (units (unkno wn) date) unknown) (unknown) (no (unknown) (unknown) Hallucinating (units ( unknown) date) unknown) (unknown) (no (unknown) (unknown) Hallucinations and (units (unknown) date) sleep walking unknown) (unknown) (no (unknown) (unknown) Head: normal to (units (unknown) date) inspection unknown) (unknown) (no (unknown) (unknown) Height 5 ft 4 in (units (unknown) date) unknown) (unknown) (no (unknown) (unknown) History of (units (unk nown) date) Clostridioides unknown) difficile colitis (unknown) (no (unknown) (unknown) History of oral (units (unknown) date) surgery (2008) unknown) (unknown) (no (unknown) (unknown) However, that being (unit s (unknown) date) said it most unknown) certainly could be. I do not think all of her (unknown) (no (unknown) (unknown) I did discuss and (units (unknown) date) encouraged Samantha to unknown) continue to try to take the fiber. I (unknown) (no (unknown) (unknown) If she is able to (units (unknown) date) do that and becomes unknown) confident that the gallstone is causing (unknown) (no (unknown) (unknown) Intake Clinical (units (unknown) date) Staff unknown) (unknown) (no (unknown) (unknown) Intake performed (units (unknown) date) by: Suzy Kerr unknown) (unknown) (no (unknown) (unknown) Intake (units (unkno wn) date) unknown) (unknown) (no (unknown) (unknown) [facility] (units (unknown) date) unknown) (unknown) (no (unknown) (unknown) Limitations: (units (u nknown) date) behavioral unknown) limitations (autism) (unknown) (no (unknown) (unknown) Loc: [facility] (units (unkno wn) date) unknown) (unknown) (no (unknown) (unknown) Medical History (units (unknown) date) (Reviewed 07/04/22 @ unknown) 13:15 by Suzy Kerr RN) (unknown) (no (unknown) (unknown) Medications (units (un known) date) unknown) (unknown) (no (unknown) (unknown) Mood: anxious mood (units (unknown) date) unknown) (unknown) (no (unknown) (unknown) Mother No problems (units (unknown) date) noted. unknown) (unknown) (no (unknown) (unknown) Mucous in stools (units (unknown) date) unknown) (unknown) (no (unknown) (unknown) Musc (units (unkno wn) date) unknown) (unknown) (no (unknown) (unknown) Nutritional (units (un known) date) Appearance: obese unknown) and overweight (unknown) (no (unknown) (unknown) Orientation: alert, (unit s (unknown) date) awake and oriented unknown) x3 (unknown) (no (unknown) (unknown) Other: (units (unkno wn) date) unknown) (unknown) (no (unknown) (unknown) Oxygen Delivery (units (unknown) date) Method room air unknown) (unknown) (no (unknown) (unknown) PFSH (units (unkno wn) date) unknown) (unknown) (no (unknown) (unknown) PTSD (units (unkno wn) date) (post-traumatic unknown) stress disorder) (unknown) (no (unknown) (unknown) Palpation: soft and (unit s (unknown) date) tender (there is unknown) tenderness in all four quadrants. ) (unknown) (no (unknown) (unknown) Patient: (units (unkno wn) date) Samantha Donnelly MR#: unknown) M000 (unknown) (no (unknown) (unknown) Plan (units (unkno wn) date) unknown) (unknown) (no (unknown) (unknown) Position Sitting (units (unknown) date) unknown) (unknown) (no (unknown) (unknown) Psych (units (unkno wn) date) unknown) (unknown) (no (unknown) (unknown) Pulse 97 H (units (unk nown) date) unknown) (unknown) (no (unknown) (unknown) Pulse Oximetry (%) (units (unknown) date) 99 unknown) (unknown) (no (unknown) (unknown) Pulse Source (units (u nknown) date) Monitor unknown) (unknown) (no (unknown) (unknown) Pulses: radial (units (unknown) date) pulses present unknown) (unknown) (no (unknown) (unknown) Qualifiers: (units (un known) date) unknown) (unknown) (no (unknown) (unknown) Reason For Visit (units (unknown) date) unknown) (unknown) (no (unknown) (unknown) Resp (units (unkno wn) date) unknown) (unknown) (no (unknown) (unknown) She had been on (units (unknown) date) some antibiotics for unknown) her teeth when she had had 16 cavities. (unknown) (no (unknown) (unknown) She relates that (units (unknown) date) she continues to unknown) have some blood and 'orange slime' in her (unknown) (no (unknown) (unknown) She says on (units (un known) date) occasion pain will unknown) wake her up from sleep maybe 2 or 3 times in the (unknown) (no (unknown) (unknown) Signed By: (units (unk nown) date) <Electronically unknown) signed by Jonna Payne MD> (unknown) (no (unknown) (unknown) Signed (units (unkno wn) date) unknown) (unknown) (no (unknown) (unknown) Smoking Status: (units (unknown) date) Former smoker unknown) (unknown) (no (unknown) (unknown) Social History (units (unknown) date) (Reviewed 07/04/22 @ unknown) 13:15 by Suzy Kerr RN) (unknown) (no (unknown) (unknown) Speech and (units (unk nown) date) Movement: pressured unknown) speech (unknown) (no (unknown) (unknown) Status: Acute (units ( unknown) date) unknown) (unknown) (no (unknown) (unknown) Surgery Office (units (unknown) date) Visit unknown) (unknown) (no (unknown) (unknown) Surgical History (units (unknown) date) (Reviewed 07/04/22 @ unknown) 13:15 by Suzy Kerr RN) (unknown) (no (unknown) (unknown) Temp 98.0 F (units (un known) date) unknown) (unknown) (no (unknown) (unknown) Temp Source (units (un known) date) Temporal Artery Scan unknown) (unknown) (no (unknown) (unknown) Thanksgiving got (units (unknown) date) progressively worse unknown) until she went to the emergency room (unknown) (no (unknown) (unknown) Thanksgiving she (units (unknown) date) experienced severe unknown) abdominal pain worse on her right side. She (unknown) (no (unknown) (unknown) Thanksgiving, (units (u nknown) date) although she is had unknown) several various aches and pains in her abdomen (unknown) (no (unknown) (unknown) This is what was (units (unknown) date) tagged as the unknown) inciting factor for the C diff colitis. She was (unknown) (no (unknown) (unknown) This note may have (units (unknown) date) been all or unknown) partially generated using voice recognition (unknown) (no (unknown) (unknown) Thought Process: (units (unknown) date) loose association unknown) (unknown) (no (unknown) (unknown) Tobacco Status (units (unknown) date) unknown) (unknown) (no (unknown) (unknown) Tobacco: How many (units (unknown) date) years used: 1 (very unknown) occasional) (unknown) (no (unknown) (unknown) Visit Reasons: [employer] (units (unknown) date)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 by unknown) Salari (unknown) (no (unknown) (unknown) Vitals (units (unkno wn) date) unknown) (unknown) (no (unknown) (unknown) Weight 188 lb (units ( unknown) date) unknown) (unknown) (no (unknown) (unknown) alcohol intake: (units (unknown) date) current unknown) (unknown) (no (unknown) (unknown) an onset later in (units (unknown) date) the day but she is unknown) not able to correlate any certain types of (unknown) (no (unknown) (unknown) any alleviating or (units (unknown) date) aggravating factors; unknown) however, the IV pain medicine she was (unknown) (no (unknown) (unknown) at night. She is (units (unknown) date) unable to relate any unknown) correlation with this particular pain to (unknown) (no (unknown) (unknown) because 'she (units (u nknown) date) couldn't take it unknown) anymore.' She still is having that right upper (unknown) (no (unknown) (unknown) can ask a second (units (unknown) date) opinion on this unknown) issue there as well. (unknown) (no (unknown) (unknown) certain types of (units (unknown) date) food or timing unknown) related to food. She is very particular about (unknown) (no (unknown) (unknown) constipation #238 (units (unknown) date) grams 05/29/22 [Rx unknown) Confirmed 07/04/22] (unknown) (no (unknown) (unknown) diazepam [From (units (unknown) date) Valium] Allergy unknown) (Intermediate, Verified 07/04/22 13:07) (unknown) (no (unknown) (unknown) diff colitis as (units (unknown) date) well. Her mother has unknown) psoriasis. (unknown) (no (unknown) (unknown) docusate sodium 100 (unit s (unknown) date) mg capsule (Colace) unknown) 100 - 200 mg PO DAILY PRN constipation (unknown) (no (unknown) (unknown) dry rash on wrist (units (unknown) date) flexor side and unknown) Metacarpel joints. There is a lesion on the (unknown) (no (unknown) (unknown) experiencing is (units (unknown) date) related to her unknown) gallstone. (unknown) (no (unknown) (unknown) fact she had a (units (unknown) date) colonoscopy less unknown) than a year ago in August [address] Arboleda (unknown) (no (unknown) (unknown) food or any really (units (unknown) date) specific timing unknown) surrounding the pain. Given this and the (unknown) (no (unknown) (unknown) for Samantha to (units (u nknown) date) continue to monitor unknown) the pain and see if she can start to correlate (unknown) (no (unknown) (unknown) gallbladder (units (un known) date) symptoms. Her pain unknown) is in the right upper quadrant and tends to have (unknown) (no (unknown) (unknown) given in the (units (un known) date) emergency room unknown) caused her to throw up and become very nauseated and (unknown) (no (unknown) (unknown) have occurred. If (units (unknown) date) there are any unknown) questions, please contact the Medical Records (unknown) (no (unknown) (unknown) here at [facility] (units (unknown) date) [facility]. The left unknown) part of the colon was able to be examined (unknown) (no (unknown) (unknown) household members: (units (unknown) date) family unknown) (unknown) (no (unknown) (unknown) however during the (units (unknown) date) colonoscopy she had unknown) a ?seizure? and he was unable to finish. (unknown) (no (unknown) (unknown) hurting as well. (units (unknown) date) She was having unknown) bloody stools but this is not new for her. In (unknown) (no (unknown) (unknown) ibuprofen 200 mg (units (unknown) date) tablet 200 mg PO Q6H unknown) PRN 05/29/22 [History Confirmed 07/04/22] (unknown) (no (unknown) (unknown) interphalangeal (units (unknown) date) joint she says is unknown) from 'chewing' on her finger. (unknown) (no (unknown) (unknown) lack of any sign of (unit s (unknown) date) cholecystitis on her unknown) imaging studies, as well as non (unknown) (no (unknown) (unknown) laparoscopic (units (u nknown) date) cholecystectomy at unknown) that time. She and her mom understand are okay (unknown) (no (unknown) (unknown) last month. (units (un known) date) Otherwise the pain unknown) occurs about 4 times a week she does not relate (unknown) (no (unknown) (unknown) like the taste of (units (unknown) date) it. She has a follow unknown) up with gastroenterology in the next few (unknown) (no (unknown) (unknown) localized pain on (units (unknown) date) her exam, it is unknown) simply not 100% clear that the pain she is (unknown) (no (unknown) (unknown) may occur. (units (unk nown) date) Occasional unknown) wrong-word or 'sound-alike' substitutions may have (unknown) (no (unknown) (unknown) mother having been (units (unknown) date) referred by her unknown) primary care physician. Three days before (unknown) (no (unknown) (unknown) occurred due to the (unit s (unknown) date) inherent limitations unknown) of voice recognition software. Please (unknown) (no (unknown) (unknown) ondansetron HCl 4 (units (unknown) date) mg tablet 4 mg PO unknown) DAILY PRN nausea #30 tabs 05/29/22 [Rx (unknown) (no (unknown) (unknown) ongoing. She calls (units (unknown) date) them her ?gastro unknown) problems?. These seemed to have gotten (unknown) (no (unknown) (unknown) pains are going to (units (unknown) date) be due to a unknown) gallstone, but it is possible that the right (unknown) (no (unknown) (unknown) polyethylene glycol (unit s (unknown) date) 3350 17 gram/dose unknown) oral powder (Miralax) 17 g PO DAILY PRN (unknown) (no (unknown) (unknown) portion of her (units (unknown) date) metacarpal joints on unknown) both hands since around the time of the C (unknown) (no (unknown) (unknown) quadrant pain: it (units (unknown) date) comes and goes. She unknown) says that it is worse in the afternoon or (unknown) (no (unknown) (unknown) read the note (units ( unknown) date) carefully and unknown) recognize, using context, where these substitutions (unknown) (no (unknown) (unknown) recommended to take (unit s (unknown) date) Metamucil which she unknown) sometimes does take but does not really (unknown) (no (unknown) (unknown) relates emesis and (units (unknown) date) aching all over. She unknown) said that episode started 3 days before (unknown) (no (unknown) (unknown) relates that in (units (unknown) date) addition to unknown) abdominal pain, her neck, and her head and back were (unknown) (no (unknown) (unknown) second hand (units (un known) date) exposure: Yes unknown) (unknown) (no (unknown) (unknown) sentences (units (unkn own) date) unknown) (unknown) (no (unknown) (unknown) sharp abdominal (units (unknown) date) pains and slimy and unknown) bloody bowel movements. She has been (unknown) (no (unknown) (unknown) she will eat is (units (unknown) date) mushrooms and unknown) spinach. And she likes candy. (unknown) (no (unknown) (unknown) sick. She says that (unit s (unknown) date) she never had the unknown) right upper quadrant pain before (unknown) (no (unknown) (unknown) software. Although (units (unknown) date) every effort is made unknown) to edit content, surgical instruments inspector errors (unknown) (no (unknown) (unknown) some of the typical (units (unknown) date) gallbladder symptoms unknown) with the pain that she is experiencing. (unknown) (no (unknown) (unknown) some subset of her (units (unknown) date) symptoms, she can unknown) return to the office and discuss (unknown) (no (unknown) (unknown) stools. On the (units (unknown) date) episode of pain unknown) where she went to the emergency room she also (unknown) (no (unknown) (unknown) substance use type: (unit s (unknown) date) does not use unknown) (unknown) (no (unknown) (unknown) symptoms with the (units (unknown) date) bowel movements and unknown) the mucus and other various abdominal (unknown) (no (unknown) (unknown) think this will (units (unknown) date) help with bowel unknown) movements and other various abdominal pains. (unknown) (no (unknown) (unknown) to the gallstone. I (unit s (unknown) date) did spend a good unknown) amount of time discussing typical (unknown) (no (unknown) (unknown) treated for the (units (unknown) date) colitis and the unknown) severe diarrhea improved but she is still having (unknown) (no (unknown) (unknown) upper quadrant pain (unit s (unknown) date) that she felt around unknown) the time of Thanksgiving is related. (unknown) (no (unknown) (unknown) weeks. She also (units (unknown) date) relates that she has unknown) had a rash on her wrists and the flexor (unknown) (no (unknown) (unknown) what she eats and (units (unknown) date) really will only eat unknown) a few things: frozen breakfast burritos (unknown) (no (unknown) (unknown) with ham egg and (units (unknown) date) cheese, block of unknown) cheese, macaroni and cheese; the only fiber (unknown) (no (unknown) (unknown) with that plan. (units (unknown) date) They will be seeing unknown) a operations director in follow up soon and (unknown) (no (unknown) (unknown) without biliary (units (unknown) date) obstruction unknown) Qualified Code(s): K80.20 - Calculus of gallbladder (unknown) (no (unknown) (unknown) without (units (unkno wn) date) cholecystitis unknown) without obstruction (unknown) (no (unknown) (unknown) worse since an (units (unknown) date) episode of C diff unknown) colitis that she had in January of last year. (unknown) (no (unknown) (unknown) zolpidem [From (units (unknown) date) Ambien] Adverse unknown) Reaction (Severe, Verified 07/04/22 13:07) Social History date description facility 2022-07-04 00:00 Ex-smoker ([facility] Vital Signs date measurement value units 2022-07-04 00:00 BMI 32.2 kg/m2 2022-07-04 00:00 BP_diastolic 76 mmHg 2022-07-04 00:00 BP_systolic 118 mmHg 2022-07-04 00:00 heart_rate 97 /min 2022-07-04 00:00 height_metric 162.56 cm 2022-07-04 00:00 height_standard 64 in 2022-07-04 00:00 o2_saturation 99 % 2022-07-04 00:00 temperature_metric 36.67 C 2022-07-04 00:00 temperature_standard 98 F 2022-07-04 00:00 weight_metric 85.27 kg 2022-07-04 00:00 weight_standard 187.99 lb
[2022-09-11 11:17] LABS: BASOPHILS % (AUTO) 0.2 %; EOSINOPHILS # (AUTO) 0.1 10^3/uL (0.0-0.7); EOSINOPHILS % (AUTO) 0.9 %; HCT - HEMATOCRIT 42.3 % (37.0-47.0); HGB - HEMOGLOBIN 13.8 g/dL (12.0-16.0); LYMPHOCYTES # (AUTO) 2.3 10^3/uL (1.5-3.5); LYMPHOCYTES % (AUTO) 17.7 %; MEAN CORPUSCULAR HEMOGLOBIN 28.6 pg (27.0-31.0); MEAN CORPUSCULAR HGB CONC 32.6 g/dL (32.0-36.0); MEAN CORPUSCULAR VOLUME 87.6 fL (81.0-99.0); MONOCYTES # (AUTO) 0.7 10^3/uL (0.0-1.0); MONOCYTES % (AUTO) 5.6 %; NEUTROPHILS # (AUTO) 9.6 10^3/uL (1.5-6.6); NEUTROPHILS % (AUTO) 75.2 %; PLT - PLATELET COUNT 380 10^3/uL (130-450); RED BLOOD COUNT 4.83 10^6/uL (4.20-5.40); RED CELL DISTRIBUTION WIDTH 12.6 % (12.0-15.0); WHITE BLOOD COUNT 12.8 x10^3/uL (4.8-10.8)
[2022-09-11 11:29] LABS: ALBUMIN 3.9 g/dL (3.2-5.5); ALBUMIN/GLOBULIN RATIO 0.9 (1.0-2.2); BILIRUBIN,TOTAL 0.4 mg/dL (0.2-1.0); CALCIUM 8.8 mg/dL (8.5-10.3); CREATININE 0.7 mg/dL (0.4-1.0); POTASSIUM 4.2 mmol/L (3.5-5.0); TOTAL PROTEIN 8.1 g/dL (6.7-8.2)
[2022-09-11 12:25] LABS: B. PARAPERTUSSIS- RESP PCR PAN NOT DETECTED; B. PERTUSSIS- RESP PCR PANEL NOT DETECTED; C. PNEUMONIAE- RESP PCR PANEL NOT DETECTED; CORONAVIRUS 229E-RESP PCR NOT DETECTED; CORONAVIRUS HKU1-RESP PCR NOT DETECTED; CORONAVIRUS NL63-RESP PCR NOT DETECTED; CORONAVIRUS OC43-RESP PCR NOT DETECTED; HUMAN METAPNEUMOVIRUS NOT DETECTED; INFLUENZA A- RESP PCR PANEL NOT DETECTED; INFLUENZA B - RESP PCR PANEL NOT DETECTED; M. PNEUMONIAE- RESP PCR PANEL NOT DETECTED; PARAINFLUENZA VIRUS 1 NOT DETECTED; PARAINFLUENZA VIRUS 2 NOT DETECTED; PARAINFLUENZA VIRUS 3 NOT DETECTED; PARAINFLUENZA VIRUS 4 NOT DETECTED; RHINOVIRUS/ENTEROVIRUS DETECTED; RSV- RESP PCR PANEL NOT DETECTED; SARS-CoV-2 -RESP PCR PANEL NOT DETECTED
== END 2022-09-11 12:14 | disposition left against medical advice (07) ==
LOC: ED 10:37
DX: Z53.29 Procedure and treatment not carried out because of patient's decision for other reasons (principal)
CPT/HCPCS: 36415; 80053; 83690; 85025; 87633

== ENCOUNTER 2022-09-11 12:20 | Outpatient (CLI) | payer MEDICARE, MEDICAID | END 2022-09-11 12:21 | disposition EMS.NT | LOC: EMS 12:20 | DX: M54.50 Low back pain, unspecified (principal); R19.7 Diarrhea, unspecified ==

== ENCOUNTER 2022-09-11 12:30 | Emergency (ER) | payer MEDICARE, MEDICAID ==
[2022-09-11 12:39] VITALS: BP 131/73
[2022-09-11 13:08] LABS: MUDS CUTOFF CONCENTRATIONS CUTOFF CONC BELOW:
--- OUTSIDE RECORDS SUMMARY | 2022-09-11 13:09 | EXTERNAL MEDICAL SUMMARY RPT | Continuity of Care Document ---
:1995 Author Organization [facility] Address [address] [place] [address] Phone Care Team Providers Name Role Phone [...] wn) date) unknown) (unknown) (no (unknown) (unknown) [id number] (units (unkno wn) date) unknown) (unknown) (no (unknown) (unknown) Age/Sex: 26 / F (units (unknown) date) Date of Service: unknown) (unknown) (no (unknown) (unknown) Allergic (units (unkno wn) date) rhinitis (2007) unknown) (unknown) (no (unknown) (unknown) Allergies (units (unkn own) date) unknown) (unknown) (no (unknown) (unknown) [place], [place] (units ( unknown) date) [id number] unknown) (unknown) (no (unknown) (unknown) Anxiety () [...] (unknown) (unknown) : 1995 (units (unknown) date) Acct:[id number] unknown) (unknown) (no (unknown) (unknown) Dept at [...] (unknown) (unknown) Visit Reasons: (units (unknown) 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) by Izabella (unknown) (no [...] unknown) effort is made to edit content, vice president errors (unknown) (no (unknown) (unknown) substance use [...] wn) date) unknown) (unknown) (no (unknown) (unknown) [id number] (units (unkno wn) date) unknown) (unknown) (no (unknown) (unknown) Age/Sex: 26 / F (units (unknown) date) Date of Service: unknown) (unknown) (no (unknown) (unknown) Allergic (units (unkno wn) date) rhinitis (2007) unknown) (unknown) (no (unknown) (unknown) Allergies (units (unkn own) date) unknown) (unknown) (no (unknown) (unknown) [place], [place] (units ( unknown) date) [id number] unknown) (unknown) (no (unknown) (unknown) Anxiety () [...] (unknown) (unknown) : 1995 (units (unknown) date) Acct:[id number] unknown) (unknown) (no (unknown) (unknown) Dept at [...] (unknown) (unknown) Visit Reasons: (units (unknown) 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) by Izabella (unknown) (no [...] unknown) effort is made to edit content, vice president errors (unknown) (no (unknown) (unknown) substance use [...] wn) date) unknown) (unknown) (no (unknown) (unknown) [id number] (units (unkno wn) date) unknown) (unknown) (no (unknown) (unknown) Age/Sex: 26 / F (units (unknown) date) Date of Service: unknown) (unknown) (no (unknown) (unknown) Allergic rhinitis (units (unknown) date) (2007) unknown) (unknown) (no (unknown) (unknown) Allergies (units (unkn own) date) unknown) (unknown) (no (unknown) (unknown) [place], [place] (units ( unknown) date) [id number] unknown) (unknown) (no (unknown) (unknown) Anxiety (-1998) [...] (unknown) (unknown) : 1995 (units (unknown) date) Acct:[id number] unknown) (unknown) (no (unknown) (unknown) Dept at [...] occasional) (unknown) (no (unknown) (unknown) 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 by unknown) [...] unknown) effort is made to edit content, vice president errors (unknown) (no (unknown) (unknown) substance use [...] wn) date) unknown) (unknown) (no (unknown) (unknown) [id number] (units (unkno wn) date) unknown) (unknown) (no (unknown) (unknown) Age/Sex: 26 / F (units (unknown) date) Date of Service: unknown) (unknown) (no (unknown) (unknown) Allergic rhinitis (units (unknown) date) (2007) unknown) (unknown) (no (unknown) (unknown) Allergies (units (unkn own) date) unknown) (unknown) (no (unknown) (unknown) [place], [place] (units ( unknown) date) [id number] unknown) (unknown) (no (unknown) (unknown) Anxiety () [...] (unknown) (unknown) : 1995 (units (unknown) date) Acct:[id number] unknown) (unknown) (no (unknown) (unknown) Dept at [...] occasional) (unknown) (no (unknown) (unknown) 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 by unknown) [...] unknown) effort is made to edit content, vice president errors (unknown) (no (unknown) (unknown) substance use [...] wn) date) unknown) (unknown) (no (unknown) (unknown) [id number] (units (unkno wn) date) unknown) (unknown) (no [...] office today having (unknown) (no (unknown) (unknown) [place], [place] (units ( unknown) date) [id number] unknown) (unknown) (no (unknown) (unknown) Anxiety (-1998) [...] (unknown) (unknown) : 1995 (units (unknown) date) Acct:[id number] unknown) (unknown) (no (unknown) (unknown) Dept at [...] occasional) (unknown) (no (unknown) (unknown) 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 by unknown) [...] unknown) effort is made to edit content, vice president errors (unknown) (no (unknown) (unknown) substance use [...] wn) date) unknown) (unknown) (no (unknown) (unknown) [id number] (units (unkno wn) date) unknown) (unknown) (no [...] own) date) unknown) (unknown) (no (unknown) (unknown) [place] [address] (unit s (unknown) date) unknown) (unknown) (no [...] (unknown) (unknown) : 1995 (units (unknown) date) Acct:[id number] unknown) (unknown) (no (unknown) (unknown) Dept at [...] occasional) (unknown) (no (unknown) (unknown) 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 The [...] effort is made unknown) to edit content, vice president errors (unknown) (no (unknown) (unknown) some of [...] date) They will be seeing unknown) a student activities director in follow up soon and (unknown) [...] History date description facility 2022-07-04 00:00 Ex-smoker ([facility] Vital Signs date measurement value units 2022-07-04 [...]
[2022-09-11 13:14] LABS: GLUCOSE, URINE (UA) NEGATIVE (NEGATIVE); KETONES,URINE (UA) 15 mg/dL (NEGATIVE); LEUKOCYTE ESTERASE, URINE TRACE (NEGATIVE); NITRITE,URINE NEGATIVE (NEGATIVE); OCCULT BLOOD,URINE SMALL (NEGATIVE); PH,URINE 5.5 PH (5.0-7.5); PROTEIN,URINE 30 mg/dL (NEGATIVE); UROBILINOGEN,URINE 2 E.U./dL (NORMAL)
[2022-09-11 13:15] LABS: CLARITY,URINE HAZY (CLEAR); HCG UR QUAL NEGATIVE
[2022-09-11 13:18] LABS: BILIRUBIN,URINE NEGATIVE (NEGATIVE); ICTOTEST,URINE NEGATIVE
[2022-09-11 13:21] LABS: BENZODIAZEPINES SCREEN, URINE POSITIVE (NEGATIVE); METHAMPHETAMINES SCREEN, URINE POSITIVE (NEGATIVE)
[2022-09-11 13:22] LABS: AMPHETAMINE SCREEN,URINE NEGATIVE (NEGATIVE); BARBITURATE SCREEN,UR NEGATIVE (NEGATIVE); COCAINE SCREEN URINE NEGATIVE (NEGATIVE); METHADONE SCREEN, URINE NEGATIVE (NEGATIVE); OPIATE SCREEN, URINE NEGATIVE (NEGATIVE); OXYCODONE SCREEN, URINE NEGATIVE (NEGATIVE); PROPOXYPHENE SCREEN, URINE NEGATIVE (NEGATIVE); THC CANNABINOID SCREEN, URINE NEGATIVE (NEGATIVE); TRICYCLIC ANTIDEPRESSANT,URINE NEGATIVE (NEGATIVE)
[2022-09-11 13:24] LABS: ACETAMINOPHEN 11 ug/mL (10-30); ALBUMIN/GLOBULIN RATIO 0.9 (1.0-2.2); ALKALINE PHOSPHATASE 126 IU/L (42-121); ALT ALANINE AMINOTRANSFERASE 23 IU/L (10-60); AST ASPARTATE AMINOTRANSFERASE 27 IU/L (10-42); BILIRUBIN,TOTAL 0.3 mg/dL (0.2-1.0); BUN - BLOOD UREA NITROGEN 10 mg/dL (6-20); CALCIUM 8.9 mg/dL (8.5-10.3); CARBON DIOXIDE - CO2 23 mmol/L (21-32); CHLORIDE 105 mmol/L (101-111); CK- CREATINE KINASE 73 IU/L (22-269); CREATININE 0.8 mg/dL (0.4-1.0); ETOH - ETHANOL < 5.0 mg/dL; GFR - MDRD 87 (>89); GLUCOSE 95 mg/dL (70-100); LIPASE 31 U/L (22-51); MAGNESIUM 2.1 mg/dL (1.7-2.8); POTASSIUM 3.6 mmol/L (3.5-5.0); SALICYLATE < 6.0 mg/dL; SODIUM 137 mmol/L (135-145); TOTAL PROTEIN 8.4 g/dL (6.7-8.2)
[2022-09-11 13:28] LABS: BASOPHILS # (AUTO) 0.1 10^3/uL (0.0-0.1); BASOPHILS % (AUTO) 0.4 %; EOSINOPHILS # (AUTO) 0.1 10^3/uL (0.0-0.7); EOSINOPHILS % (AUTO) 0.4 %; HCT - HEMATOCRIT 42.7 % (37.0-47.0); HGB - HEMOGLOBIN 13.6 g/dL (12.0-16.0); LYMPHOCYTES % (AUTO) 14.8 %; MEAN CORPUSCULAR HEMOGLOBIN 28.3 pg (27.0-31.0); MEAN CORPUSCULAR HGB CONC 31.9 g/dL (32.0-36.0); MEAN CORPUSCULAR VOLUME 88.8 fL (81.0-99.0); MEAN PLATELET VOLUME 10.2 fL (7.9-10.8); MONOCYTES # (AUTO) 0.7 10^3/uL (0.0-1.0); MONOCYTES % (AUTO) 5.3 %; NEUTROPHILS # (AUTO) 10.8 10^3/uL (1.5-6.6); NEUTROPHILS % (AUTO) 78.8 %; PLT - PLATELET COUNT 387 10^3/uL (130-450); RED BLOOD COUNT 4.81 10^6/uL (4.20-5.40); RED CELL DISTRIBUTION WIDTH 12.5 % (12.0-15.0); WHITE BLOOD COUNT 13.7 x10^3/uL (4.8-10.8)
[2022-09-11 13:35] LABS: RBC,URINE 0-5 /HPF (0-5); SQUAMOUS EPITHELIAL CELL,UR MOD Squamous (<= Few); WBC CLUMPS,URINE PRESENT
[2022-09-11] MEDS ORDERED: ONDANSETRON 4 MG/2 ML VIAL IVP STA (13:35)
[2022-09-11] MEDS ORDERED: KETOROLAC 15 MG/ML VIAL IVP STA (13:35)
[2022-09-11] MEDS ORDERED: SODIUM CHLORIDE 0.9% 1,000 ML IV STA (13:35)
[2022-09-11 13:36] LABS: BACTERIA,URINE Moderate /HPF (None Seen)
--- NOTE | 2022-09-11 13:36 | ED Physician Documentation ---
PD HPI MHE - Stated complaint Stated Complaint: MHE - Chief complaint Chief Complaint: MHE - History obtained from History obtained from: Patient - Additional information Additional information: 25-year-old woman with chronic GI issues and mental health issues has been sick for the last 4 days with vomiting and diarrhea. She says she just cannot take it anymore and she does not have any coping skills to deal with illness and because of that she became suicidal thinking about drowning herself at with speech. She vacillates as to whether she is still suicidal or not. She does not remember using methamphetamines recently. 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 Estradiol 1 tab PO DAILY 08/10/21 08/10/21 [Nortrel 1-35 28 Tablet] Dicyclomine [Bentyl] 10 mg PO BID PRN #20 cap 05/09/22 L.acid/L.casei/B.bif/B.bethany/Fos 1 each PO BID 15 Days #30 cap 05/09/22 [Probiotic Blend Capsule] Loperamide HCl [Imodium A-D] 2 mg PO Q6H PRN #20 tablet 05/09/22 - Allergies Allergies/Adverse Reactions: Allergies Allergy/AdvReac Type Severity Reaction Status Date / Time acetaminophen [From Percocet] AdvReac Respiratory Verified 09/11/22 12:39 diazepam [From Valium] AdvReac Hallucinati Verified 09/11/22 12:39 ons oxycodone [From Percocet] AdvReac Respiratory Verified 09/11/22 12:39 zolpidem [From Ambien] AdvReac Hallucinati Verified 09/11/22 12:39 ons - Social History Does the pt smoke?: Yes Smoking Status: Current every day smoker Does the pt drink ETOH?: Yes Does the pt have substance abuse?: No - Immunizations Immunizations are current?: Yes - POLST Patient has POLST: No PD ED PE NORMAL - Vitals Vital signs reviewed: Yes - General General: Alert and oriented X 3, No acute distress, Other (Mildly pressured speech but cooperative) - HEENT HEENT: PERRL, EOMI - Neck Neck: Supple, no meningeal sign, No bony TTP - Cardiac Cardiac: RRR, No murmur - Respiratory Respiratory: No respiratory distress, Clear bilaterally - Abdomen Abdomen: Normal bowel sounds, Soft, Non tender - Back Back: No CVA TTP, No spinal TTP - Derm Derm: Normal color, Warm and dry - Neuro Neuro: Alert and oriented X 3, Normal speech Results - Vitals Vitals: Vital Signs - 24 hr 09/11/22 12:34 Temperature 37.0 C Heart Rate 93 Respiratory 20 Rate Blood Pressure 131/73 H O2 Saturation 96 Oxygen O2 Source Room air - Labs Labs: Laboratory Tests 09/11/22 09/11/22 09/11/22 12:45 13:02 13:02 WBC 13.7 H RBC 4.81 Hgb 13.6 Hct 42.7 MCV 88.8 MCH 28.3 MCHC 31.9 L RDW 12.5 Plt Count 387 MPV 10.2 Neut # (Auto) 10.8 H Lymph # (Auto) 2.0 [place] # (Auto) 0.7 Eos # (Auto) 0.1 Baso # (Auto) 0.1 Absolute Nucleated RBC 0.00 Nucleated RBC % 0.0 Sodium 137 Potassium 3.6 Chloride 105 Carbon Dioxide 23 Anion Gap 9.0 BUN 10 Creatinine 0.8 Estimated GFR (MDRD) 87 L Glucose 95 Calcium 8.9 Magnesium 2.1 Total Bilirubin 0.3 AST 27 ALT 23 Alkaline Phosphatase 126 H Total Creatine Kinase 73 Total Protein 8.4 H Albumin 4.0 Globulin 4.4 H Albumin/Globulin Ratio 0.9 L Lipase 31 Urine Color DARK YELLOW Urine Clarity HAZY Urine pH 5.5 Ur Specific [place] >=1.030 H Urine Protein 30 H Urine Glucose (UA) NEGATIVE Urine Ketones 15 H Urine Occult Blood SMALL H Urine Nitrite NEGATIVE Urine Bilirubin NEGATIVE Urine Urobilinogen 2 H Ur Leukocyte Esterase TRACE H Urine RBC 0-5 Urine WBC 11-25 H Urine WBC Clumps PRESENT Ur Squamous Epith Cells MOD Squamous H Urine Bacteria Moderate H Ur Microscopic Review INDICATED Urine Culture Comments NOT INDICATED Urine HCG, Qual NEGATIVE Salicylates < 6.0 Urine Opiates Screen NEGATIVE Ur Oxycodone Screen NEGATIVE Urine Methadone Screen NEGATIVE Ur Propoxyphene Screen NEGATIVE Acetaminophen 11 Ur Barbiturates Screen NEGATIVE Ur Tricyclics Screen NEGATIVE Ur Phencyclidine Scrn NEGATIVE Ur Amphetamine Screen NEGATIVE U Methamphetamines Scrn POSITIVE H U Benzodiazepines Scrn POSITIVE H Urine Cocaine Screen NEGATIVE U Cannabinoids Screen NEGATIVE Ethyl Alcohol < 5.0 SARS-CoV-2 (PCR) 09/11/22 14:00 WBC RBC Hgb Hct MCV MCH MCHC RDW Plt Count MPV Neut # (Auto) Lymph # (Auto) [place] # (Auto) Eos # (Auto) Baso # (Auto) Absolute Nucleated RBC Nucleated RBC % Sodium Potassium Chloride Carbon Dioxide Anion Gap BUN Creatinine Estimated GFR (MDRD) Glucose Calcium Magnesium Total Bilirubin AST ALT Alkaline Phosphatase Total Creatine Kinase Total Protein Albumin Globulin Albumin/Globulin Ratio Lipase Urine Color Urine Clarity Urine pH Ur Specific [place] Urine Protein Urine Glucose (UA) Urine Ketones Urine Occult Blood Urine Nitrite Urine Bilirubin Urine Urobilinogen Ur Leukocyte Esterase Urine RBC Urine WBC Urine WBC Clumps Ur Squamous Epith Cells Urine Bacteria Ur Microscopic Review Urine Culture Comments Urine HCG, Qual Salicylates Urine Opiates Screen Ur Oxycodone Screen Urine Methadone Screen Ur Propoxyphene Screen Acetaminophen Ur Barbiturates Screen Ur Tricyclics Screen Ur Phencyclidine Scrn Ur Amphetamine Screen U Methamphetamines Scrn U Benzodiazepines Scrn Urine Cocaine Screen U Cannabinoids Screen Ethyl Alcohol SARS-CoV-2 (PCR) NOT DETECTED PD Medical Decision Making - ED course ED course: 26-year-old woman presents with an ongoing GI illness which is very frustrating for her. Because of that she had an outburst and claims suicidal ideation. She is no longer suicidal. She and the social media community manager spoke at length. And the social media community manager also spoke with her parents. The parents feel this is normal behavior for her. She is worried she has recurrence of C. difficile and was able to provide a stool sample here. Otherwise her work-up demonstrates CBC with mild leukocytosis. CMP basically normal. Urinalysis is contaminated. That said she does not have any symptoms of UTI. Toxicology screen positive for methamphetamines and benzodiazepines. COVID test negative. Parents are going to come pick her up and she is no longer suicidal. The social media community manager arranged for expedited follow-up with her therapist. Departure - Departure Disposition: Home, Self Care Clinical Impression: Anxiety, Chronic abdominal pain, Methamphetamine abuse Condition: Good Record reviewed to determine appropriate education?: Yes Instructions: ED Depression, ED Drug Abuse General Comments: You are seen today because of ongoing gastrointestinal symptoms. We have a pending test for C. difficile and we will call you if it is positive. Otherwise no specific findings were noted. You should follow-up with your primary care physician and your therapist in the next 1 to 2 days. Return if worse. We did note methamphetamines in your urine toxicology screen today. Please abstain from illicit drug use.
== END 2022-09-11 15:36 | disposition home or self-care (01) ==
LOC: ED 12:30
DX: F41.9 Anxiety disorder, unspecified (principal); R10.9 Unspecified abdominal pain; Z20.822 Contact with and (suspected) exposure to COVID-19
CPT/HCPCS: 36415; 80053; 80306; 80307; 81001; 81025; 82550; 83690; 83735; 84443; 85025; 87045; 87046; 87427; 87493; 87635; 96361; 96374; 99284; G0480; 80320; 80329; 81003; 87086

== ENCOUNTER 2023-05-04 02:42 | Outpatient (CLI) | payer MEDICARE, MEDICAID | END 2023-05-04 02:43 | disposition critical access hospital (66) | LOC: EMS 02:42 | DX: Z04.6 Encounter for general psychiatric examination, requested by authority (principal); R46.89 Other symptoms and signs involving appearance and behavior; R45.1 Restlessness and agitation; Z78.1 Physical restraint status | CPT/HCPCS: A0425; A0429 ==

== ENCOUNTER 2023-05-04 02:56 | Emergency (ER) | payer MEDICARE, MEDICAID ==
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
[2023-05-04] MEDS ORDERED: OLANZapine 10 MG VIAL IM STA (03:16)
--- NOTE | 2023-05-04 03:20 | ED Physician Documentation ---
Restraint [id number] - Immediate Situation Face to Face Evaluation Date: 05/04/23 Face to Face Evaluation Time: 03:20 Restraint Classification: Violent, chemical Restraint Type: Soft extremity (nonviolent soft restraints), Chemical (olanzapine) - Patient's Reaction & Behaviors Safety: Physically safe Verbal: Swearing (altered, intoxicated with marijuana) Harm: Potential harm to self Other: Attempting removal of medically necessary device(s) - Behavioral Condition Attitude: Guarded Behavior: Other (attempting to leave ED and remove medical devices, stating "I love the night", behaving bizarrely) Orientation: Person, Place, Time Mood: Labile - Evaluation Pertinent History/Illicit Drugs/Medications/Results: see mdm for details - Plan Need to Initiate/Renew Violent or Chemical Restraint: will discontinue when safe
[2023-05-04 03:40] LABS: BASOPHILS % (AUTO) 0.3 %; HCT - HEMATOCRIT 39.9 % (37.0-47.0); HGB - HEMOGLOBIN 13.6 g/dL (12.0-16.0); LYMPHOCYTES # (AUTO) 1.4 10^3/uL (1.5-3.5); LYMPHOCYTES % (AUTO) 9.8 %; MEAN CORPUSCULAR HEMOGLOBIN 29.4 pg (27.0-31.0); MEAN CORPUSCULAR HGB CONC 34.1 g/dL (32.0-36.0); MEAN CORPUSCULAR VOLUME 86.2 fL (81.0-99.0); MEAN PLATELET VOLUME 9.8 fL (7.9-10.8); MONOCYTES # (AUTO) 0.5 10^3/uL (0.0-1.0); MONOCYTES % (AUTO) 3.1 %; NEUTROPHILS # (AUTO) 12.6 10^3/uL (1.5-6.6); NEUTROPHILS % (AUTO) 86.3 %; PLT - PLATELET COUNT 461 10^3/uL (130-450); RED BLOOD COUNT 4.63 10^6/uL (4.20-5.40); RED CELL DISTRIBUTION WIDTH 12.6 % (12.0-15.0); WHITE BLOOD COUNT 14.6 x10^3/uL (4.8-10.8)
[2023-05-04 04:06] LABS: THYROID STIMULATING HORMONE 1.67 uIU/mL (0.34-5.60)
[2023-05-04 04:32] LABS: ACETAMINOPHEN < 0.1 ug/mL; ALBUMIN 4.4 g/dL (3.2-5.5); ALBUMIN/GLOBULIN RATIO 1.2 (1.0-2.2); ALKALINE PHOSPHATASE 99 IU/L (42-121); ALT ALANINE AMINOTRANSFERASE 16 IU/L (10-60); AST ASPARTATE AMINOTRANSFERASE 14 IU/L (10-42); BILIRUBIN,TOTAL 0.5 mg/dL (0.2-1.0); BUN - BLOOD UREA NITROGEN 12 mg/dL (6-20); CALCIUM 9.5 mg/dL (8.5-10.3); CARBON DIOXIDE - CO2 19 mmol/L (21-32); CHLORIDE 103 mmol/L (101-111); CK- CREATINE KINASE 56 IU/L (30-223); CREATININE 0.9 mg/dL (0.6-1.3); ETOH - ETHANOL < 10.0 mg/dL; GFR - MDRD 76 (>89); GLUCOSE 117 mg/dL (74-104); LIPASE 26 U/L (11-82); MAGNESIUM 1.6 mg/dL (1.7-2.3); POTASSIUM 3.2 mmol/L (3.5-4.5); SALICYLATE < 1.5 mg/dL; SODIUM 137 mmol/L (135-145); TOTAL PROTEIN 8.1 g/dL (6.4-8.9)
--- NOTE | 2023-05-04 04:34 | ED Physician Documentation ---
Restraint Fezz-ph-Lier - Immediate Situation Face to Face Evaluation Date: 05/04/23 Face to Face Evaluation Time: 04:35 Restraint Classification: Violent, physical Restraint Type: Locked extremity - Patient's Reaction & Behaviors Safety: Physically safe Verbal: Crying/Tearful, Screaming/Yelling Harm: Potential harm to self, Verbalizes intent to harm Physical: Fighting restraints Other: Disruption of therapy, Attempting removal of medically necessary device(s) - Behavioral Condition Attitude: Guarded Behavior: Agitated Orientation: Person, Place, Time Mood: Labile - Evaluation Pertinent History/Illicit Drugs/Medications/Results: see mdm for details
[2023-05-04] MEDS ORDERED: busPIRone 5 MG TABLET PO STA (06:38)
[2023-05-04] MEDS ORDERED: clonazePAM 0.5 MG TABLET PO STA (06:39)
[2023-05-04 08:44] LABS: MUDS CUTOFF CONCENTRATIONS CUTOFF CONC BELOW:
[2023-05-04 08:48] LABS: BILIRUBIN,URINE NEGATIVE (NEGATIVE); GLUCOSE, URINE (UA) NEGATIVE (NEGATIVE); KETONES,URINE (UA) 15 mg/dL (NEGATIVE); LEUKOCYTE ESTERASE, URINE NEGATIVE (NEGATIVE); NITRITE,URINE NEGATIVE (NEGATIVE); OCCULT BLOOD,URINE NEGATIVE (NEGATIVE); PROTEIN,URINE NEGATIVE (NEGATIVE); UROBILINOGEN,URINE 1 (NORMAL) E.U./dL (NORMAL)
[2023-05-04 08:50] LABS: CLARITY,URINE CLEAR (CLEAR); HCG UR QUAL NEGATIVE
[2023-05-04 09:00] LABS: AMPHETAMINE SCREEN,URINE NEGATIVE (NEGATIVE); BARBITURATE SCREEN,UR NEGATIVE (NEGATIVE); BENZODIAZEPINES SCREEN, URINE POSITIVE (NEGATIVE); COCAINE SCREEN URINE NEGATIVE (NEGATIVE); METHADONE SCREEN, URINE NEGATIVE (NEGATIVE); METHAMPHETAMINES SCREEN, URINE NEGATIVE (NEGATIVE); OPIATE SCREEN, URINE NEGATIVE (NEGATIVE); OXYCODONE SCREEN, URINE NEGATIVE (NEGATIVE); PROPOXYPHENE SCREEN, URINE NEGATIVE (NEGATIVE); THC CANNABINOID SCREEN, URINE POSITIVE (NEGATIVE); TRICYCLIC ANTIDEPRESSANT,URINE NEGATIVE (NEGATIVE)
--- NOTE | 2023-05-04 12:11 | ED Physician Documentation ---
ED Addendum - Addendum Addendum: 05/04/23 12:09Social work talked with the patient who has been calm and relaxed through the morning and did sleep in. The patient was pleasant and talkative. Social work talked with the patient as well as her mother and reviewed the information about overnight. Safety plan was involved and social work felt the patient was not at risk for discharge. There was no report of suicidal ideation in the report or last night. The erratic behaviors improved on arrival or soon after arrival and medication. She has been doing well for several hours now since change of shift that I have seen. The patient can be discharged home at this point. The plan is for her to have counseling tomorrow and continue usual medications and home with her parents where she typically lives. Disposition: The patient discharged home in stable condition. Diagnoses: 1. History of depression 2. Erratic behavior 3. Side effect of cannabis.
[2023-05-04 12:52] VITALS: BP 135/74; O2SAT 100
== END 2023-05-04 12:48 | disposition home or self-care (01) ==
LOC: EDUNIT# → ED 02:56
DX: R45.1 Restlessness and agitation (principal); T40.715A Adverse effect of cannabis, initial encounter; F12.929 Cannabis use, unspecified with intoxication, unspecified; F17.200 Nicotine dependence, unspecified, uncomplicated; Z86.59 Personal history of other mental and behavioral disorders; Z78.1 Physical restraint status
CPT/HCPCS: 36415; 80053; 80306; 80307; 81003; 81025; 82550; 83690; 83735; 84443; 84702; 85025; 96372; 99284; 99285; A9270; G0480; 80320; 80329; 81001; 87086

== ENCOUNTER 2023-12-18 13:42 | Outpatient (CLI) | payer MEDICARE, MEDICAID ==
--- NOTE | 2023-12-18 14:46 | Sleep Patient Instructions ---
Sleep Center Visit Summary - Patient Visit Information Reason for Visit: Initial consult for evaluation of sleep disordered breathing and other sleep issues. - Patient Instructions Instructions Attached: Sleep Study Home Monitor Additional Instructions: You will be completing a sleep study, either an in-lab polysomnography (PSG) or home sleep study (HST). You will follow-up in the sleep care office after the sleep study is completed to hear the results and talk about therapy, if needed. You will be called by our office staff to schedule this appointment, but you may contact us with any questions. - Clinic Information Contact: [facility] [address] [place] [address] [email or web address] T: [phone]
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
[2023-12-18 15:01] VITALS: BP 138/96; O2SAT 95
== END 2023-12-18 13:43 | disposition home or self-care (01) ==
LOC: SC 13:42
PROVIDERS: ATTEND Nurse Practitioner Family
DX: G47.8 Other sleep disorders (principal); R51.9 Headache, unspecified; E66.9 Obesity, unspecified; Z68.30 Body mass index [BMI] 30.0-30.9, adult; F17.290 Nicotine dependence, other tobacco product, uncomplicated; F90.9 Attention-deficit hyperactivity disorder, unspecified type; F41.9 Anxiety disorder, unspecified; F84.0 Autistic disorder
CPT/HCPCS: 99203; G0463; 99212